=== PATIENT | female | born 1940 | race Caucasian/White ===

== ENCOUNTER 2020-06-04 11:18 | Inpatient (IN) | payer MEDICARE ==
[~2020-06-04 11:18] MED LIST: DEXAMETHASONE SOD PHOSPHATE INJ 4 MG/1 ML VIAL ONE; ETOMIDATE INJ/PF 20 MG/10 ML SDV IV ONE; ONDANSETRON HCL INJ/PF 4 MG/2 ML SDV ONE; PHENYLEPHRINE HCL INJ/PF 10 MG/1 ML SDV ONE
--- NOTE | 2020-06-04 11:29 | ER Document Report ---
ED Medical Screen (RME) - General Chief Complaint: Pain All Over Stated Complaint: PAIN ALL OVER Time Seen by Provider: 06/04/20 11:25 Mode of Arrival: Medic Information source: Patient Notes: 79-year-old female presented to ED for pain all over for week. She states she has not had any fevers. She states in her abdomen or chest back she hurts everywhere. We did attempt to get her feet temperature and we could not get a temperature to read. The pulse ox that there a pulse was 150 but her apical pulse was 100 O2 sats are very low she does look very anemic. We will take her back to her room promptly. I have greeted and performed a rapid initial assessment of this patient. A comprehensive ED assessment and evaluation of the patient, analysis of test results and completion of medical decision making process will be conducted by an additional ED providers.
[2020-06-04] MEDS ORDERED: NORMAL SALINE 1000 ML 1,000 ML IV ONE ×3 (11:44→13:35)
[2020-06-04 12:24] LABS: ABSOLUTE LYMPHOCYTES (AUTO) 1.6 10^3/uL (0.5-4.7); ABSOLUTE MONOCYTES (AUTO) 0.4 10^3/uL (0.1-1.4); ABSOLUTE NEUT (AUTO) 12.3 10^3/uL (1.7-8.2); BASOPHILS % (AUTO) 0.1 % (0-2); LYMPHOCYTES % (AUTO) 11.2 % (13-45); MEAN CORPUSCULAR HEMOGLOBIN 21.3 pg (27.0-33.4); MEAN CORPUSCULAR HGB CONC 28.6 g/dL (32.0-36.0); MEAN CORPUSCULAR VOLUME 75 fl (80-97); PLATELET COUNT 912 10^3/uL (150-450); RED BLOOD COUNT 3.76 10^6/uL (3.72-5.28); RED CELL DISTRIBUTION WIDTH 16.3 % (11.5-14.0); SEGMENTED NEUTROPHILS % (AUTO) 85.7 % (42-78); TOTAL CELLS COUNTED % (AUTO) 100 %; WHITE BLOOD COUNT 14.3 10^3/uL (4.0-10.5)
[2020-06-04 12:35] LABS: ALBUMIN 2.5 g/dL (3.5-5.0); ALKALINE PHOSPHATASE 106 U/L (38-126); ANION GAP 7 (5-19); ASPARTATE AMINO TRANSFERASE 30 U/L (14-36); BILIRUBIN,DIRECT 0.2 mg/dL (0.0-0.4); BILIRUBIN,TOTAL 0.5 mg/dL (0.2-1.3); BLOOD UREA NITROGEN 32 mg/dL (7-20); CALCIUM 11.4 mg/dL (8.4-10.2); CARBON DIOXIDE 27 mmol/L (22-30); CHLORIDE 95 mmol/L (98-107); POTASSIUM 4.4 mmol/L (3.6-5.0); TOTAL PROTEIN 5.3 g/dL (6.3-8.2)
[2020-06-04 12:43] LABS: ANISOCYTOSIS 1+; HYPOCHROMASIA 2+
[2020-06-04 12:44] LABS: POLYCHROMASIA SLIGHT
[2020-06-04 12:45] LABS: OVALOCYTES 2+; PLATELET CLUMPS PRESENT; PLATELET COMMENT INCREASED; POIKILOCYTOSIS 2+; TARGET CELLS SLIGHT
[2020-06-04 12:46] LABS: GLUCOSE 65 mg/dL (75-110)
[2020-06-04] MEDS ORDERED: PIPERACILLIN/TAZOBACTAM 3.375 GM VIAL IV ONE (13:35)
[2020-06-04] MEDS ORDERED: GENTAMICIN SULFATE INJ 80 MG/2 ML VIAL IV ONE (13:35)
--- NOTE | 2020-06-04 13:57 | RADIOLOGY REPORT (SQ) ---
EXAM DESCRIPTION: CT ABDOMEN NO ORAL OR IV; CT CHEST WITHOUT IMAGES COMPLETED DATE/TIME: 06/04/2020 1:23 pm REASON FOR STUDY: pain/hypotension COMPARISON: None. TECHNIQUE: CT scan of the chest performed without intravenous contrast using helical scanning techni que. Images reviewed with lung, soft tissue and bone windows. Reconstructed coronal and sagittal MPR images reviewed. All images stored on PACS. All CT scanners at this facility use dose modulation, iterative reconstruction, and/or weight based d osing when appropriate to reduce radiation dose to as low as reasonably achievable (ALARA). [facility]: Dose Right [facility]: CareDose [facility]: Dose Right [facility]: [employer] 4D [facility]: [employer] RADIATION DOSE: CT Rad equipment meets quality standard of care and radiation dose reduction techniq ues were employed. CTDIvol: 11.1 - 11.2 mGy. DLP: 914 mGy-cm. mGy. LIMITATIONS: No technical limitations. FINDINGS: AXILLAE: No adenopathy. CHEST WALL: No masses. No subcutaneous air. LUNGS: Significant multifocal right-sided consolidation. Large right-sided hiatal hernia containing the majority of the stomach with associated compressive atelectasis. Small bilateral pleural effusio ns. Mild additional left-sided interstitial opacities. No discrete nodules slow evaluation severely limited. PLEURA: No pneumothorax. No pleural thickening or calcifications. THYROID: No masses or significant asymmetry. HILAR AND MEDIASTINAL STRUCTURES: No discrete adenopathy. AORTA AND GREAT VESSELS: Scattered vascular calcifications. No definitive aneurysm. HEART: Normal heart size. Significant three-vessel coronary atherosclerosis. No pericardial effusio n. HARDWARE AND LIFELINES: None. BONES: No acute bony abnormality. No discrete lytic or blastic osseous lesions. OTHER: No other significant finding. IMPRESSION: See below COMPARISON: None. TECHNIQUE: CT scan of the abdomen and pelvis performed without intravenous contrast and withoutoral contrast using helical scanning technique with dynamic intravenous contrast injection. Images review ed with lung, soft tissue and bone windows. Reconstructed coronal and sagittal MPR images reviewed. All images stored on PACS. All CT scanners at this facility use dose modulation, iterative reconstruction, and/or weight based d osing when appropriate to reduce radiation dose to as low as reasonably achievable (ALARA). [facility]: Dose Right [facility]: [employer] [facility]: Dose Right [facility]: [employer] 4D [facility]: [employer] RADIATION DOSE: CT Rad equipment meets quality standard of care and radiation dose reduction techniq ues were employed. CTDIvol: 11.1 - 11.2 mGy. DLP: 914 mGy-cm. mGy. LIMITATIONS: None. FINDINGS: NONCONTRASTED LIVER, SPLEEN, ADRENALS: Evaluation limited by lack of IV contrast. No iden tified significant masses. PANCREAS: No masses. No peripancreatic inflammatory changes. GALLBLADDER: No identified stones by CT criteria. No inflammatory changes to suggest cholecystitis. RIGHT KIDNEY AND URETER: No suspicious masses. Assessment limited by lack of IV contrast. No signif icant calcifications. No hydronephrosis or hydroureter. LEFT KIDNEY AND URETER: No suspicious masses. Assessment limited by lack of IV contrast. No signifi cant calcifications. No hydronephrosis or hydroureter. AORTA AND RETROPERITONEUM: Aortoiliac atherosclerosis without aneurysm. BOWEL AND PERITONEAL CAVITY: Large hiatal hernia with majority of the stomach within the right hemith orax. Evaluation for gastric anatomy limited secondary to motion artifact and lack of contrast. The re is evidence of perforated viscus with large volume pneumoperitoneum. Additionally there is extral uminal gas within the right hemithorax secondary to large hiatal hernia. Site of perforation is not readily identifiable. There are scattered additional foci of gas within the right and left pericolic regions, midline abdomen and bilateral subdiaphragmatic regions. Questionable soft tissue mass with in the region of the cecum (series 3, image 104) with scattered areas of extraluminal gas along the r ight paracolic gutter. Shotty adjacent lymph nodes (series 3, image 111). There is small volume pel braxton ascites. No evidence of intestinal obstruction. APPENDIX: Not definitively identified. ABDOMINAL WALL: Left inguinal hernia containing fat and a loop of bowel. No evidence of proximal obs truction. Midline umbilical hernia containing fat and extraluminal gas. BONES: No acute bony abnormality. Partially visualized right hip arthroplasty. No suspicious lytic or blastic osseous lesions. Multilevel lower lumbar spondylosis and a set arthropathy. OTHER: No other significant finding. IMPRESSION: 1. Large hiatal hernia containing the majority of the stomach which is within the RIGHT hemithorax, chronicity uncertain. There is evidence of a perforated viscus was large volume pneumop eritoneum. The point of perforation is not readily identifiable. Findings may be related to gastric volvulus secondary to large hiatal hernia although delineation of stomach anatomy is limited seconda ry to lack contrast and motion artifact. Additionally there is a questionable soft tissue mass in th e region of the cecum with right pericolonic extraluminal gas. Small volume pelvic ascites, likely r eactive. Recommend emergent surgical consultation. 2. Significant right lower lobe consolidation with small bilateral pleural effusion, possibly atelec tasis or infection. 3. Multiple additional incidental findings as above. Findings discussed with Dr. Sheehan at 1333 hours on 06/04/2020. TECHNICAL DOCUMENTATION: JOB ID: [id number] Quality ID # [id number]: Final reports with documentation of one or more dose reduction techniques (e.g., Au tomated exposure control, adjustment of the mA and/or kV according to patient size, use of iterative reconstruction technique) 2010 [employer]- All Rights Reserved Reading location - IP/workstation name: [email or web address]
--- NOTE | 2020-06-04 14:11 | ER Document Report ---
ED General - General Chief Complaint: Pain All Over Stated Complaint: PAIN ALL OVER Time Seen by Provider: 06/04/20 11:25 Information source: Patient - HPI Notes: Patient is brought in by ambulance complaining of pain all over. Patient states mainly the pain is in the chest and abdomen has been there for a week or longer. She states it is severe and worse with any type of movement. It radiates from the abdomen to the chest. She states is better if she lays still. She denies any types of falls or trauma. She denies any fever. She states she has not had vomiting or diarrhea. She denies any type of cough cold or congestion. She states she does take pain medicine at home chronically but does not know the name of it. She denies knowing any names of any chronic medical problems that she has. - Related Data Allergies/Adverse Reactions: No Known Allergies Allergy (Verified 06/04/20 11:59) Past Medical History - General Information source: Patient - Social History Smoking Status: Never Smoker - He is over and 33 Frequency of alcohol use: None Drug Abuse: None Family History: Reviewed & Not Pertinent - Past Medical History Cardiac Medical History: Reports: Hx Hypertension Review of Systems - Review of Systems Constitutional: Malaise, Weakness Cardiovascular: Chest pain Respiratory: denies: Cough, Short of breath Gastrointestinal: Abdominal pain. denies: Diarrhea, Vomiting -: Yes All other systems reviewed and negative Physical Exam - Vital signs Vitals: Pulse Ox 96 06/04/20 11:45 Interpretation: Hypotensive, Tachypneic - General General appearance: Anxious In distress: Moderate - HEENT Head: Normocephalic, Atraumatic Eyes: Normal Pupils: PERRL - Respiratory Respiratory status: Tachypnea Chest status: Nontender Breath sounds: Decreased air movement, Rhonchi Chest palpation: Normal - Cardiovascular Rhythm: Regular Heart sounds: Normal auscultation Murmur: No - Abdominal Inspection: Normal Distension: No distension Bowel sounds: Absent Tenderness: Tender - Diffusely, Guarding - Back Back: Normal, Nontender - Extremities General upper extremity: Normal inspection, Nontender, Normal color, Normal ROM, Normal temperature General lower extremity: Nontender, Edema - 2+ bilaterally, Normal color, Normal temperature. No: Luba's sign - Neurological Neuro grossly intact: Yes Cognition: Normal Orientation: AAOx4 Luke Coma Scale Eye Opening: Spontaneous Luke Coma Scale Verbal: Oriented Hale Coma Scale Motor: Obeys Commands Luke Coma Scale Total: 15 Speech: Normal Sensory: Normal - Psychological Associated symptoms: Normal affect, Normal mood - Skin Skin Temperature: Warm Skin Moisture: Dry Skin Color: Pale Course - Re-evaluation Re-evalutation: 06/04/20 14:11 Patient presents by ambulance with a complaint of pain all over. Patient actually described to me though that the pain is mainly in the chest and abdomen but has been there more than a week. She states that she has not been able to eat but she has not had any vomiting or diarrhea. Patient denies any previous history of similar problems and is not able to tell me of any chronic medical problems. Patient is not accompanied by any family. Patient's CT and labs show the patient is acidotic with dehydration and patient has a perforated intra-a bdominal viscus. In discussions with the radiologist the exact location of the perforation is unclear. I have consulted surgery who is consulting with family of the patient and is currently treating and examining the patient in the emergency department. - Vital Signs Vital signs: Temp Pulse Resp BP Pulse Ox 17 88/65 L 96 06/04/20 12:46 06/04/20 12:46 06/04/20 12:46 - Laboratory Results Result Diagrams: 06/04/20 11:45 06/04/20 11:45 Laboratory Results Interpreted: 06/04/20 06/04/20 06/04/20 11:45 11:45 12:14 WBC 14.3 H Hgb 8.0 L Hct 28.0 L MCV 75 L MCH 21.3 L MCHC 28.6 L RDW 16.3 H Plt Count 912 H Lymph % (Auto) 11.2 L Absolute Neuts (auto) 12.3 H Seg Neutrophils % 85.7 H Sodium 128.9 L Chloride 95 L BUN 32 H Creatinine 2.18 H Est GFR ( Amer) 26 L Est GFR (MDRD) Non-Af 22 L Glucose 65 L Lactic Acid 4.6 H Calcium 11.4 H Total Protein 5.3 L Albumin 2.5 L Critical Laboratory Results Reviewed: Yes Attending or Supervising Physician who Reviewed Labs: YADIRA WAN - Radiology Results Critical Radiology Results Reviewed: Yes Attending or Supervising Physician who Reviewed Radiology: She is mes - EKG Interpretation by Me EKG shows normal: Sinus rhythm Rate: Normal - 78 Rhythm: NSR P Waves: LAE Critical Care Note - Critical Care Note Total time excluding time spent on procedures (mins): 60 Comments: 60 minutes of critical care time were spent on this patient with a perforated viscus, septic shock. This time spent doing multiple reassessments. Was spent discussing with media consultant outside sales. It was spent reviewing imaging and laboratory values. Discharge - Discharge Clinical Impression: Perforated abdominal viscus Sepsis Qualifiers: Sepsis type: sepsis due to unspecified organism Sepsis acute organ dysfunction status: with acute organ dysfunction Severe sepsis acute organ dysfunction type: acute renal failure Acute renal failure type: unspecified Severe sepsis shock status: without septic shock Qualified Code(s): A41.9 - Sepsis, unspecified organism; R65.20 - Severe sepsis without septic shock; N17.9 - Acute kidney failure, unspecified Condition: Critical Disposition: ADMITTED INPATIENT Admitting Provider: Surgicalist Unit Admitted: OR
[2020-06-04] MEDS ORDERED: NORMAL SALINE 250 ML IV PRN ×2 (14:25)
--- NOTE | 2020-06-04 14:35 | PDOC H&P ---
History of Present Illness Patient complains of: diffulse abdominal pain History of Present Illness: YENNY FOOTE is a 79 year old [id number] female presented to ED for pain all over for week. She states she has not had any fevers. She states in her abdomen or chest back she hurts everywhere. We did attempt to get her feet temperature and we could not get a temperature to read. The pulse ox that there a pulse was 150 but her apical pulse was 100 O2 sats are very low she does look very anemic. We will take her back to her room promptly pt has not had any significant medical care for last 20yrs. has denied pain to her family for over the last wk. Past Medical History Cardiac Medical History: Reports: Hypertension GI Medical History: Reports: Hiatal Hernia Musculoskeltal Medical History: Reports: Other - hip replacement Social History Smoking Status: Never Smoker - He is over and 33 Family History Family History: Reviewed & Not Pertinent Parental Family History Reviewed: No Children Family History Reviewed: NA Sibling(s) Family History Reviewed.: NA Medication/Allergy Home Medications: Unobtainable 06/04/20 Allergies/Adverse Reactions: No Known Allergies Allergy (Verified 06/04/20 11:59) Review of Systems ROS unobtainable: Due to mental status Physical Exam Vital Signs: Temp Pulse Resp BP Pulse Ox 17 88/65 L 96 06/04/20 12:46 06/04/20 12:46 06/04/20 12:46 Intake & Output 06/03/20 06/04/20 06/05/20 06:59 06:59 06:59 Intake Total 1000 Balance 1000 Weight 76.1 kg General appearance: PRESENT: obese, other - appearse severly ill. pale, confused Head exam: PRESENT: atraumatic Eye exam: PRESENT: conjunctiva pale Ear exam: PRESENT: normal external ear exam Mouth exam: PRESENT: dry mucosa Teeth exam: PRESENT: poor dentation Neck exam: PRESENT: full ROM Respiratory exam: PRESENT: clear to auscultation juan carlos, tachypnea Cardiovascular exam: PRESENT: tachycardia Pulses: PRESENT: +1 pedal pulses bilateral Breast: PRESENT: Normal GI/Abdominal exam: PRESENT: other - diffuslly tender rebound tenderness Rectal exam: PRESENT: deferred Extremities exam: PRESENT: full ROM Musculoskeletal exam: PRESENT: normal inspection Neurological exam: PRESENT: altered Psychiatric exam: PRESENT: anxious Skin exam: PRESENT: dry Results Laboratory Results: 06/04/20 11:45 06/04/20 11:45 06/04/20 06/04/20 06/04/20 11:45 11:45 12:14 WBC 14.3 H RBC 3.76 Hgb 8.0 L Hct 28.0 L MCV 75 L MCH 21.3 L MCHC 28.6 L RDW 16.3 H Plt Count 912 H Seg Neutrophils % 85.7 H Sodium 128.9 L Potassium 4.4 Chloride 95 L Carbon Dioxide 27 Anion Gap 7 BUN 32 H Creatinine 2.18 H Est GFR ( Amer) 26 L Glucose 65 L Lactic Acid 4.6 H Calcium 11.4 H Total Bilirubin 0.5 AST 30 Alkaline Phosphatase 106 Total Protein 5.3 L Albumin 2.5 L Impressions: Abdomen CT 06/04/20 11:42 IMPRESSION: See below IMPRESSION: 1. Large hiatal hernia containing the majority of the stomach which is within the RIGHT hemithorax, chronicity uncertain. There is evidence of a perforated viscus was large volume pneumoperitoneum. The point of perforation is not readily identifiable. Findings may be related to gastric volvulus secondary to large hiatal hernia although delineation of stomach anatomy is limited secondary to lack contrast and motion artifact. Additionally there is a questionable soft tissue mass in the region of the cecum with right pericolonic extraluminal gas. Small volume pelvic ascites, likely reactive. Recommend emergent surgical consultation. 2. Significant right lower lobe consolidation with small bilateral pleural effusion, possibly atelectasis or infection. 3. Multiple additional incidental findings as above. Findings discussed with Dr. Sheehan at 1333 hours on 06/04/2020. Chest CT 06/04/20 11:42 IMPRESSION: See below IMPRESSION: 1. Large hiatal hernia containing the majority of the stomach which is within the RIGHT hemithorax, chronicity uncertain. There is evidence of a perforated viscus was large volume pneumoperitoneum. The point of perforation is not readily identifiable. Findings may be related to gastric volvulus secondary to large hiatal hernia although delineation of stomach anatomy is limited secondary to lack contrast and motion artifact. Additionally there is a questionable soft tissue mass in the region of the cecum with right pericolonic extraluminal gas. Small volume pelvic ascites, likely reactive. Recommend emergent surgical consultation. 2. Significant right lower lobe consolidation with small bilateral pleural effusion, possibly atelectasis or infection. 3. Multiple additional incidental findings as above. Findings discussed with Dr. Sheehan at 1333 hours on 06/04/2020. Assessment & Plan - Time Anticipated Discharge Disposition: Home, Self Care Anticipated Discharge Timeframe: unk - Plan Summary Plan Summary: perforated viscus anemia, will hydrated, blood to or for exploratory laarotomy
[2020-06-04] MEDS: METRONIDAZOLE 500 MG/NS RTU 500 MG/100 ML RTUPB IV ONE (14:45)
[2020-06-04] MEDS ORDERED: MORPHINE SULFATE 10 MG/ML INJ IV ONE (15:01)
--- NOTE | 2020-06-04 15:08 | CRITICAL CARE ADMISSION REPORT ---
HPI Date:: 06/04/20 Time:: 14:30 Reason for ICU Reason:: Perforated abdominal viscus, SIRS/Sepsis. Admission Date/Time & PCP: Admission Date/Time: 06/04/20 14:43 Primary Care Provider: HPI: YENNY FOOTE is a 79 year old [id number] female presented to ED for pain all over for week. She states she has not had any fevers. She states in her abdomen or chest back she hurts everywhere. We did attempt to get her feet temperature and we could not get a temperature to read. The pulse ox that there a pulse was 150 but her apical pulse was 100 O2 sats are very low she does look very anemic. We will take her back to her room promptly pt has not had any significant medical care for last 20yrs. has denied pain to her family for over the last wk. As above. She is still in pain, mostly abdominal and chest. Appears very pale. Hgb 8. To go emergently to OR. History obtained from:: Dr. Morales and Dr. Sheehan. Minimal from patient. - Diagnosis/Plan (1) Perforated abdominal viscus Is this a current diagnosis for this admission?: Yes Plan: Source unknown. She has a large hiatal hernia in R thorax. May have volvulus. Possible mass in RLQ could be perforated cancer. Needs operative treatment. (2) Sepsis Qualifiers: Sepsis type: sepsis due to unspecified organism Sepsis acute organ dysfunction status: with acute organ dysfunction Severe sepsis acute organ dysfunction type: acute renal failure Acute renal failure type: unspecified Severe sepsis shock status: without septic shock Qualified Code(s): A41.9 - Sepsis, unspecified organism; R65.20 - Severe sepsis without septic shock; N17.9 - Acute kidney failure, unspecified Is this a current diagnosis for this admission?: Yes Plan: With tachypnea, tachycardia and WBC 14.5 she meets SIRS criteria. Lactic acid 4.3. Perforated viscus also means intra-abdominal sepsis is likely. Plan Summary: To OR and then ICU post op. Probably intubated. Past Medical History Cardiac Medical History: Reports: Hypertension, Other - She claim to not be a jin. No medical care for 20 years. GI Medical History: Reports: Hiatal Hernia Musculoskeltal Medical History: Reports: Other - hip replacement Social/Family History - Social History Smoking Status: Never Smoker - He is over and 33 - Medication/Allergies Home Medications: Unobtainable 06/04/20 Allergies/Adverse Reactions: No Known Allergies Allergy (Verified 06/04/20 11:59) Review of Systems ROS unobtainable: Due to mental status Physical Exam Vital Signs: Temp Pulse Resp BP Pulse Ox 96.1 F L 92 26 H 115/68 99 06/04/20 14:43 06/04/20 14:43 06/04/20 14:50 06/04/20 14:43 06/04/20 14:43 Intake & Output 06/03/20 06/04/20 06/05/20 06:59 06:59 06:59 Intake Total 1999 Balance 1999 Weight 76.1 kg Weight/Height Weight 76.1 kg General appearance: PRESENT: mild distress Head exam: PRESENT: atraumatic, normocephalic Eye exam: PRESENT: conjunctiva pink, EOMI, PERRLA. ABSENT: scleral icterus Ear exam: PRESENT: normal external ear exam Mouth exam: PRESENT: moist, tongue midline Respiratory exam: PRESENT: clear to auscultation juan carlos. ABSENT: rales, rhonchi, wheezes Cardiovascular exam: PRESENT: RRR, tachycardia. ABSENT: diastolic murmur, rubs, systolic murmur GI/Abdominal exam: PRESENT: diminished bowel sounds, guarding, rebound, rigid, tenderness Rectal exam: PRESENT: deferred Gentrourinary exam: PRESENT: indwelling catheter Extremities exam: PRESENT: full ROM. ABSENT: calf tenderness, clubbing, pedal edema Musculoskeletal exam: PRESENT: normal inspection Neurological exam: PRESENT: alert, altered, awake, CN II-XII grossly intact Psychiatric exam: PRESENT: appropriate affect, normal mood. ABSENT: homicidal ideation, suicidal ideation Skin exam: PRESENT: dry, intact, pallor, warm. ABSENT: cyanosis, rash Laboratory/Radiographs Laboratory Results: 06/04/20 11:45 06/04/20 11:45 06/04/20 06/04/20 06/04/20 11:45 11:45 12:14 WBC 14.3 H RBC 3.76 Hgb 8.0 L Hct 28.0 L MCV 75 L MCH 21.3 L MCHC 28.6 L RDW 16.3 H Plt Count 912 H Seg Neutrophils % 85.7 H Sodium 128.9 L Potassium 4.4 Chloride 95 L Carbon Dioxide 27 Anion Gap 7 BUN 32 H Creatinine 2.18 H Est GFR ( Amer) 26 L Glucose 65 L Lactic Acid 4.6 H Calcium 11.4 H Total Bilirubin 0.5 AST 30 Alkaline Phosphatase 106 Total Protein 5.3 L Albumin 2.5 L Impressions: Abdomen CT 06/04/20 11:42 IMPRESSION: See below IMPRESSION: 1. Large hiatal hernia containing the majority of the stomach which is within the RIGHT hemithorax, chronicity uncertain. There is evidence of a perforated viscus was large volume pneumoperitoneum. The point of perforation is not readily identifiable. Findings may be related to gastric volvulus secondary to large hiatal hernia although delineation of stomach anatomy is limited secondary to lack contrast and motion artifact. Additionally there is a questionable soft tissue mass in the region of the cecum with right pericolonic extraluminal gas. Small volume pelvic ascites, likely reactive. Recommend emergent surgical consultation. 2. Significant right lower lobe consolidation with small bilateral pleural effusion, possibly atelectasis or infection. 3. Multiple additional incidental findings as above. Findings discussed with Dr. Sheehan at 1333 hours on 06/04/2020. Chest CT 06/04/20 11:42 IMPRESSION: See below IMPRESSION: 1. Large hiatal hernia containing the majority of the stomach which is within the RIGHT hemithorax, chronicity uncertain. There is evidence of a perforated viscus was large volume pneumoperitoneum. The point of perforation is not readily identifiable. Findings may be related to gastric volvulus secondary to large hiatal hernia although delineation of stomach anatomy is limited secondary to lack contrast and motion artifact. Additionally there is a questionable soft tissue mass in the region of the cecum with right pericolonic extraluminal gas. Small volume pelvic ascites, likely reactive. Recommend emergent surgical consultation. 2. Significant right lower lobe consolidation with small bilateral pleural effusion, possibly atelectasis or infection. 3. Multiple additional incidental findings as above. Findings discussed with Dr. Sheehan at 1333 hours on 06/04/2020. EKG: Sinus rhytym. Now tachycardic to 100. 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 All labs, radiographs, diagnostic studies and EKGs were personally reviewed: Yes In addition, reports of radiographic and diagnostic studies were read: Yes Critical Time Critical Time (minutes): 40 -: The care of a critically ill patient is dynamic. This note represents a static moment in the admission process. Orders and treatments may be given simultaneously and urgently, and time is not employer relations representative of the treatment process. This patient requires Critical Care secondary to life threatening organ or limb dysfunction. Without Critical Care services, the patient is at risk for increased mortality and morbidity.
[2020-06-04 15:25] LABS: COLOR,URINE YELLOW
[2020-06-04 15:26] LABS: APPEARANCE,URINE CLOUDY; BILIRUBIN,URINE NEGATIVE (NEGATIVE); GLUCOSE, URINE NEGATIVE (NEGATIVE); KETONES,URINE NEGATIVE (NEGATIVE); PROTEIN,URINE 30 mg/dL (NEGATIVE); URINE SPECIFIC GRAVITY 1.017; UROBILINOGEN,URINE NEGATIVE mg/dL (<2.0)
[2020-06-04 15:29] LABS: BACTERIA,URINE 4+ /HPF; RBC,URINE NONE SEEN /HPF
[2020-06-04] MEDS ORDERED: BUPIVACAINE INJ/PF LIPOSOME/PF 266 MG/20 ML SDV ONE (15:55)
[2020-06-04] MEDS ORDERED: FENTANYL CITRATE INJ/PF 100 MCG/2 ML AMPUL ONE (16:03)
[2020-06-04] MEDS ORDERED: HYDROMORPHONE HCL INJ/PF 2 MG/ML AMPULE ONE (16:04)
[2020-06-04] MEDS ORDERED: VASOPRESSIN INJ 20 UNIT/1 ML VIAL ONE (16:04)
[2020-06-04] MEDS ORDERED: NOREPINEPHRINE BITARTRATE INJ/PF 4 MG/4 ML SDV IV ONE ×2 (16:10→20:26)
[2020-06-04] MEDS ORDERED: DEXTROSE 5%-LACTATED RINGERS 1,000 ML IV PRN (18:21)
--- NOTE | 2020-06-04 18:21 | Operative Report ---
Nonrecallable Operative Report DATE OF SURGERY: 06/04/20 PREOPERATIVE DIAGNOSIS: perforated viscus POSTOPERATIVE DIAGNOSIS: perforated cecal cancer OPERATION: exploratory laparotomy and right hemicolectomy SURGEON: CARINE SANTIAGO [employer] APPRENTICE: CHIDI HART - student FA ANESTHESIA: GA TISSUE REMOVED OR ALTERED: right colon COMPLICATIONS: none ESTIMATED BLOOD LOSS: 200 INTRAOPERATIVE FINDINGS: perforated cecal cancer PROCEDURE: Patient was brought to the operating room awake alert in stable condition placed in the operative table supine position induced under general esthesia intubated. After appropriate timeout and site verification the procedure commenced. Using a Seldinger technique a right femoral art line was placed using percutaneous technique. Is connected to the monitor for intra operative arterial pressures. After prepping the and draping the abdomen in the midline incision was used from above the umbilicus to just above the pubic symphysis dissection was carried down through subcutaneous tissue with Bovie cautery midline fascia was entered. There was a large stool and air in the abdominal cavity upon first entering the it. The small bowel was eviscerated and the abdominal cavity was copiously irrigated with about 6 L of saline. Upon suctioning all the way we were able to palpate a large cecal mass the right colon was delivered to the abdominal wound the peritoneal reflection was along the white line of Toldt was taken down with Bovie cautery. We came across the terminal ileum with 1 firing of the DERRICK stapler with a blue load and came across the mid transverse colon with 1 firing of the end of the DERRICK stapler with a blue load we then came across the right colonic mesentery close to the aorta with multiple applications of the LigaSure device. The specimen was removed. The abdomen was then then again irrigated with normal saline. An anastomosis was then accomplished between the terminal ileum and the mid transverse colon using sewn technique the outer layer was interrupted 3-0 silk the running inner layer was a running 3-0 Vicryl and the second layer was a 3-0 silk. The mesenteric defect was closed with a 2 oh V-Loc. The abdomen was again irrigated another 4 L of saline. The abdomen was palpated she was noted to have a very large hiatal hernia with much of her stomach up in her right chest. I irrigated out the sac with normal saline and obtain some stool substances from the hernia sac in the right chest. He was irrigated till clear. We then returned the small bowel to the abdominal cavity and closed the midline fascia with a running double looped 0 Maxon's suture we closed the skin with standard skin clips. Estimated blood loss is less than 200 cc sponge needle counts were correct x2 the patient remained intubated was transferred to ICU in stable condition.
[2020-06-04] MEDS ORDERED: ONDANSETRON HCL INJ/PF 4 MG/2 ML SDV IV PRN (18:23)
[2020-06-04] MEDS ORDERED: GLUCAGON,HUMAN RECOMB 1 MG INJ SUBCUT PRN (18:23)
[2020-06-04] MEDS ORDERED: DEXTROSE 40% GEL 15 GM TUBE PO PRN ×2 (18:23)
[2020-06-04] MEDS ORDERED: DEXTROSE 50%-WATER 25 GM/50 ML DISP.SYRIN IV PRN ×2 (18:23)
[2020-06-04] MEDS ORDERED: RINGERS SOLUTION,LACTATED 1,000 ML IV PRN (18:23)
[2020-06-04] MEDS ORDERED: PHARMACY COMMUNICATION ORDER MC NR (18:30)
--- NOTE | 2020-06-04 18:54 | EKG REPORT ---
SEVERITY:- ABNORMAL ECG - SINUS RHYTHM LEFT ATRIAL ABNORMALITY BASELINE ARTIFACTS, CONSIDER REPEATING EKG CONSIDER ANTERIOR INFARCT : Confirmed by: Jose Boston 04-Jun-2020 18:53:49
[2020-06-04] MEDS: DEXMEDETOMIDINE IN 0.9 % NACL 400 MCG/100 ML RTUPB IV PRN ×2 (19:15→23:10)
[2020-06-04] MEDS ORDERED: RINGERS SOLUTION,LACTATED 1,000 ML IV ONE (20:25)
[2020-06-04] MEDS: DEXTROSE 5%-WATER 250 ML with NOREPINEPHRINE BITARTRATE 4 MG IV PRN ×4 (20:26→23:51)
[2020-06-04 20:32] LABS: ARTERIAL BLOOD BASE EXCESS -4.5 mmol/L; ARTERIAL BLOOD H2CO3 0.84 mmol/L (1.05-1.35); ARTERIAL BLOOD HCO3 18.5 mmol/L (20-24); ARTERIAL BLOOD O2 SATURATION 98.2 % (94-98); ARTERIAL BLOOD PH 7.44 (7.35-7.45); ARTERIAL BLOOD PO2 107.9 mmHg (80-100); ARTERIAL BLOOD TOTAL CO2 19.3 mmol/L (21-25)
[2020-06-04] MEDS: ALBUMIN HUMAN 12.5 GM/50 ML RTUINJ IV SCH ×3 (20:40→20:45)
[2020-06-04 20:44] LABS: ARTERIAL BLOOD FIO2 60%
[2020-06-04] MEDS: FAMOTIDINE INJ/PF 20 MG/2 ML SDV IV SCH (21:31)
[2020-06-04] MEDS: AMPICILLIN SODIUM/SULBACTAM NA 3 GM in NORMAL SALINE 100 ML IV SCH (21:41)
[2020-06-04] MEDS ORDERED: FAMOTIDINE INJ/PF 20 MG/2 ML SDV IV SCH (22:00)
[2020-06-04 22:22] LABS: HEMATOCRIT 30.7 % (36.0-47.0); HEMOGLOBIN 9.6 g/dL (12.0-15.5); MEAN CORPUSCULAR HEMOGLOBIN 24.6 pg (27.0-33.4); MEAN CORPUSCULAR HGB CONC 31.3 g/dL (32.0-36.0); PLATELET COUNT 597 10^3/uL (150-450); RED BLOOD COUNT 3.91 10^6/uL (3.72-5.28); RED CELL DISTRIBUTION WIDTH 17.3 % (11.5-14.0); WHITE BLOOD COUNT 14.9 10^3/uL (4.0-10.5)
[2020-06-04 22:25] LABS: MEAN CORPUSCULAR VOLUME 79 fl (80-97)
[2020-06-04] MEDS: RINGERS SOLUTION,LACTATED 1,000 ML IV PRN (22:40)
[2020-06-04] MEDS: FENTANYL CITRATE/PF 600 MCG/60 ML BAG IV PRN (23:00)
--- NOTE | 2020-06-05 02:43 | Operative Report ---
Bedside Procedure - History of Present Illness Indication for Procedure: hypo volemic shock Provider: VIOLA MEJIA - Central Line Internal jugular Consent obtained: Yes Central line pre-insertion: Sterile PPE donned, Chloraprep applied, Sterile drapes applied Central line lumen type: Triple Anesthetic type: 1% Lidocaine mL's of anesthesia: 8 Ultrasound guided: Yes Line secured with sutures: Yes Central line post-insertion: Blood return from lumens, Biopatch applied, Sutured, Sterile dressing applied, Position confirmed w/ CXR Complications: No
--- NOTE | 2020-06-05 03:04 | RADIOLOGY REPORT (SQ) ---
CLINICAL HISTORY: line placement COMPARISON: None. TECHNIQUE: XR CHEST 1 VIEW 06/05/2020 12:00 AM GERIATRIC PSYCHIATRIST FINDINGS: The heart is enlarged. There is mild bibasilar airspace disease. There are bilateral pleural effusions. There is no pneumothorax. There are no acute osseous findings. Endotracheal tube tip is in the midtrachea. NG tube tip is likely in the stomach but follows an unusual course, likely due to patient's large hiatal hernia. Right IJ central line tip is in the lower SVC. IMPRESSION: No pneumothorax following right IJ central line placement.
[2020-06-05] MEDS: DEXTROSE 5%-WATER 250 ML with NOREPINEPHRINE BITARTRATE 4 MG IV PRN ×10 (03:15→22:07)
[2020-06-05 04:25] LABS: ABSOLUTE LYMPHOCYTES (AUTO) 1.4 10^3/uL (0.5-4.7); ABSOLUTE MONOCYTES (AUTO) 0.4 10^3/uL (0.1-1.4); ABSOLUTE NEUT (AUTO) 14.6 10^3/uL (1.7-8.2); BASOPHILS % (AUTO) 0.2 % (0-2); HEMATOCRIT 31.4 % (36.0-47.0); HEMOGLOBIN 9.8 g/dL (12.0-15.5); LYMPHOCYTES % (AUTO) 8.8 % (13-45); MEAN CORPUSCULAR HEMOGLOBIN 24.4 pg (27.0-33.4); MEAN CORPUSCULAR HGB CONC 31.1 g/dL (32.0-36.0); MEAN CORPUSCULAR VOLUME 78 fl (80-97); MONOCYTES % (AUTO) 2.5 % (3-13); PLATELET COUNT 599 10^3/uL (150-450); RED BLOOD COUNT 4.01 10^6/uL (3.72-5.28); RED CELL DISTRIBUTION WIDTH 16.6 % (11.5-14.0); SEGMENTED NEUTROPHILS % (AUTO) 88.5 % (42-78); TOTAL CELLS COUNTED % (AUTO) 100 %; WHITE BLOOD COUNT 16.5 10^3/uL (4.0-10.5)
[2020-06-05 04:46] LABS: ALKALINE PHOSPHATASE 47 U/L (38-126); ANION GAP 5 (5-19); ASPARTATE AMINO TRANSFERASE 30 U/L (14-36); BILIRUBIN,DIRECT 0.6 mg/dL (0.0-0.4); BILIRUBIN,TOTAL 1.5 mg/dL (0.2-1.3); BLOOD UREA NITROGEN 29 mg/dL (7-20); CALCIUM 8.9 mg/dL (8.4-10.2); CARBON DIOXIDE 21 mmol/L (22-30); CHLORIDE 104 mmol/L (98-107); GLUCOSE 119 mg/dL (75-110); POTASSIUM 4.6 mmol/L (3.6-5.0); TOTAL PROTEIN 3.9 g/dL (6.3-8.2)
[2020-06-05] MEDS: AMPICILLIN SODIUM/SULBACTAM NA 3 GM in NORMAL SALINE 100 ML IV SCH ×3 (05:05→21:03)
[2020-06-05] MEDS: RINGERS SOLUTION,LACTATED 1,000 ML IV PRN ×2 (05:06→14:35)
[2020-06-05] MEDS: ALBUMIN HUMAN 12.5 GM/50 ML RTUINJ IV SCH ×4 (06:15→09:44)
[2020-06-05] MEDS ORDERED: NOREPINEPHRINE BITARTRATE INJ/PF 4 MG/4 ML SDV IV ONE (06:28)
[2020-06-05] MEDS ORDERED: ALBUMIN HUMAN 12.5 GM/50 ML RTUINJ IV ONE ×3 (06:30→06:40)
[2020-06-05] MEDS: DEXMEDETOMIDINE IN 0.9 % NACL 400 MCG/100 ML RTUPB IV PRN ×2 (06:36→20:24)
[2020-06-05] MEDS ORDERED: RINGERS SOLUTION,LACTATED 1,000 ML IV ONE (08:36)
--- NOTE | 2020-06-05 08:53 | PDOC CRITICAL CARE PROG REPORT ---
General Date:: 06/05/20 ICU Day:: 2 Ventilator Day:: 2 Hospital Day:: 2 Resuscitation Status: Full Code Events in the past 12 to 24 Hours:: To OR for repair of perforated colon cancer with R hemicolectomy. Review of systems relevant to events:: GI, CV. Reason for ICU Addmission:: Perforated abdominal viscus, SIRS/Sepsis. Now intubated and on levophed post op. - Medications: Medications reviewed and adjusted accordingly: Yes Vasopressors:: Levophed Sedation:: Precedex, fentanyl. Physical Exam Vital Signs: Temp Pulse Resp BP Pulse Ox 100.2 F 73 16 95/47 L 97 06/05/20 05:00 06/04/20 19:30 06/05/20 06:10 06/05/20 06:10 06/05/20 08:27 Intake & Output 06/04/20 06/05/20 06/06/20 06:59 06:59 06:59 Intake Total 35735 37 Output Total 45 Balance 46704 37 Weight 76.4 kg Weight/Height Weight 76.4 kg Height 5 ft 3 in General appearance: PRESENT: no acute distress Head exam: PRESENT: atraumatic, normocephalic Eye exam: PRESENT: conjunctiva pink, EOMI, PERRLA. ABSENT: scleral icterus Ear exam: PRESENT: normal external ear exam Mouth exam: PRESENT: moist, tongue midline Respiratory exam: PRESENT: clear to auscultation juan carlos. ABSENT: rales, rhonchi, wheezes Cardiovascular exam: PRESENT: RRR. ABSENT: diastolic murmur, rubs, systolic murmur GI/Abdominal exam: PRESENT: diminished bowel sounds, soft, tenderness - From incision.. ABSENT: distended, guarding, mass, organolmegaly, rebound Rectal exam: PRESENT: deferred Gentrourinary exam: PRESENT: indwelling catheter Extremities exam: PRESENT: full ROM. ABSENT: calf tenderness, clubbing, pedal edema Neurological exam: PRESENT: altered, CN II-XII grossly intact, other - Sedated. Skin exam: PRESENT: dry, intact, warm. ABSENT: cyanosis, rash Tubes/Lines: PRESENT: Endotracheal Tube, Central Line, Nasogastic Tube Laboratory/Radiographs Laboratory Results: 06/05/20 04:15 06/05/20 04:15 06/04/20 06/04/20 06/04/20 11:45 11:45 12:14 WBC 14.3 H RBC 3.76 Hgb 8.0 L Hct 28.0 L MCV 75 L MCH 21.3 L MCHC 28.6 L RDW 16.3 H Plt Count 912 H Seg Neutrophils % 85.7 H Carbonic Acid HCO3/H2CO3 Ratio ABG pH ABG pCO2 ABG pO2 ABG HCO3 ABG O2 Saturation ABG Base Excess FiO2 Sodium 128.9 L Potassium 4.4 Chloride 95 L Carbon Dioxide 27 Anion Gap 7 BUN 32 H Creatinine 2.18 H Est GFR ( Amer) 26 L Glucose 65 L Lactic Acid 4.6 H Calcium 11.4 H Total Bilirubin 0.5 AST 30 Alkaline Phosphatase 106 Total Protein 5.3 L Albumin 2.5 L Urine Color Urine Appearance Urine pH Ur Specific [place] Urine Protein Urine Glucose (UA) Urine Ketones Urine Blood Blood Type Antibody Screen 06/04/20 06/04/20 06/04/20 12:14 14:15 20:10 WBC RBC Hgb Hct MCV MCH MCHC RDW Plt Count Seg Neutrophils % Carbonic Acid 0.84 L HCO3/H2CO3 Ratio 22:1 ABG pH 7.44 ABG pCO2 28.0 L ABG pO2 107.9 H ABG HCO3 18.5 L ABG O2 Saturation 98.2 H ABG Base Excess -4.5 FiO2 60% Sodium Potassium Chloride Carbon Dioxide Anion Gap BUN Creatinine Est GFR ( Amer) Glucose Lactic Acid Calcium Total Bilirubin AST Alkaline Phosphatase Total Protein Albumin Urine Color YELLOW Urine Appearance CLOUDY Urine pH 5.0 Ur Specific [place] 1.017 Urine Protein 30 H Urine Glucose (UA) NEGATIVE Urine Ketones NEGATIVE Urine Blood NEGATIVE Blood Type B POSITIVE Antibody Screen NEGATIVE 06/04/20 06/04/20 06/05/20 22:00 22:00 04:15 WBC 14.9 H 16.5 H RBC 3.91 4.01 Hgb 9.6 L 9.8 L Hct 30.7 L 31.4 L MCV 79 L D 78 L MCH 24.6 L 24.4 L MCHC 31.3 L 31.1 L RDW 17.3 H 16.6 H Plt Count 597 H 599 H Seg Neutrophils % 88.5 H Carbonic Acid HCO3/H2CO3 Ratio ABG pH ABG pCO2 ABG pO2 ABG HCO3 ABG O2 Saturation ABG Base Excess FiO2 Sodium Potassium Chloride Carbon Dioxide Anion Gap BUN Creatinine Est GFR ( Amer) Glucose Lactic Acid 3.7 H Calcium Total Bilirubin AST Alkaline Phosphatase Total Protein Albumin Urine Color Urine Appearance Urine pH Ur Specific [place] Urine Protein Urine Glucose (UA) Urine Ketones Urine Blood Blood Type Antibody Screen 06/05/20 04:15 WBC RBC Hgb Hct MCV MCH MCHC RDW Plt Count Seg Neutrophils % Carbonic Acid HCO3/H2CO3 Ratio ABG pH ABG pCO2 ABG pO2 ABG HCO3 ABG O2 Saturation ABG Base Excess FiO2 Sodium 129.5 L Potassium 4.6 Chloride 104 Carbon Dioxide 21 L Anion Gap 5 BUN 29 H Creatinine 2.15 H Est GFR ( Amer) 27 L Glucose 119 H Lactic Acid Calcium 8.9 Total Bilirubin 1.5 H AST 30 Alkaline Phosphatase 47 Total Protein 3.9 L Albumin 2.0 L Urine Color Urine Appearance Urine pH Ur Specific [place] Urine Protein Urine Glucose (UA) Urine Ketones Urine Blood Blood Type Antibody Screen Impressions: Abdomen CT 06/04/20 11:42 IMPRESSION: See below IMPRESSION: 1. Large hiatal hernia containing the majority of the stomach which is within the RIGHT hemithorax, chronicity uncertain. There is evidence of a perforated viscus was large volume pneumoperitoneum. The point of perforation is not readily identifiable. Findings may be related to gastric volvulus secondary to large hiatal hernia although delineation of stomach anatomy is limited secondary to lack contrast and motion artifact. Additionally there is a questionable soft tissue mass in the region of the cecum with right pericolonic extraluminal gas. Small volume pelvic ascites, likely reactive. Recommend emergent surgical consultation. 2. Significant right lower lobe consolidation with small bilateral pleural effusion, possibly atelectasis or infection. 3. Multiple additional incidental findings as above. Findings discussed with Dr. Sheehan at 1333 hours on 06/04/2020. Chest CT 06/04/20 11:42 IMPRESSION: See below IMPRESSION: 1. Large hiatal hernia containing the majority of the stomach which is within the RIGHT hemithorax, chronicity uncertain. There is evidence of a perforated viscus was large volume pneumoperitoneum. The point of perforation is not readily identifiable. Findings may be related to gastric volvulus secondary to large hiatal hernia although delineation of stomach anatomy is limited secondary to lack contrast and motion artifact. Additionally there is a questionable soft tissue mass in the region of the cecum with right pericolonic extraluminal gas. Small volume pelvic ascites, likely reactive. Recommend emergent surgical consultation. 2. Significant right lower lobe consolidation with small bilateral pleural effusion, possibly atelectasis or infection. 3. Multiple additional incidental findings as above. Findings discussed with Dr. Sheehan at 1333 hours on 06/04/2020. Chest X-Ray 06/05/20 00:00 IMPRESSION: No pneumothorax following right IJ central line placement. All labs, radiographs, diagnostic studies and EKGs were personally reviewed: Yes In addition, reports of radiographic and diagnostic studies were read: Yes Assessment and Plan - Diagnosis (1) Perforated abdominal viscus Is this a current diagnosis for this admission?: Yes Plan: Resolved with R hemilocolectomy. (2) Sepsis Qualifiers: Sepsis type: sepsis due to unspecified organism Sepsis acute organ dysfunction status: with acute organ dysfunction Severe sepsis acute organ dysfunction type: acute renal failure Acute renal failure type: unspecified Severe sepsis shock status: without septic shock Qualified Code(s): A41.9 - Sepsis, unspecified organism; R65.20 - Severe sepsis without septic shock; N17.9 - Acute kidney failure, unspecified Is this a current diagnosis for this admission?: Yes Plan: Faily well resolved with surgery. Lactic acid trending down in less that 24 hours-a good prognostic sign. (3) Dehydration Is this a current diagnosis for this admission?: Yes Plan: She was certainly dehydrated on presentation. The OR and peritonitis has made her peritoneum edematous which can sequester much fluid. Bolus ordered. (4) Oliguria Is this a current diagnosis for this admission?: Yes Plan: Cr slightly elevated and she is on levophed making her renal vessels constricted she needs more fluid. Plan Summary: Rehydrate more and get levophed lower before extubation. Critical Time Critical Time (minutes): 35 Level of Care: ICU Anticipated discharge: Home with Homehealth Anticipated DC Timeframe: Other -: 1. The care of a critical patient is a dynamic process. This note is a labor service representative synopsis but static in nature. The timeframe for treatments given in order is not necessarily the actual time these treatments may have been done. 2. This patient requires critical care secondary to ongoing requirements for therapy not offered or safe outside the critical care environment. Transfer to a lower level of care will result in altered life or limb morbidity and mortality. 3. Multidisciplinary rounds completed. 4. ABCDE bundle addressed.
[2020-06-05] MEDS: FENTANYL CITRATE/PF 600 MCG/60 ML BAG IV PRN ×2 (09:43→21:02)
[2020-06-05] MEDS: ENOXAPARIN SODIUM INJ 30 MG/0.3 ML DISP.SYRIN SUBCUT SCH (09:44)
[2020-06-05] MEDS ORDERED: ENOXAPARIN SODIUM INJ 40 MG/0.4 ML DISP.SYRIN SUBCUT SCH (10:00)
--- NOTE | 2020-06-05 11:10 | PDOC PROGRESS REPORT ---
Subjective Date:: 06/05/20 Subjective:: Intubated and sedated Reason For Visit: PERFORATED CECUM Physical Exam Vital Signs: Temp Pulse Resp BP Pulse Ox 100.0 F 69 14 121/68 97 06/05/20 09:50 06/05/20 10:00 06/05/20 10:20 06/05/20 10:20 06/05/20 10:20 Intake & Output 06/04/20 06/05/20 06/06/20 06:59 06:59 06:59 Intake Total 87312 356 Output Total 45 Balance 17993 356 Weight 76.4 kg Exam: Intubated on Levophed. Abdomen is soft. Incision is clean and dry. Results Laboratory Results: 06/05/20 04:15 06/05/20 04:15 06/04/20 06/04/20 06/04/20 11:45 11:45 12:14 WBC 14.3 H RBC 3.76 Hgb 8.0 L Hct 28.0 L MCV 75 L MCH 21.3 L MCHC 28.6 L RDW 16.3 H Plt Count 912 H Seg Neutrophils % 85.7 H Carbonic Acid HCO3/H2CO3 Ratio ABG pH ABG pCO2 ABG pO2 ABG HCO3 ABG O2 Saturation ABG Base Excess FiO2 Sodium 128.9 L Potassium 4.4 Chloride 95 L Carbon Dioxide 27 Anion Gap 7 BUN 32 H Creatinine 2.18 H Est GFR ( Amer) 26 L Glucose 65 L Lactic Acid 4.6 H Calcium 11.4 H Total Bilirubin 0.5 AST 30 Alkaline Phosphatase 106 Total Protein 5.3 L Albumin 2.5 L Urine Color Urine Appearance Urine pH Ur Specific [place] Urine Protein Urine Glucose (UA) Urine Ketones Urine Blood Blood Type Antibody Screen 06/04/20 06/04/20 06/04/20 12:14 14:15 20:10 WBC RBC Hgb Hct MCV MCH MCHC RDW Plt Count Seg Neutrophils % Carbonic Acid 0.84 L HCO3/H2CO3 Ratio 22:1 ABG pH 7.44 ABG pCO2 28.0 L ABG pO2 107.9 H ABG HCO3 18.5 L ABG O2 Saturation 98.2 H ABG Base Excess -4.5 FiO2 60% Sodium Potassium Chloride Carbon Dioxide Anion Gap BUN Creatinine Est GFR ( Amer) Glucose Lactic Acid Calcium Total Bilirubin AST Alkaline Phosphatase Total Protein Albumin Urine Color YELLOW Urine Appearance CLOUDY Urine pH 5.0 Ur Specific [place] 1.017 Urine Protein 30 H Urine Glucose (UA) NEGATIVE Urine Ketones NEGATIVE Urine Blood NEGATIVE Blood Type B POSITIVE Antibody Screen NEGATIVE 06/04/20 06/04/20 06/05/20 22:00 22:00 04:15 WBC 14.9 H 16.5 H RBC 3.91 4.01 Hgb 9.6 L 9.8 L Hct 30.7 L 31.4 L MCV 79 L D 78 L MCH 24.6 L 24.4 L MCHC 31.3 L 31.1 L RDW 17.3 H 16.6 H Plt Count 597 H 599 H Seg Neutrophils % 88.5 H Carbonic Acid HCO3/H2CO3 Ratio ABG pH ABG pCO2 ABG pO2 ABG HCO3 ABG O2 Saturation ABG Base Excess FiO2 Sodium Potassium Chloride Carbon Dioxide Anion Gap BUN Creatinine Est GFR ( Amer) Glucose Lactic Acid 3.7 H Calcium Total Bilirubin AST Alkaline Phosphatase Total Protein Albumin Urine Color Urine Appearance Urine pH Ur Specific [place] Urine Protein Urine Glucose (UA) Urine Ketones Urine Blood Blood Type Antibody Screen 06/05/20 04:15 WBC RBC Hgb Hct MCV MCH MCHC RDW Plt Count Seg Neutrophils % Carbonic Acid HCO3/H2CO3 Ratio ABG pH ABG pCO2 ABG pO2 ABG HCO3 ABG O2 Saturation ABG Base Excess FiO2 Sodium 129.5 L Potassium 4.6 Chloride 104 Carbon Dioxide 21 L Anion Gap 5 BUN 29 H Creatinine 2.15 H Est GFR ( Amer) 27 L Glucose 119 H Lactic Acid Calcium 8.9 Total Bilirubin 1.5 H AST 30 Alkaline Phosphatase 47 Total Protein 3.9 L Albumin 2.0 L Urine Color Urine Appearance Urine pH Ur Specific [place] Urine Protein Urine Glucose (UA) Urine Ketones Urine Blood Blood Type Antibody Screen Impressions: Abdomen CT 06/04/20 11:42 IMPRESSION: See below IMPRESSION: 1. Large hiatal hernia containing the majority of the stomach which is within the RIGHT hemithorax, chronicity uncertain. There is evidence of a perforated viscus was large volume pneumoperitoneum. The point of perforation is not readily identifiable. Findings may be related to gastric volvulus secondary to large hiatal hernia although delineation of stomach anatomy is limited secondary to lack contrast and motion artifact. Additionally there is a questionable soft tissue mass in the region of the cecum with right pericolonic extraluminal gas. Small volume pelvic ascites, likely reactive. Recommend emergent surgical consultation. 2. Significant right lower lobe consolidation with small bilateral pleural effusion, possibly atelectasis or infection. 3. Multiple additional incidental findings as above. Findings discussed with Dr. Sheehan at 1333 hours on 06/04/2020. Chest CT 06/04/20 11:42 IMPRESSION: See below IMPRESSION: 1. Large hiatal hernia containing the majority of the stomach which is within the RIGHT hemithorax, chronicity uncertain. There is evidence of a perforated viscus was large volume pneumoperitoneum. The point of perforation is not readily identifiable. Findings may be related to gastric volvulus secondary to large hiatal hernia although delineation of stomach anatomy is limited secondary to lack contrast and motion artifact. Additionally there is a questionable soft tissue mass in the region of the cecum with right pericolonic extraluminal gas. Small volume pelvic ascites, likely reactive. Recommend emergent surgical consultation. 2. Significant right lower lobe consolidation with small bilateral pleural effusion, possibly atelectasis or infection. 3. Multiple additional incidental findings as above. Findings discussed with Dr. Sheehan at 1333 hours on 06/04/2020. Chest X-Ray 06/05/20 00:00 IMPRESSION: No pneumothorax following right IJ central line placement. Assessment & Plan - Diagnosis (1) Cecal perforation with cancer Is this a current diagnosis for this admission?: Yes (2) Dehydration Is this a current diagnosis for this admission?: Yes (3) Oliguria Is this a current diagnosis for this admission?: Yes - Time Anticipated Discharge Disposition: Home with Home Health Anticipated Discharge Timeframe: 1 week Critical Time spent with patient: 15-24 minutes - Inpatient Certification Medical Necessity: Need Close Monitoring Due to Risk of Patient Decompensation, Need For IV Fluids, Need for IV Antibiotics - Plan Summary Plan Summary: Postop day 1 post right hemicolectomy for perforated cecal carcinoma. Patient still on Levophed and intubated. Would likely keep her intubated another 24 hours until dpoke with the logistics supervisor Levophed is weaned. Continue ICU care
[2020-06-05] MEDS ORDERED: FUROSEMIDE INJ/PF 20 MG/2 ML SDV IV ONE (14:00)
--- NOTE | 2020-06-05 14:16 | RADIOLOGY REPORT (SQ) ---
EXAM DESCRIPTION: KUB/ABDOMEN (SINGLE VIEW) IMAGES COMPLETED DATE/TIME: 06/04/2020 7:12 pm REASON FOR STUDY: Check Placement of NG Tube COMPARISON: None. NUMBER OF VIEWS: One view. TECHNIQUE: Supine radiographic image of the abdomen acquired. LIMITATIONS: None. FINDINGS: Lower midline skin chelsea. Nasogastric tube tip overlying the stomach. Normal bowel gas pattern. IMPRESSION: Nasogastric tube in the stomach. TECHNICAL DOCUMENTATION: JOB ID: [id number] [email or web address]- All Rights Reserved Reading location - IP/workstation name: [email or web address]
[2020-06-05] MEDS ORDERED: RINGERS SOLUTION,LACTATED 1,000 ML IV PRN (17:31)
[2020-06-05] MEDS: FAMOTIDINE INJ/PF 20 MG/2 ML SDV IV SCH (21:03)
[2020-06-06] MEDS: DEXMEDETOMIDINE IN 0.9 % NACL 400 MCG/100 ML RTUPB IV PRN ×2 (03:14→17:28)
[2020-06-06] MEDS: DEXTROSE 5%-WATER 250 ML with NOREPINEPHRINE BITARTRATE 4 MG IV PRN ×4 (03:40→09:18)
[2020-06-06] MEDS: RINGERS SOLUTION,LACTATED 1,000 ML IV PRN ×3 (05:00→21:11)
[2020-06-06 05:36] LABS: ABSOLUTE EOSINOPHILS # (AUTO) 0.1 10^3/uL (0.0-0.6); ABSOLUTE LYMPHOCYTES (AUTO) 1.6 10^3/uL (0.5-4.7); ABSOLUTE MONOCYTES (AUTO) 0.3 10^3/uL (0.1-1.4); ABSOLUTE NEUT (AUTO) 13.3 10^3/uL (1.7-8.2); BASOPHILS % (AUTO) 0.1 % (0-2); EOSINOPHILS % (AUTO) 0.5 % (0-6); HEMATOCRIT 30.5 % (36.0-47.0); HEMOGLOBIN 9.4 g/dL (12.0-15.5); LYMPHOCYTES % (AUTO) 10.4 % (13-45); MEAN CORPUSCULAR HGB CONC 30.9 g/dL (32.0-36.0); MEAN CORPUSCULAR VOLUME 78 fl (80-97); MONOCYTES % (AUTO) 2.1 % (3-13); PLATELET COUNT 398 10^3/uL (150-450); RED BLOOD COUNT 3.93 10^6/uL (3.72-5.28); SEGMENTED NEUTROPHILS % (AUTO) 86.9 % (42-78); TOTAL CELLS COUNTED % (AUTO) 100 %; WHITE BLOOD COUNT 15.3 10^3/uL (4.0-10.5)
[2020-06-06 05:43] LABS: ANION GAP 7 (5-19); BLOOD UREA NITROGEN 29 mg/dL (7-20); CALCIUM 8.1 mg/dL (8.4-10.2); CARBON DIOXIDE 21 mmol/L (22-30); CHLORIDE 102 mmol/L (98-107); GLUCOSE 88 mg/dL (75-110); POTASSIUM 3.9 mmol/L (3.6-5.0)
[2020-06-06 06:11] LABS: ANISOCYTOSIS 1+; BURR CELLS 1+; SCHISTOCYTES SLIGHT; TARGET CELLS SLIGHT
[2020-06-06 06:12] LABS: PLATELET COMMENT ADEQUATE; POIKILOCYTOSIS 1+
[2020-06-06] MEDS: FENTANYL CITRATE/PF 600 MCG/60 ML BAG IV PRN (07:08)
[2020-06-06] MEDS: AMPICILLIN SODIUM/SULBACTAM NA 3 GM in NORMAL SALINE 100 ML IV SCH ×3 (07:14→21:10)
[2020-06-06] MEDS: ENOXAPARIN SODIUM INJ 30 MG/0.3 ML DISP.SYRIN SUBCUT SCH (09:19)
[2020-06-06] MEDS: DEXAMETHASONE SOD PHOSPHATE INJ 4 MG/1 ML VIAL IV SCH ×2 (10:10→17:24)
--- NOTE | 2020-06-06 10:17 | PDOC PROGRESS REPORT ---
Subjective Date:: 06/06/20 Subjective:: Still intubated and on Levophed Reason For Visit: PERFORATED CECUM Physical Exam Vital Signs: Temp Pulse Resp BP Pulse Ox 97.7 F 66 14 111/62 92 06/06/20 08:00 06/06/20 08:00 06/06/20 08:00 06/06/20 08:00 06/06/20 08:46 Intake & Output 06/05/20 06/06/20 06/07/20 06:59 06:59 06:59 Intake Total 61602 4196 248 Output Total 45 1070 135 Balance 62502 3126 113 Weight 76.4 kg 84.5 kg Exam: Abdomen is soft and the incision is clean and dry. No definite tenderness the patient still sedated and intubated Results Laboratory Results: 06/06/20 04:50 06/06/20 04:50 06/06/20 06/06/20 06/06/20 04:50 04:50 07:50 WBC 15.3 H RBC 3.93 Hgb 9.4 L Hct 30.5 L MCV 78 L MCH 24.0 L MCHC 30.9 L RDW 17.0 H Plt Count 398 Seg Neutrophils % 86.9 H Sodium 130.1 L Potassium 3.9 Chloride 102 Carbon Dioxide 21 L Anion Gap 7 BUN 29 H Creatinine 2.30 H Est GFR ( Amer) 25 L Glucose 88 Lactic Acid 0.9 Calcium 8.1 L 06/04/20 14:15 Catheterized Urine Urine Culture - Final Escherichia Coli Impressions: Abdomen CT 06/04/20 11:42 IMPRESSION: See below IMPRESSION: 1. Large hiatal hernia containing the majority of the stomach which is within the RIGHT hemithorax, chronicity uncertain. There is evidence of a perforated viscus was large volume pneumoperitoneum. The point of perforation is not readily identifiable. Findings may be related to gastric volvulus secondary to large hiatal hernia although delineation of stomach anatomy is limited secondary to lack contrast and motion artifact. Additionally there is a questionable soft tissue mass in the region of the cecum with right pericolonic extraluminal gas. Small volume pelvic ascites, likely reactive. Recommend emergent surgical consultation. 2. Significant right lower lobe consolidation with small bilateral pleural effusion, possibly atelectasis or infection. 3. Multiple additional incidental findings as above. Findings discussed with Dr. Sheehan at 1333 hours on 06/04/2020. Chest CT 06/04/20 11:42 IMPRESSION: See below IMPRESSION: 1. Large hiatal hernia containing the majority of the stomach which is within the RIGHT hemithorax, chronicity uncertain. There is evidence of a perforated viscus was large volume pneumoperitoneum. The point of perforation is not readily identifiable. Findings may be related to gastric volvulus secondary to large hiatal hernia although delineation of stomach anatomy is limited secondary to lack contrast and motion artifact. Additionally there is a questionable soft tissue mass in the region of the cecum with right pericolonic extraluminal gas. Small volume pelvic ascites, likely reactive. Recommend emergent surgical consultation. 2. Significant right lower lobe consolidation with small bilateral pleural effusion, possibly atelectasis or infection. 3. Multiple additional incidental findings as above. Findings discussed with Dr. Sheehan at 1333 hours on 06/04/2020. KUB X-Ray 06/04/20 18:25 IMPRESSION: Nasogastric tube in the stomach. Chest X-Ray 06/05/20 00:00 IMPRESSION: No pneumothorax following right IJ central line placement. Assessment & Plan - Diagnosis (1) Cecal perforation with cancer Is this a current diagnosis for this admission?: Yes (2) Dehydration Is this a current diagnosis for this admission?: Yes (3) Oliguria Is this a current diagnosis for this admission?: Yes - Time Anticipated Discharge Disposition: Home with Home Health Anticipated Discharge Timeframe: 1 to 2 wee Critical Time spent with patient: 15-24 minutes - Inpatient Certification Medical Necessity: Need Close Monitoring Due to Risk of Patient Decompensation, Need for IV Antibiotics - Plan Summary Plan Summary: 79-year-old female who underwent open right hemicolectomy for a perforated cecum with cancer. Postop day #2. Patient still intubated and on Levophed. Abdomen remains soft with incision clean and dry. Continue ICU care and IV antibiotics. Extubation per freight coordinator.
[2020-06-06] MEDS: ALBUMIN HUMAN 12.5 GM/50 ML RTUINJ IV SCH ×3 (20:12→23:10)
[2020-06-06] MEDS: FAMOTIDINE INJ/PF 20 MG/2 ML SDV IV SCH (21:10)
[2020-06-07] MEDS: DEXAMETHASONE SOD PHOSPHATE INJ 4 MG/1 ML VIAL IV SCH ×3 (01:24→17:05)
[2020-06-07] MEDS: ALBUMIN HUMAN 12.5 GM/50 ML RTUINJ IV SCH ×5 (01:25→20:39)
[2020-06-07] MEDS: RINGERS SOLUTION,LACTATED 1,000 ML IV PRN ×3 (04:23→23:54)
[2020-06-07] MEDS ORDERED: METOPROLOL TARTRATE PF/INJ 5 MG/5 ML SDV IV ONE ×2 (05:22→05:29)
[2020-06-07] MEDS: MORPHINE SULFATE 10 MG/ML INJ IV PRN (05:29)
[2020-06-07] MEDS: AMPICILLIN SODIUM/SULBACTAM NA 3 GM in NORMAL SALINE 100 ML IV SCH ×3 (05:30→21:31)
[2020-06-07 05:42] LABS: ABSOLUTE LYMPHOCYTES (AUTO) 0.6 10^3/uL (0.5-4.7); ABSOLUTE MONOCYTES (AUTO) 0.2 10^3/uL (0.1-1.4); BASOPHILS % (AUTO) 0.1 % (0-2); HEMOGLOBIN 8.2 g/dL (12.0-15.5); LYMPHOCYTES % (AUTO) 5.4 % (13-45); MEAN CORPUSCULAR HEMOGLOBIN 24.5 pg (27.0-33.4); MEAN CORPUSCULAR HGB CONC 31.6 g/dL (32.0-36.0); MEAN CORPUSCULAR VOLUME 77 fl (80-97); PLATELET COUNT 229 10^3/uL (150-450); RED BLOOD COUNT 3.36 10^6/uL (3.72-5.28); RED CELL DISTRIBUTION WIDTH 16.7 % (11.5-14.0); SEGMENTED NEUTROPHILS % (AUTO) 92.5 % (42-78); TOTAL CELLS COUNTED % (AUTO) 100 %; WHITE BLOOD COUNT 11.9 10^3/uL (4.0-10.5)
[2020-06-07 05:48] LABS: ANION GAP 9 (5-19); BLOOD UREA NITROGEN 29 mg/dL (7-20); CALCIUM 7.8 mg/dL (8.4-10.2); CARBON DIOXIDE 20 mmol/L (22-30); CHLORIDE 104 mmol/L (98-107); GLUCOSE 91 mg/dL (75-110); POTASSIUM 4.2 mmol/L (3.6-5.0)
[2020-06-07] MEDS: MAGNESIUM SULFATE/D5W 1 GM/100 ML RTUPB IV SCH ×2 (05:57→06:59)
[2020-06-07 06:32] LABS: ARTERIAL BLOOD H2CO3 1.36 mmol/L (1.05-1.35); ARTERIAL BLOOD O2 SATURATION 76.2 % (94-98); ARTERIAL BLOOD PCO2 45.2 mmHg (35-45); ARTERIAL BLOOD TOTAL CO2 17.4 mmol/L (21-25)
[2020-06-07 06:35] LABS: ARTERIAL BLOOD FIO2 35%; ARTERIAL BLOOD PH 7.17 (7.35-7.45)
[2020-06-07] MEDS ORDERED: SODIUM BICARBONATE 8.4% INJ 50 MEQ/50 ML DISP.SYRIN IV ONE (06:36)
[2020-06-07 07:01] LABS: CREATINE KINASE MB 1.44 ng/mL (<4.55)
[2020-06-07 07:03] LABS: TROPONIN I 1.11 ng/mL
[2020-06-07] MEDS: DEXTROSE 5%-WATER 250 ML with NOREPINEPHRINE BITARTRATE 4 MG IV PRN ×2 (08:41)
[2020-06-07] MEDS: DEXMEDETOMIDINE IN 0.9 % NACL 400 MCG/100 ML RTUPB IV PRN ×2 (08:42→20:53)
--- NOTE | 2020-06-07 08:55 | RADIOLOGY REPORT (SQ) ---
EXAM DESCRIPTION: CHEST SINGLE VIEW IMAGES COMPLETED DATE/TIME: 06/07/2020 8:40 am REASON FOR STUDY: Increased O2 requirements with no obvious source. COMPARISON: 06/05/2020 FINDINGS: One view chest AP portable semi upright. Endotracheal, nasogastric tubes and right IJ line remain in place. External artifacts are present. The nasogastric tube courses well to the right of midline consistent with a large hiatal hernia. There is worsening right basilar aeration which may be due to differences in technique. Progressing right pleural effusion may also be present. Diminished aeration left base as before. No pneumothorax. TECHNICAL DOCUMENTATION: JOB ID: [id number] Reading location - IP/workstation name: [email or web address]
[2020-06-07] MEDS: ENOXAPARIN SODIUM INJ 30 MG/0.3 ML DISP.SYRIN SUBCUT SCH (09:05)
--- NOTE | 2020-06-07 10:12 | PDOC PROGRESS REPORT ---
Subjective Date:: 06/07/20 Reason For Visit: PERFORATED CECUM Patient remains on Precedex intravenously, the ventilator, FiO2 90%, off the Levophed this morning, urine output diminished Physical Exam Vital Signs: Temp Pulse Resp BP Pulse Ox 98.6 F 90 15 118/60 96 06/07/20 10:00 06/07/20 08:00 06/07/20 10:01 06/07/20 10:01 06/07/20 10:01 Intake & Output 06/06/20 06/07/20 06/08/20 06:59 06:59 06:59 Intake Total 4196 4019 132 Output Total 1070 815 Balance 3126 3204 132 Weight 84.5 kg 90.5 kg General appearance: PRESENT: other - Guppy breathing GI/Abdominal exam: PRESENT: other - Abdomen not distended; original dressing removed; [place] intact; no drain Results Laboratory Results: 06/07/20 04:00 06/07/20 04:00 06/07/20 06/07/20 06/07/20 04:00 04:00 04:00 WBC 11.9 H RBC 3.36 L Hgb 8.2 L Hct 26.0 L MCV 77 L MCH 24.5 L MCHC 31.6 L RDW 16.7 H Plt Count 229 Seg Neutrophils % 92.5 H Carbonic Acid HCO3/H2CO3 Ratio ABG pH ABG pCO2 ABG pO2 ABG HCO3 ABG O2 Saturation ABG Base Excess FiO2 Sodium 132.7 L Potassium 4.2 Chloride 104 Carbon Dioxide 20 L Anion Gap 9 BUN 29 H Creatinine 2.25 H Est GFR ( Amer) 25 L Glucose 91 Lactic Acid Calcium 7.8 L Phosphorus 3.6 Magnesium 1.5 L 06/07/20 06/07/20 06:15 07:50 WBC RBC Hgb Hct MCV MCH MCHC RDW Plt Count Seg Neutrophils % Carbonic Acid 1.36 H HCO3/H2CO3 Ratio 11:1 ABG pH 7.17 L* ABG pCO2 45.2 H ABG pO2 51.0 L ABG HCO3 16.0 L ABG O2 Saturation 76.2 L ABG Base Excess -12.0 FiO2 35% Sodium Potassium Chloride Carbon Dioxide Anion Gap BUN Creatinine Est GFR ( Amer) Glucose Lactic Acid 1.4 Calcium Phosphorus Magnesium 06/04/20 14:15 Catheterized Urine Urine Culture - Final Escherichia Coli 06/07/20 06:15 CK-MB (CK-2) 1.44 Troponin I 1.110 Impressions: Abdomen CT 06/04/20 11:42 IMPRESSION: See below IMPRESSION: 1. Large hiatal hernia containing the majority of the stomach which is within the RIGHT hemithorax, chronicity uncertain. There is evidence of a perforated viscus was large volume pneumoperitoneum. The point of perforation is not readily identifiable. Findings may be related to gastric volvulus secondary to large hiatal hernia although delineation of stomach anatomy is limited secondary to lack contrast and motion artifact. Additionally there is a questionable soft tissue mass in the region of the cecum with right pericolonic extraluminal gas. Small volume pelvic ascites, likely reactive. Recommend emergent surgical consultation. 2. Significant right lower lobe consolidation with small bilateral pleural effusion, possibly atelectasis or infection. 3. Multiple additional incidental findings as above. Findings discussed with Dr. Sheehan at 1333 hours on 06/04/2020. Chest CT 06/04/20 11:42 IMPRESSION: See below IMPRESSION: 1. Large hiatal hernia containing the majority of the stomach which is within the RIGHT hemithorax, chronicity uncertain. There is evidence of a perforated viscus was large volume pneumoperitoneum. The point of perforation is not readily identifiable. Findings may be related to gastric volvulus secondary to large hiatal hernia although delineation of stomach anatomy is limited secondary to lack contrast and motion artifact. Additionally there is a questionable soft tissue mass in the region of the cecum with right pericolonic extraluminal gas. Small volume pelvic ascites, likely reactive. Recommend emergent surgical consultation. 2. Significant right lower lobe consolidation with small bilateral pleural effusion, possibly atelectasis or infection. 3. Multiple additional incidental findings as above. Findings discussed with Dr. Sheehan at 1333 hours on 06/04/2020. KUB X-Ray 06/04/20 18:25 IMPRESSION: Nasogastric tube in the stomach. Assessment & Plan - Diagnosis (1) Cecal perforation with cancer Is this a current diagnosis for this admission?: Yes Plan: Impression: Postoperative day 3 status post exploratory laparotomy, right hemicolectomy for perforated cecal carcinoma, ventilatory dependent, persisting metabolic acidosis. Prognosis extremely poor in this risk individual having undergone recent exploratory surgery, sepsis intervention with persisting hypoxemia Plan: 1. Intensive care support per Dr.Jairo continues. We acknowledged prognosis extremely grim 2. Appropriate discussion with family to take place as clinical condition unfolds. (2) Metabolic acidosis Is this a current diagnosis for this admission?: Yes (3) Dehydration Is this a current diagnosis for this admission?: Yes (4) Oliguria Is this a current diagnosis for this admission?: Yes - Time Anticipated Discharge Disposition: Home with Home Health Anticipated Discharge Timeframe: within 48 hours
--- NOTE | 2020-06-07 10:31 | PDOC CRITICAL CARE PROG REPORT ---
General Date:: 06/07/20 ICU Day:: 2 Ventilator Day:: 2 Hospital Day:: 2 Resuscitation Status: Full Code Events in the past 12 to 24 Hours:: Found to be on 90% FiO2. Acidotic to 7.17. Not ready for extubation. Review of systems relevant to events:: Pulmonary, GI. Reason for ICU Addmission:: Perforated abdominal viscus, SIRS/Sepsis. Now intubated and on levophed post op. - Medications: Medications reviewed and adjusted accordingly: Yes Vasopressors:: Levophed Sedation:: Precedex. Physical Exam Vital Signs: Temp Pulse Resp BP Pulse Ox 98.6 F 90 15 118/60 96 06/07/20 10:00 06/07/20 08:00 06/07/20 10:01 06/07/20 10:01 06/07/20 10:01 Intake & Output 06/06/20 06/07/20 06/08/20 06:59 06:59 06:59 Intake Total 4196 4019 132 Output Total 1070 815 Balance 3126 3204 132 Weight 84.5 kg 90.5 kg Weight/Height Weight 90.5 kg Height 5 ft 3 in General appearance: PRESENT: no acute distress Head exam: PRESENT: atraumatic, normocephalic Eye exam: PRESENT: conjunctiva pink, EOMI, PERRLA. ABSENT: scleral icterus Ear exam: PRESENT: normal external ear exam Mouth exam: PRESENT: moist, tongue midline Respiratory exam: PRESENT: clear to auscultation juan carlos. ABSENT: rales, rhonchi, wheezes Cardiovascular exam: PRESENT: RRR. ABSENT: diastolic murmur, rubs, systolic murmur GI/Abdominal exam: PRESENT: normal bowel sounds, soft, other - Incision, sterilly dressed.. ABSENT: distended, guarding, mass, organolmegaly, rebound, tenderness Rectal exam: PRESENT: deferred Gentrourinary exam: PRESENT: indwelling catheter Extremities exam: PRESENT: full ROM. ABSENT: calf tenderness, clubbing, pedal edema Musculoskeletal exam: PRESENT: normal inspection Neurological exam: PRESENT: altered, CN II-XII grossly intact - Sedated but some what arousable. Skin exam: PRESENT: dry, intact, warm. ABSENT: cyanosis, rash Tubes/Lines: PRESENT: Endotracheal Tube, Central Line, Arterial Catheter Laboratory/Radiographs Laboratory Results: 06/07/20 04:00 06/07/20 04:00 06/07/20 06/07/20 06/07/20 04:00 04:00 04:00 WBC 11.9 H RBC 3.36 L Hgb 8.2 L Hct 26.0 L MCV 77 L MCH 24.5 L MCHC 31.6 L RDW 16.7 H Plt Count 229 Seg Neutrophils % 92.5 H Carbonic Acid HCO3/H2CO3 Ratio ABG pH ABG pCO2 ABG pO2 ABG HCO3 ABG O2 Saturation ABG Base Excess FiO2 Sodium 132.7 L Potassium 4.2 Chloride 104 Carbon Dioxide 20 L Anion Gap 9 BUN 29 H Creatinine 2.25 H Est GFR ( Amer) 25 L Glucose 91 Lactic Acid Calcium 7.8 L Phosphorus 3.6 Magnesium 1.5 L 06/07/20 06/07/20 06:15 07:50 WBC RBC Hgb Hct MCV MCH MCHC RDW Plt Count Seg Neutrophils % Carbonic Acid 1.36 H HCO3/H2CO3 Ratio 11:1 ABG pH 7.17 L* ABG pCO2 45.2 H ABG pO2 51.0 L ABG HCO3 16.0 L ABG O2 Saturation 76.2 L ABG Base Excess -12.0 FiO2 35% Sodium Potassium Chloride Carbon Dioxide Anion Gap BUN Creatinine Est GFR ( Amer) Glucose Lactic Acid 1.4 Calcium Phosphorus Magnesium 06/04/20 14:15 Catheterized Urine Urine Culture - Final Escherichia Coli 06/07/20 06:15 CK-MB (CK-2) 1.44 Troponin I 1.110 Impressions: Abdomen CT 06/04/20 11:42 IMPRESSION: See below IMPRESSION: 1. Large hiatal hernia containing the majority of the stomach which is within the RIGHT hemithorax, chronicity uncertain. There is evidence of a perforated viscus was large volume pneumoperitoneum. The point of perforation is not readily identifiable. Findings may be related to gastric volvulus secondary to large hiatal hernia although delineation of stomach anatomy is limited secondary to lack contrast and motion artifact. Additionally there is a questionable soft tissue mass in the region of the cecum with right pericolonic extraluminal gas. Small volume pelvic ascites, likely reactive. Recommend emergent surgical consultation. 2. Significant right lower lobe consolidation with small bilateral pleural effusion, possibly atelectasis or infection. 3. Multiple additional incidental findings as above. Findings discussed with Dr. Sheehan at 1333 hours on 06/04/2020. Chest CT 06/04/20 11:42 IMPRESSION: See below IMPRESSION: 1. Large hiatal hernia containing the majority of the stomach which is within the RIGHT hemithorax, chronicity uncertain. There is evidence of a perforated viscus was large volume pneumoperitoneum. The point of perforation is not readily identifiable. Findings may be related to gastric volvulus secondary to large hiatal hernia although delineation of stomach anatomy is limited secondary to lack contrast and motion artifact. Additionally there is a questionable soft tissue mass in the region of the cecum with right pericolonic extraluminal gas. Small volume pelvic ascites, likely reactive. Recommend emergent surgical consultation. 2. Significant right lower lobe consolidation with small bilateral pleural effusion, possibly atelectasis or infection. 3. Multiple additional incidental findings as above. Findings discussed with Dr. Sheehan at 1333 hours on 06/04/2020. KUB X-Ray 06/04/20 18:25 IMPRESSION: Nasogastric tube in the stomach. All labs, radiographs, diagnostic studies and EKGs were personally reviewed: Yes In addition, reports of radiographic and diagnostic studies were read: Yes Assessment and Plan - Diagnosis (1) Cecal perforation with cancer Is this a current diagnosis for this admission?: Yes Plan: This is the working diagnosis. Pathology still pending further treatment such as CTx dependant on pathology. (2) Dehydration Is this a current diagnosis for this admission?: Yes Plan: Resolved (3) Oliguria Is this a current diagnosis for this admission?: Yes Plan: Largely resolved (4) Metabolic acidosis Is this a current diagnosis for this admission?: Yes Plan: Will check repeat lactic acid. Increase RR and recheck ABG Plan Summary: Need to normalize pH before we think about extubation. Critical Time Critical Time (minutes): 35 Level of Care: ICU Anticipated discharge: Home Anticipated DC Timeframe: Other -: 1. The care of a critical patient is a dynamic process. This note is a outside industrial sales representative synopsis but static in nature. The timeframe for treatments given in order is not necessarily the actual time these treatments may have been done. 2. This patient requires critical care secondary to ongoing requirements for therapy not offered or safe outside the critical care environment. Transfer to a lower level of care will result in altered life or limb morbidity and mortality. 3. Multidisciplinary rounds completed. 4. ABCDE bundle addressed.
--- NOTE | 2020-06-07 10:39 | PDOC CRITICAL CARE PROG REPORT ---
General Date:: 06/06/20 ICU Day:: 2 Ventilator Day:: 2 Hospital Day:: 2 Resuscitation Status: Full Code Events in the past 12 to 24 Hours:: Still on levophed but hope to extubate today. Review of systems relevant to events:: Pulmonary, GI. Reason for ICU Addmission:: Perforated abdominal viscus, SIRS/Sepsis. Now intubated and on levophed post op. - Medications: Medications reviewed and adjusted accordingly: Yes Vasopressors:: Levophed. Sedation:: Precedex Physical Exam Vital Signs: Temp Pulse Resp BP Pulse Ox 98.6 F 90 15 118/60 96 06/07/20 10:00 06/07/20 08:00 06/07/20 10:01 06/07/20 10:01 06/07/20 10:01 Intake & Output 06/06/20 06/07/20 06/08/20 06:59 06:59 06:59 Intake Total 4196 4019 132 Output Total 1070 815 Balance 3126 3204 132 Weight 84.5 kg 90.5 kg Weight/Height Weight 90.5 kg Height 5 ft 3 in General appearance: PRESENT: no acute distress Head exam: PRESENT: atraumatic, normocephalic Eye exam: PRESENT: conjunctiva pink, EOMI, PERRLA. ABSENT: scleral icterus Ear exam: PRESENT: normal external ear exam Mouth exam: PRESENT: moist, tongue midline Respiratory exam: PRESENT: clear to auscultation juan carlos. ABSENT: rales, rhonchi, wheezes Cardiovascular exam: PRESENT: RRR. ABSENT: diastolic murmur, rubs, systolic murmur GI/Abdominal exam: PRESENT: normal bowel sounds, soft, other - Incision dressed sterilly.. ABSENT: distended, guarding, mass, organolmegaly, rebound, tenderness Rectal exam: PRESENT: deferred Extremities exam: PRESENT: full ROM. ABSENT: calf tenderness, clubbing, pedal edema Musculoskeletal exam: PRESENT: normal inspection Neurological exam: PRESENT: altered, other - Sedated on precedex. Skin exam: PRESENT: dry, intact, warm. ABSENT: cyanosis, rash Tubes/Lines: PRESENT: Endotracheal Tube, Central Line, Nasogastic Tube Laboratory/Radiographs Laboratory Results: 06/07/20 04:00 06/07/20 04:00 12/06/1506/07/20 06/07/20 04:00 04:00 04:00 WBC 11.9 H RBC 3.36 L Hgb 8.2 L Hct 26.0 L MCV 77 L MCH 24.5 L MCHC 31.6 L RDW 16.7 H Plt Count 229 Seg Neutrophils % 92.5 H Carbonic Acid HCO3/H2CO3 Ratio ABG pH ABG pCO2 ABG pO2 ABG HCO3 ABG O2 Saturation ABG Base Excess FiO2 Sodium 132.7 L Potassium 4.2 Chloride 104 Carbon Dioxide 20 L Anion Gap 9 BUN 29 H Creatinine 2.25 H Est GFR ( Amer) 25 L Glucose 91 Lactic Acid Calcium 7.8 L Phosphorus 3.6 Magnesium 1.5 L 06/07/20 06/07/20 06:15 07:50 WBC RBC Hgb Hct MCV MCH MCHC RDW Plt Count Seg Neutrophils % Carbonic Acid 1.36 H HCO3/H2CO3 Ratio 11:1 ABG pH 7.17 L* ABG pCO2 45.2 H ABG pO2 51.0 L ABG HCO3 16.0 L ABG O2 Saturation 76.2 L ABG Base Excess -12.0 FiO2 35% Sodium Potassium Chloride Carbon Dioxide Anion Gap BUN Creatinine Est GFR ( Amer) Glucose Lactic Acid 1.4 Calcium Phosphorus Magnesium 06/04/20 14:15 Catheterized Urine Urine Culture - Final Escherichia Coli 06/07/20 06:15 CK-MB (CK-2) 1.44 Troponin I 1.110 Impressions: Abdomen CT 06/04/20 11:42 IMPRESSION: See below IMPRESSION: 1. Large hiatal hernia containing the majority of the stomach which is within the RIGHT hemithorax, chronicity uncertain. There is evidence of a perforated viscus was large volume pneumoperitoneum. The point of perforation is not readily identifiable. Findings may be related to gastric volvulus secondary to large hiatal hernia although delineation of stomach anatomy is limited secondary to lack contrast and motion artifact. Additionally there is a questionable soft tissue mass in the region of the cecum with right pericolonic extraluminal gas. Small volume pelvic ascites, likely reactive. Recommend emergent surgical consultation. 2. Significant right lower lobe consolidation with small bilateral pleural effusion, possibly atelectasis or infection. 3. Multiple additional incidental findings as above. Findings discussed with Dr. Sheehan at 1333 hours on 06/04/2020. Chest CT 06/04/20 11:42 IMPRESSION: See below IMPRESSION: 1. Large hiatal hernia containing the majority of the stomach w hich is within the RIGHT hemithorax, chronicity uncertain. There is evidence of a perforated viscus was large volume pneumoperitoneum. The point of perforation is not readily identifiable. Findings may be related to gastric volvulus secondary to large hiatal hernia although delineation of stomach anatomy is limited secondary to lack contrast and motion artifact. Additionally there is a questionable soft tissue mass in the region of the cecum with right pericolonic extraluminal gas. Small volume pelvic ascites, likely reactive. Recommend emergent surgical consultation. 2. Significant right lower lobe consolidation with small bilateral pleural effusion, possibly atelectasis or infection. 3. Multiple additional incidental findings as above. Findings discussed with Dr. Sheehan at 1333 hours on 06/04/2020. KUB X-Ray 06/04/20 18:25 IMPRESSION: Nasogastric tube in the stomach. EKG: ST, PVCs. All labs, radiographs, diagnostic studies and EKGs were personally reviewed: Yes In addition, reports of radiographic and diagnostic studies were read: Yes Assessment and Plan - Diagnosis (1) Cecal perforation with cancer Is this a current diagnosis for this admission?: Yes Plan: R hemicolectomy. Await pathology. (2) Dehydration Is this a current diagnosis for this admission?: Yes Plan: Resolved (3) Oliguria Is this a current diagnosis for this admission?: Yes Plan: Hope to improve when off levophed. Plan Summary: Hope to extubate later today. Critical Time Critical Time (minutes): 35 Level of Care: ICU Anticipated discharge: SNF Anticipated DC Timeframe: Other -: 1. The care of a critical patient is a dynamic process. This note is a sales representative livestock synopsis but static in nature. The timeframe for treatments given in order is not necessarily the actual time these treatments may have been done. 2. This patient requires critical care secondary to ongoing requirements for therapy not offered or safe outside the critical care environment. Transfer to a lower level of care will result in altered life or limb morbidity and mortality. 3. Multidisciplinary rounds completed. 4. ABCDE bundle addressed.
--- NOTE | 2020-06-07 14:56 | EKG REPORT ---
SEVERITY:- ABNORMAL ECG - SINUS RHYTHM VENTRICULAR PREMATURE COMPLEX LOW VOLTAGE THROUGHOUT BORDERLINE R WAVE PROGRESSION, ANTERIOR LEADS NONSPECIFIC T ABNORMALITIES, LATERAL LEADS : Confirmed by: Jose Boston 07-Jun-2020 14:55:25
[2020-06-07] MEDS ORDERED: RINGERS SOLUTION,LACTATED 1,000 ML IV PRN (15:15)
[2020-06-07] MEDS ORDERED: FUROSEMIDE INJ/PF 20 MG/2 ML SDV IV ONE (15:30)
[2020-06-07] MEDS ORDERED: BUMETANIDE INJ/PF 1 MG/4 ML SDV IV PRN (19:48)
[2020-06-07] MEDS: FAMOTIDINE INJ/PF 20 MG/2 ML SDV IV SCH (21:09)
[2020-06-07] MEDS: CEFTRIAXONE 2 GM/D5W RTU 2 GM/50 ML RTUPB IV SCH (21:09)
[2020-06-08] MEDS: DEXAMETHASONE SOD PHOSPHATE INJ 4 MG/1 ML VIAL IV SCH ×3 (01:29→17:38)
[2020-06-08 03:37] LABS: ABSOLUTE LYMPHOCYTES (AUTO) 0.7 10^3/uL (0.5-4.7); ABSOLUTE MONOCYTES (AUTO) 0.4 10^3/uL (0.1-1.4); ABSOLUTE NEUT (AUTO) 12.4 10^3/uL (1.7-8.2); BASOPHILS % (AUTO) 0.2 % (0-2); HEMATOCRIT 24.9 % (36.0-47.0); LYMPHOCYTES % (AUTO) 5.1 % (13-45); MEAN CORPUSCULAR HEMOGLOBIN 24.1 pg (27.0-33.4); MEAN CORPUSCULAR HGB CONC 31.3 g/dL (32.0-36.0); MEAN CORPUSCULAR VOLUME 77 fl (80-97); MONOCYTES % (AUTO) 3.3 % (3-13); PLATELET COUNT 207 10^3/uL (150-450); RED BLOOD COUNT 3.23 10^6/uL (3.72-5.28); RED CELL DISTRIBUTION WIDTH 17.4 % (11.5-14.0); SEGMENTED NEUTROPHILS % (AUTO) 91.4 % (42-78); TOTAL CELLS COUNTED % (AUTO) 100 %; WHITE BLOOD COUNT 13.6 10^3/uL (4.0-10.5)
[2020-06-08 03:41] LABS: HEMOGLOBIN 7.8 g/dL (12.0-15.5)
[2020-06-08 04:00] LABS: ANION GAP 11 (5-19); BLOOD UREA NITROGEN 38 mg/dL (7-20); CALCIUM 7.5 mg/dL (8.4-10.2); CARBON DIOXIDE 21 mmol/L (22-30); CHLORIDE 102 mmol/L (98-107); GLUCOSE 111 mg/dL (75-110)
[2020-06-08] MEDS: AMPICILLIN SODIUM/SULBACTAM NA 3 GM in NORMAL SALINE 100 ML IV SCH ×3 (05:19→21:20)
[2020-06-08 06:36] LABS: ARTERIAL BLOOD BASE EXCESS -4.5 mmol/L; ARTERIAL BLOOD H2CO3 0.73 mmol/L (1.05-1.35); ARTERIAL BLOOD O2 SATURATION 97.1 % (94-98); ARTERIAL BLOOD PCO2 24.4 mmHg (35-45); ARTERIAL BLOOD PH 7.49 (7.35-7.45); ARTERIAL BLOOD PO2 82.9 mmHg (80-100); ARTERIAL BLOOD TOTAL CO2 18.7 mmol/L (21-25)
[2020-06-08 06:48] LABS: ARTERIAL BLOOD FIO2 40%
[2020-06-08] MEDS: MORPHINE SULFATE 10 MG/ML INJ IV PRN (08:12)
--- NOTE | 2020-06-08 09:41 | PDOC PROGRESS REPORT ---
Subjective Date:: 06/08/20 Reason For Visit: PERFORATED CECUM Patient remains on the ventilator, FiO2 of 40; off Levophed. Now following simple commands. Physical Exam Vital Signs: Temp Pulse Resp BP Pulse Ox 98.8 F 120 H 32 H 124/64 98 06/08/20 08:00 06/08/20 08:00 06/08/20 08:00 06/08/20 08:00 06/08/20 08:00 Intake & Output 06/07/20 06/08/20 06/09/20 06:59 06:59 06:59 Intake Total 4019 2491 Output Total 815 540 100 Balance 3204 1951 -100 Weight 90.5 kg 90 kg General appearance: PRESENT: mild distress GI/Abdominal exam: PRESENT: other - Abdomen leaking of serous fluid from between [place]; abdomen otherwise fairly soft. Results Laboratory Results: 06/08/20 03:25 06/08/20 03:25 06/08/20 06/08/20 06/08/20 03:25 03:25 03:25 WBC 13.6 H RBC 3.23 L Hgb 7.8 L Hct 24.9 L MCV 77 L MCH 24.1 L MCHC 31.3 L RDW 17.4 H Plt Count 207 Seg Neutrophils % 91.4 H Carbonic Acid HCO3/H2CO3 Ratio ABG pH ABG pCO2 ABG pO2 ABG HCO3 ABG O2 Saturation ABG Base Excess FiO2 Sodium 134.3 L Potassium 4.0 Chloride 102 Carbon Dioxide 21 L Anion Gap 11 BUN 38 H Creatinine 2.35 H Est GFR ( Amer) 24 L Glucose 111 H Calcium 7.5 L Magnesium 1.9 Albumin 06/08/20 06/08/20 03:25 06:27 WBC RBC Hgb Hct MCV MCH MCHC RDW Plt Count Seg Neutrophils % Carbonic Acid 0.73 L HCO3/H2CO3 Ratio 24:1 ABG pH 7.49 H ABG pCO2 24.4 L ABG pO2 82.9 ABG HCO3 18.0 L ABG O2 Saturation 97.1 ABG Base Excess -4.5 FiO2 40% Sodium Potassium Chloride Carbon Dioxide Anion Gap BUN Creatinine Est GFR ( Amer) Glucose Calcium Magnesium Albumin 2.2 L 06/07/20 06/07/20 06/07/20 06:15 10:52 17:07 CK-MB (CK-2) 1.44 Troponin I 1.110 1.080 0.929 Impressions: Abdomen CT 06/04/20 11:42 IMPRESSION: See below IMPRESSION: 1. Large hiatal hernia containing the majority of the stomach whic h is within the RIGHT hemithorax, chronicity uncertain. There is evidence of a perforated viscus was large volume pneumoperitoneum. The point of perforation is not readily identifiable. Findings may be related to gastric volvulus secondary to large hiatal hernia although delineation of stomach anatomy is limited secondary to lack contrast and motion artifact. Additionally there is a questionable soft tissue mass in the region of the cecum with right pericolonic extraluminal gas. Small volume pelvic ascites, likely reactive. Recommend emergent surgical consultation. 2. Significant right lower lobe consolidation with small bilateral pleural effusion, possibly atelectasis or infection. 3. Multiple additional incidental findings as above. Findings discussed with Dr. Sheehan at 1333 hours on 06/04/2020. Chest CT 06/04/20 11:42 IMPRESSION: See below IMPRESSION: 1. Large hiatal hernia containing the majority of the stomach which is within the RIGHT hemithorax, chronicity uncertain. There is evidence of a perforated viscus was large volume pneumoperitoneum. The point of perforation is not readily identifiable. Findings may be related to gastric volvulus secondary to large hiatal hernia although delineation of stomach anatomy is limited secondary to lack contrast and motion artifact. Additionally there is a questionable soft tissue mass in the region of the cecum with right pericolonic extraluminal gas. Small volume pelvic ascites, likely reactive. Recommend emergent surgical consultation. 2. Significant right lower lobe consolidation with small bilateral pleural effusion, possibly atelectasis or infection. 3. Multiple additional incidental findings as above. Findings discussed with Dr. Sheehan at 1333 hours on 06/04/2020. KUB X-Ray 06/04/20 18:25 IMPRESSION: Nasogastric tube in the stomach. Assessment & Plan - Diagnosis (1) Cecal perforation with cancer Is this a current diagnosis for this admission?: Yes Plan: Impression: Patient is postoperative day 4 status post exploratory laparotomy, right hemicolectomy, primary anastomosis, no drain, with low suspicion for ongoing sepsis; acidosis stabilizing; overall hemodynamically stable, hypoxemia improved. Plan: 1. Discussed care with Dr. Roque; will anticipate extubation. Of note patient remains a full code 2. Discussed we will drainage from midline wound; encourage nurses to replace abdominal wall dressings on a as needed basis. 3. We will continue to follow patient closely with you. (2) Metabolic acidosis Is this a current diagnosis for this admission?: Yes (3) Dehydration Is this a current diagnosis for this admission?: Yes (4) Oliguria Is this a current diagnosis for this admission?: Yes - Time Anticipated Discharge Disposition: Home, Self Care Anticipated Discharge Timeframe: Be determi
[2020-06-08] MEDS ORDERED: IPRATROPIUM/ALBUTEROL 0.5-2.5 MG/3 ML AMPUL NEB PRN (10:48)
[2020-06-08] MEDS ORDERED: IPRATROPIUM/ALBUTEROL 0.5-2.5 MG/3 ML AMPUL NEB ONE (10:52)
[2020-06-08] MEDS: ENOXAPARIN SODIUM INJ 30 MG/0.3 ML DISP.SYRIN SUBCUT SCH (11:08)
--- NOTE | 2020-06-08 11:33 | PDOC CRITICAL CARE PROG REPORT ---
General Date:: 06/08/20 ICU Day:: 4 Hospital Day:: 4 Resuscitation Status: Full Code Events in the past 12 to 24 Hours:: Still on levophed but hope to extubate today. 06/08: Extubated this AM. Review of systems relevant to events:: Pulmonary, GI. Reason for ICU Addmission:: Perforated abdominal viscus, SIRS/Sepsis. Now intubated and on levophed post op. - Medications: Medications reviewed and adjusted accordingly: Yes Vasopressors:: None Sedation:: None. Physical Exam Vital Signs: Temp Pulse Resp BP Pulse Ox 98.8 F 122 H 29 H 142/80 H 98 06/08/20 08:00 06/08/20 10:00 06/08/20 10:00 06/08/20 10:00 06/08/20 10:00 Intake & Output 06/07/20 06/08/20 06/09/20 06:59 06:59 06:59 Intake Total 4019 2491 Output Total 815 540 150 Balance 3204 1951 -150 Weight 90.5 kg 90 kg Weight/Height Weight 90 kg Height 5 ft 3 in General appearance: PRESENT: no acute distress Head exam: PRESENT: atraumatic, normocephalic Eye exam: PRESENT: conjunctiva pink, EOMI, PERRLA. ABSENT: scleral icterus Ear exam: PRESENT: normal external ear exam Mouth exam: PRESENT: moist, tongue midline Respiratory exam: PRESENT: accessory muscle use, clear to auscultation juan carlos, wheezes - Mild wheezing. ABSENT: rales, rhonchi Cardiovascular exam: PRESENT: RRR, tachycardia. ABSENT: diastolic murmur, rubs, systolic murmur GI/Abdominal exam: PRESENT: normal bowel sounds, soft, other - Incision clean b ut has been draining serous fluid.. ABSENT: distended, guarding, mass, organolmegaly, rebound, tenderness Rectal exam: PRESENT: deferred Extremities exam: PRESENT: full ROM. ABSENT: calf tenderness, clubbing, pedal edema Musculoskeletal exam: PRESENT: normal inspection Neurological exam: PRESENT: altered, CN II-XII grossly intact, other - She had been answering simple questions. Skin exam: PRESENT: dry, intact, warm. ABSENT: cyanosis, rash Tubes/Lines: PRESENT: Central Line Laboratory/Radiographs Laboratory Results: 06/08/20 03:25 06/08/20 03:25 06/08/20 06/08/20 06/08/20 03:25 03:25 03:25 WBC 13.6 H RBC 3.23 L Hgb 7.8 L Hct 24.9 L MCV 77 L MCH 24.1 L MCHC 31.3 L RDW 17.4 H Plt Count 207 Seg Neutrophils % 91.4 H Carbonic Acid HCO3/H2CO3 Ratio ABG pH ABG pCO2 ABG pO2 ABG HCO3 ABG O2 Saturation ABG Base Excess FiO2 Sodium 134.3 L Potassium 4.0 Chloride 102 Carbon Dioxide 21 L Anion Gap 11 BUN 38 H Creatinine 2.35 H Est GFR ( Amer) 24 L Glucose 111 H Calcium 7.5 L Magnesium 1.9 Albumin 06/08/20 06/08/20 03:25 06:27 WBC RBC Hgb Hct MCV MCH MCHC RDW Plt Count Seg Neutrophils % Carbonic Acid 0.73 L HCO3/H2CO3 Ratio 24:1 ABG pH 7.49 H ABG pCO2 24.4 L ABG pO2 82.9 ABG HCO3 18.0 L ABG O2 Saturation 97.1 ABG Base Excess -4.5 FiO2 40% Sodium Potassium Chloride Carbon Dioxide Anion Gap BUN Creatinine Est GFR ( Amer) Glucose Calcium Magnesium Albumin 2.2 L 06/07/20 06/07/20 06/07/20 06:15 10:52 17:07 CK-MB (CK-2) 1.44 Troponin I 1.110 1.080 0.929 Impressions: Abdomen CT 06/04/20 11:42 IMPRESSION: See below IMPRESSION: 1. Large hiatal hernia containing the majority of the stomach which is within the RIGHT hemithorax, chronicity uncertain. There is evidence of a perforated viscus was large volume pneumoperitoneum. The point of perforation is not readily identifiable. Findings may be related to gastric volvulus secondary to large hiatal hernia although delineation of stomach anatomy is limited secondary to lack contrast and motion artifact. Additionally there is a questionable soft tissue mass in the region of the cecum with right pericolonic extraluminal gas. Small volume pelvic ascites, likely reactive. Recommend emergent surgical consultation. 2. Significant right lower lobe consolidation with small bilateral pleural effusion, possibly atelectasis or infection. 3. Multiple additional incidental findings as above. Findings discussed with Dr. Sheehan at 1333 hours on 06/04/2020. Chest CT 06/04/20 11:42 IMPRESSION: See below IMPRESSION: 1. Large hiatal hernia containing the majority of the stomach which is within the RIGHT hemithorax, chronicity uncertain. There is evidence of a perforated viscus was large volume pneumoperitoneum. The point of perforation is not readily identifiable. Findings may be related to gastric volvulus secondary to large hiatal hernia although delineation of stomach anatomy is limited secondary to lack contrast and motion artifact. Additionally there is a questionable soft tissue mass in the region of the cecum with right pericolonic extraluminal gas. Small volume pelvic ascites, likely reactive. Recommend emergent surgical consultation. 2. Significant right lower lobe consolidation with small bilateral pleural effusion, possibly atelectasis or infection. 3. Multiple additional incidental findings as above. Findings discussed with Dr. Sheehan at 1333 hours on 06/04/2020. KUB X-Ray 06/04/20 18:25 IMPRESSION: Nasogastric tube in the stomach. EKG: Sinus tachycardia with some PVCs. All labs, radiographs, diagnostic studies and EKGs were personally reviewed: Yes In addition, reports of radiographic and diagnostic studies were read: Yes Assessment and Plan - Diagnosis (1) Cecal perforation with cancer Is this a current diagnosis for this admission?: Yes Plan: Resolved with surgery. (2) Dehydration Is this a current diagnosis for this admission?: Yes Plan: Resolved. (3) Oliguria Is this a current diagnosis for this admission?: Yes Plan: Resolved. Plan Summary: This patient has been recently extubated. She appears to be in need of some respiratory support due to weakness. Bipap in place. Critical Time Critical Time (minutes): 35 Level of Care: ICU Anticipated discharge: SNF Anticipated DC Timeframe: Other -: 1. The care of a critical patient is a dynamic process. This note is a disability representative synopsis but static in nature. The timeframe for treatments give n in order is not necessarily the actual time these treatments may have been done. 2. This patient requires critical care secondary to ongoing requirements for therapy not offered or safe outside the critical care environment. Transfer to a lower level of care will result in altered life or limb morbidity and mortality. 3. Multidisciplinary rounds completed. 4. ABCDE bundle addressed.
[2020-06-08] MEDS: CEFTRIAXONE 2 GM/D5W RTU 2 GM/50 ML RTUPB IV SCH (21:20)
[2020-06-08] MEDS: FAMOTIDINE INJ/PF 20 MG/2 ML SDV IV SCH (21:20)
[2020-06-09] MEDS: RINGERS SOLUTION,LACTATED 1,000 ML IV PRN ×2 (00:13→21:05)
[2020-06-09] MEDS: DEXAMETHASONE SOD PHOSPHATE INJ 4 MG/1 ML VIAL IV SCH ×3 (01:59→17:19)
[2020-06-09] MEDS: MORPHINE SULFATE 10 MG/ML INJ IV PRN ×2 (01:59→06:45)
[2020-06-09] MEDS ORDERED: MAGNESIUM SULFATE/D5W 2 GM/200 ML RTUPB IV ONE (03:38)
[2020-06-09] MEDS ORDERED: NORMAL SALINE 1000 ML 500 ML IV PRN (04:29)
[2020-06-09] MEDS: MAGNESIUM SULFATE/D5W 1 GM/100 ML RTUPB IV SCH ×2 (04:29→05:28)
[2020-06-09] MEDS ORDERED: BUMETANIDE INJ/PF 1 MG/4 ML SDV IV ONE (05:00)
[2020-06-09 05:13] LABS: ANION GAP 15 (5-19); BLOOD UREA NITROGEN 45 mg/dL (7-20); CALCIUM 7.3 mg/dL (8.4-10.2); CARBON DIOXIDE 16 mmol/L (22-30); CHLORIDE 103 mmol/L (98-107); GLUCOSE 162 mg/dL (75-110)
[2020-06-09] MEDS ORDERED: AMIODARONE HCL INJ 150 MG/3 ML VIAL IV ONE (05:15)
[2020-06-09 05:17] LABS: HEMATOCRIT 31.7 % (36.0-47.0); MEAN CORPUSCULAR HEMOGLOBIN 24.3 pg (27.0-33.4); MEAN CORPUSCULAR HGB CONC 31.5 g/dL (32.0-36.0); MEAN CORPUSCULAR VOLUME 77 fl (80-97); PLATELET COUNT 259 10^3/uL (150-450); RED BLOOD COUNT 4.11 10^6/uL (3.72-5.28); RED CELL DISTRIBUTION WIDTH 18.4 % (11.5-14.0); WHITE BLOOD COUNT 25.9 10^3/uL (4.0-10.5)
[2020-06-09] MEDS ORDERED: DEXTROSE 5%-WATER 500 ML with AMIODARONE HCL 900 MG IV PRN ×2 (05:18)
[2020-06-09] MEDS ORDERED: METOPROLOL TARTRATE PF/INJ 5 MG/5 ML SDV IV ONE ×2 (05:24→06:11)
[2020-06-09] MEDS: AMPICILLIN SODIUM/SULBACTAM NA 3 GM in NORMAL SALINE 100 ML IV SCH ×3 (05:33→21:04)
[2020-06-09 05:41] LABS: ABSOLUTE LYMPHOCYTES# (MANUAL) 0.5 10^3/uL (0.5-4.7); ABSOLUTE MONOCYTES # (MANUAL) 1.6 10^3/uL (0.1-1.4); BASOPHILS % (MANUAL) 0 % (0-2); EOSINOPHILS % (MANUAL) 0 % (0-6); LYMPHOCYTES % (MANUAL) 2 % (13-45); MONOCYTES % (MANUAL) 6 % (3-13); NUCLEATED RED BLOOD CELLS 1 /100 WBC (0); SEGMENTED NEUTROPHILS % (MAN) 92 % (42-78); TOTAL CELLS COUNTED 100
[2020-06-09 05:43] LABS: ANISOCYTOSIS 2+; BURR CELLS 2+; HELMET CELLS SLIGHT; OVALOCYTES 1+; PLATELET COMMENT ADEQUATE; POIKILOCYTOSIS 1+; SCHISTOCYTES 1+; TOXIC GRANULATION SLIGHT
--- NOTE | 2020-06-09 07:50 | EKG REPORT ---
SEVERITY:- ABNORMAL ECG - SINUS RHYTHM ANTERIOR INFARCT, AGE INDETERMINATE LOW VOLTAGE QRS : Confirmed by: Jose Boston 09-Jun-2020 07:49:40
--- NOTE | 2020-06-09 07:54 | PDOC PROGRESS REPORT ---
Subjective Date:: 06/09/20 Subjective:: feels well, min pain Reason For Visit: PERFORATED CECUM Physical Exam Vital Signs: Temp Pulse Resp BP Pulse Ox 99.0 F 118 H 25 H 111/87 H 92 06/09/20 05:12 06/08/20 19:00 06/09/20 06:00 06/09/20 06:00 06/09/20 06:00 Intake & Output 06/08/20 06/09/20 06/10/20 06:59 06:59 06:59 Intake Total 2491 1390 Output Total 540 385 Balance 195 1005 Weight 90 kg 86 kg General appearance: PRESENT: no acute distress Head exam: PRESENT: normocephalic Eye exam: PRESENT: EOMI Ear exam: PRESENT: normal external ear exam Mouth exam: PRESENT: moist Neck exam: PRESENT: full ROM Respiratory exam: PRESENT: clear to auscultation juan carlos Cardiovascular exam: PRESENT: RRR Pulses: PRESENT: normal radial pulses, normal femoral pulses Breast: PRESENT: Normal GI/Abdominal exam: PRESENT: soft Rectal exam: PRESENT: deferred Gentrourinary exam: PRESENT: other - [place] Musculoskeletal exam: PRESENT: full ROM, other - left upper inner thigh with 6cm wound open, granulating, clean bed sl distal small wound min thigh with tere drain exit, min drainage. pack removed Skin exam: PRESENT: dry Results Laboratory Results: 06/09/20 04:40 06/09/20 04:40 06/08/20 06/09/20 06/09/20 03:25 04:40 04:40 WBC 25.9 H RBC 4.11 Hgb 10.0 L D Hct 31.7 L MCV 77 L MCH 24.3 L MCHC 31.5 L RDW 18.4 H Plt Count 259 Seg Neutrophils % Not Reportable Sodium 133.7 L Potassium 4.0 Chloride 103 Carbon Dioxide 16 L Anion Gap 15 BUN 45 H Creatinine 2.61 H Est GFR ( Amer) 21 L Glucose 162 H Calcium 7.3 L Magnesium Albumin 2.2 L 06/09/20 04:40 WBC RBC Hgb Hct MCV MCH MCHC RDW Plt Count Seg Neutrophils % Sodium Potassium Chloride Carbon Dioxide Anion Gap BUN Creatinine Est GFR ( Amer) Glucose Calcium Magnesium 2.7 H Albumin 06/07/20 06/07/20 06/07/20 06:15 10:52 17:07 CK-MB (CK-2) 1.44 Troponin I 1.110 1.080 0.929 Impressions: Abdomen CT 06/04/20 11:42 IMPRESSION: See below IMPRESSION: 1. Large hiatal hernia containing the majority of the stomach which is within the RIGHT hemithorax, chronicity uncertain. There is evidence of a perforated viscus was large volume pneumoperitoneum. The point of perforation is not readily identifiable. Findings may be related to gastric volvulus secondary to large hiatal hernia although delineation of stomach anatomy is limited secondary to lack contrast and motion artifact. Additionally there is a questionable soft tissue mass in the region of the cecum with right pericolonic extraluminal gas. Small volume pelvic ascites, likely reactive. Recommend emergent surgical consultation. 2. Significant right lower lobe consolidation with small bilateral pleural effusion, possibly atelectasis or infection. 3. Multiple additional incidental findings as above. Findings discussed with Dr. Sheehan at 1333 hours on 06/04/2020. Chest CT 06/04/20 11:42 IMPRESSION: See below IMPRESSION: 1. Large hiatal hernia containing the majority of the stomach which is within the RIGHT hemithorax, chronicity uncertain. There is evidence of a perforated viscus was large volume pneumoperitoneum. The point of perf oration is not readily identifiable. Findings may be related to gastric volvulus secondary to large hiatal hernia although delineation of stomach anatomy is limited secondary to lack contrast and motion artifact. Additionally there is a questionable soft tissue mass in the region of the cecum with right pericolonic extraluminal gas. Small volume pelvic ascites, likely reactive. Recommend emergent surgical consultation. 2. Significant right lower lobe consolidation with small bilateral pleural effusion, possibly atelectasis or infection. 3. Multiple additional incidental findings as above. Findings discussed with Dr. Sheehan at 1333 hours on 06/04/2020. KUB X-Ray 06/04/20 18:25 IMPRESSION: Nasogastric tube in the stomach. Assessment & Plan - Time Anticipated Discharge Disposition: Home, Self Care Anticipated Discharge Timeframe: within 48 hours - Plan Summary Plan Summary: s/p i and d of thigh abscess cults pending + blood cults for clostridia on abx surgical wound clean would proceed with wet to dry dressing changes once a day with saline soaked gauze ok from surgery standpt for discharge home on daily dressing changes home health ?? pt can f/u iwth DR Martínez in 1 wk after dc for drain management surgery will sign off at this time reconsult if needed.
[2020-06-09] MEDS: ENOXAPARIN SODIUM INJ 30 MG/0.3 ML DISP.SYRIN SUBCUT SCH (11:40)
[2020-06-09 12:39] LABS: APPEARANCE,URINE SLIGHTLY-CLOUDY; BILIRUBIN,URINE NEGATIVE (NEGATIVE); COLOR,URINE YELLOW; GLUCOSE, URINE NEGATIVE (NEGATIVE); KETONES,URINE TRACE mg/dL (NEGATIVE); LEUKOCYTE ESTERASE,URINE SMALL (NEGATIVE); NITRITE,URINE NEGATIVE (NEGATIVE); PROTEIN,URINE NEGATIVE (NEGATIVE); URINE SPECIFIC GRAVITY 1.017; UROBILINOGEN,URINE NEGATIVE mg/dL (<2.0)
[2020-06-09 13:06] LABS: APPEARANCE,URINE SLIGHTLY-CLOUDY; BILIRUBIN,URINE NEGATIVE (NEGATIVE); COLOR,URINE YELLOW; GLUCOSE, URINE 150 mg/dL (NEGATIVE); KETONES,URINE TRACE mg/dL (NEGATIVE); LEUKOCYTE ESTERASE,URINE MODERATE (NEGATIVE); NITRITE,URINE NEGATIVE (NEGATIVE); PROTEIN,URINE >=500 mg/dL (NEGATIVE); UROBILINOGEN,URINE NEGATIVE mg/dL (<2.0)
[2020-06-09] MEDS: ALBUMIN HUMAN 12.5 GM/50 ML RTUINJ IV SCH ×2 (16:21→16:38)
[2020-06-09] MEDS ORDERED: FUROSEMIDE INJ/PF 40 MG/4 ML SDV IV ONE (16:30)
[2020-06-09] MEDS: NYSTATIN TOPICAL POWDER 15 GM TP SCH (18:18)
[2020-06-09] MEDS ORDERED: ADENOSINE INJ/PF 6 MG/2 ML SDV IV ONE (18:53)
--- NOTE | 2020-06-09 19:10 | EKG REPORT ---
SEVERITY:- ABNORMAL ECG - SUPRAVENTRICULAR TACHYCARDIA VENTRICULAR PREMATURE COMPLEX LOW VOLTAGE IN FRONTAL LEADS CONSIDER ANTEROSEPTAL INFARCT BORDERLINE T ABNORMALITIES, LATERAL LEADS : Confirmed by: Zee Walker MD 09-Jun-2020 19:09:04
--- NOTE | 2020-06-09 19:30 | PDOC CRITICAL CARE PROG REPORT ---
General Date:: 06/09/20 ICU Day:: 5 Hospital Day:: 5 Resuscitation Status: Full Code Events in the past 12 to 24 Hours:: Still on levophed but hope to extubate today. 06/08: Extubated this AM. 06/09: Remains extubated. On nasal cannula. Off norepinephrine. WBC 25.9 this AM. On Unasyn (per surgery) and Rocephin. E. coli (pansensitive) isolated from urine (06/04). Review of systems relevant to events:: Pulmonary, GI. Reason for ICU Addmission:: Perforated abdominal viscus, SIRS/Sepsis. Now intubated and on levophed post op. - Medications: Medications reviewed and adjusted accordingly: Yes Vasopressors:: None Physical Exam Vital Signs: Temp Pulse Resp BP Pulse Ox 99.0 F 118 H 25 H 111/87 H 92 06/09/20 05:12 06/08/20 19:00 06/09/20 06:00 06/09/20 06:00 06/09/20 06:00 Intake & Output 06/08/20 06/09/20 06/10/20 06:59 06:59 06:59 Intake Total 2491 1390 Output Total 540 385 Balance 1951 1005 Weight 90 kg 86 kg Weight/Height Weight 86 kg Height 1.6 m General appearance: PRESENT: no acute distress, morbidly obese, well-developed, well-nourished Head exam: PRESENT: atraumatic, normocephalic Eye exam: PRESENT: conjunctiva pink, EOMI, PERRLA. ABSENT: scleral icterus Mouth exam: PRESENT: dry mucosa, tongue midline Neck exam: ABSENT: carotid bruit, JVD, lymphadenopathy, thyromegaly Respiratory exam: PRESENT: crackles - Bibasilar, decreased breath sounds. ABSENT: rales, rhonchi, wheezes Cardiovascular exam: PRESENT: RRR. ABSENT: diastolic murmur, rubs, systolic murmur Pulses: PRESENT: normal dorsalis pedis pul GI/Abdominal exam: PRESENT: hypoactive bowel sounds, soft, tenderness - Right > left. ABSENT: distended, guarding, mass, organolmegaly, rebound Gentrourinary exam: PRESENT: indwelling catheter Extremities exam: PRESENT: full ROM, pedal edema, +2 edema. ABSENT: calf tenderness, clubbing Musculoskeletal exam: PRESENT: normal inspection. ABSENT: deformity Neurological exam: PRESENT: alert, awake, oriented to person, oriented to place, oriented to time, oriented to situation, CN II-XII grossly intact. ABSENT: motor sensory deficit Psychiatric exam: PRESENT: appropriate affect. ABSENT: agitated, anxious Skin exam: PRESENT: other - Surgical incision site bandaged with drain in situ. Copious clear yellow serous drainage. Laboratory/Radiographs Laboratory Results: 06/09/20 04:40 06/09/20 04:40 06/08/20 06/09/20 06/09/20 03:25 04:40 04:40 WBC 25.9 H RBC 4.11 Hgb 10.0 L D Hct 31.7 L MCV 77 L MCH 24.3 L MCHC 31.5 L RDW 18.4 H Plt Count 259 Seg Neutrophils % Not Reportable Sodium 133.7 L Potassium 4.0 Chloride 103 Carbon Dioxide 16 L Anion Gap 15 BUN 45 H Creatinine 2.61 H Est GFR ( Amer) 21 L Glucose 162 H Calcium 7.3 L Magnesium Albumin 2.2 L 06/09/20 04:40 WBC RBC Hgb Hct MCV MCH MCHC RDW Plt Count Seg Neutrophils % Sodium Potassium Chloride Carbon Dioxide Anion Gap BUN Creatinine Est GFR ( Amer) Glucose Calcium Magnesium 2.7 H Albumin 06/07/20 06/07/20 06/07/20 06:15 10:52 17:07 CK-MB (CK-2) 1.44 Troponin I 1.110 1.080 0.929 Impressions: Abdomen CT 06/04/20 11:42 IMPRESSION: See below IMPRESSION: 1. Large hiatal hernia containing the majority of the stomach which is within the RIGHT hemithorax, chronicity uncertain. There is evidence of a perforated viscus was large volume pneumoperitoneum. The point of perforation is not readily identifiable. Findings may be related to gastric volvulus secondary to large hiatal hernia although delineation of stomach anatomy is limited secondary to lack contrast and motion artifact. Additionally there is a questionable soft tissue mass in the region of the cecum with right pericolonic extraluminal gas. Small volume pelvic ascites, likely reactive. Recommend emergent surgical consultation. 2. Significant right lower lobe consolidation with small bilateral pleural effusion, possibly atelectasis or infection. 3. Multiple additional incidental findings as above. Findings discussed with Dr. Sheehan at 1333 hours on 06/04/2020. Chest CT 06/04/20 11:42 IMPRESSION: See below IMPRESSION: 1. Large hiatal hernia containing the majority of the stomach which is within the RIGHT hemithorax, chronicity uncertain. There is evidence of a perforated viscus was large volume pneumoperitoneum. The point of perforation is not readily identifiable. Findings may be related to gastric volvulus secondary to large hiatal hernia although delineation of stomach anatomy is limited secondary to lack contrast and motion artifact. Additionally there is a questionable soft tissue mass in the region of the cecum with right pericolonic extraluminal gas. Small volume pelvic ascites, likely reactive. Recommend emergent surgical consultation. 2. Significant right lower lobe consolidation with small bilateral pleural effusion, possibly atelectasis or infection. 3. Multiple additional incidental findings as above. Findings discussed with Dr. Sheehan at 1333 hours on 06/04/2020. KUB X-Ray 06/04/20 18:25 IMPRESSION: Nasogastric tube in the stomach. All labs, radiographs, diagnostic studies and EKGs were personally reviewed: Yes In addition, reports of radiographic and diagnostic studies were read: Yes Assessment and Plan - Diagnosis (1) Shock Is this a current diagnosis for this admission?: Yes Plan: * Resolved. * Septic shock with a likely component of hypovolemic shock, worsened by third spacing of fluids (postoperative state, hypoalbuminemia). * Albumin 25 mg IV followed by furosemide 40 mg IV single dose. Monitor urine output and blood pressure. (2) Cecal perforation with cancer Is this a current diagnosis for this admission?: Yes (3) E. coli UTI Is this a current diagnosis for this admission?: Yes Plan: * Continue Unasyn. * Stop Rocephin. (4) Oliguria Is this a current diagnosis for this admission?: Yes (5) Dehydration Is this a current diagnosis for this admission?: Yes Plan: Resolved. Critical Time Critical Time (minutes): 45 Level of Care: ICU -: 1. The care of a critical patient is a dynamic process. This note is a off premise service representative synopsis but static in nature. The timeframe for treatments given in order is not necessarily the actual time these treatments may have been done. 2. This patient requires critical care secondary to ongoing requirements for therapy not offered or safe outside the critical care environment. Transfer to a lower level of care will result in altered life or limb morbidity and mortality. 3. Multidisciplinary rounds completed. 4. ABCDE bundle addressed.
[2020-06-09 20:00] LABS: ANION GAP 13 (5-19); BLOOD UREA NITROGEN 53 mg/dL (7-20); CALCIUM 7.7 mg/dL (8.4-10.2); CARBON DIOXIDE 19 mmol/L (22-30); CHLORIDE 102 mmol/L (98-107); GLUCOSE 147 mg/dL (75-110); POTASSIUM 4.3 mmol/L (3.6-5.0)
[2020-06-09] MEDS: FAMOTIDINE INJ/PF 20 MG/2 ML SDV IV SCH (21:05)
[2020-06-09] MEDS: METOPROLOL TARTRATE PF/INJ 5 MG/5 ML SDV IV SCH (21:55)
[2020-06-10] MEDS: DEXAMETHASONE SOD PHOSPHATE INJ 4 MG/1 ML VIAL IV SCH ×3 (02:30→17:10)
[2020-06-10] MEDS ORDERED: METOPROLOL TARTRATE PF/INJ 5 MG/5 ML SDV IV ONE ×4 (03:12→03:20)
[2020-06-10 05:58] LABS: HEMATOCRIT 30.2 % (36.0-47.0); HEMOGLOBIN 9.1 g/dL (12.0-15.5); MEAN CORPUSCULAR HEMOGLOBIN 23.2 pg (27.0-33.4); MEAN CORPUSCULAR VOLUME 77 fl (80-97); PLATELET COUNT 215 10^3/uL (150-450); RED CELL DISTRIBUTION WIDTH 18.6 % (11.5-14.0); WHITE BLOOD COUNT 19.2 10^3/uL (4.0-10.5)
[2020-06-10 06:01] LABS: ANION GAP 12 (5-19); BLOOD UREA NITROGEN 54 mg/dL (7-20); CALCIUM 7.5 mg/dL (8.4-10.2); CARBON DIOXIDE 21 mmol/L (22-30); CHLORIDE 104 mmol/L (98-107); GLUCOSE 140 mg/dL (75-110); PHOSPHORUS 4.5 mg/dL (2.5-4.5); POTASSIUM 4.3 mmol/L (3.6-5.0)
[2020-06-10 06:09] LABS: PREALBUMIN 6.7 mg/dL (17.6-36.0)
[2020-06-10 06:30] LABS: ABSOLUTE MONOCYTES # (MANUAL) 1.3 10^3/uL (0.1-1.4); BASOPHILS % (MANUAL) 0 % (0-2); EOSINOPHILS % (MANUAL) 0 % (0-6); LYMPHOCYTES % (MANUAL) 5 % (13-45); MONOCYTES % (MANUAL) 7 % (3-13); SEGMENTED NEUTROPHILS % (MAN) 88 % (42-78); TOTAL CELLS COUNTED 100
[2020-06-10 06:31] LABS: ANISOCYTOSIS 1+; HYPOCHROMASIA SLIGHT; PLATELET CLUMPS PRESENT; PLATELET COMMENT ADEQUATE
[2020-06-10] MEDS: AMPICILLIN SODIUM/SULBACTAM NA 3 GM in NORMAL SALINE 100 ML IV SCH ×3 (06:59→22:14)
--- NOTE | 2020-06-10 09:43 | RADIOLOGY REPORT (SQ) ---
EXAM DESCRIPTION: CHEST SINGLE VIEW IMAGES COMPLETED DATE/TIME: 06/10/2020 6:11 am REASON FOR STUDY: Septic , intubated COMPARISON: CT chest 06/04/2020 Chest films 06/05/2020, 06/07/2020 EXAM PARAMETERS: NUMBER OF VIEWS: One view. TECHNIQUE: Single frontal radiographic view of the chest acquired. RADIATION DOSE: NA LIMITATIONS: None. FINDINGS: LUNGS AND PLEURA: On the right side, there is hazy opacity over the right lower chest like ly due to a small right pleural effusion. No right pneumothorax. No gross dense consolidation right lung. On the left side, there is opacification of the lower left hemithorax with air bronchograms from left lower lobe collapse/consolidation. Trace left pleural effusion could not be excluded. No gross lef t pneumothorax. MEDIASTINUM AND HILAR STRUCTURES: Patient has an intrathoracic stomach to the right of the spine on C T 06/04/2020 within a large retrocardiac hernia. On today's study, there is an air bubble over the rig ht lower hemithorax which is within the stomach. HEART AND VASCULAR STRUCTURES: Heart normal in size. Normal vasculature. BONES: No acute findings. HARDWARE: Right jugular central line tip right atrium. Endotracheal tube, nasogastric tube and been removed. OTHER: There is subdiaphragmatic free air outlining the dome of liver in the right upper quadrant. IMPRESSION: Small bilateral pleural effusions Left lower lobe collapse/ consolidation Free intraperitoneal air TECHNICAL DOCUMENTATION: JOB ID: [id number] 2010 [employer]- All Rights Reserved Reading location - IP/workstation name: [email or web address]
[2020-06-10] MEDS: ENOXAPARIN SODIUM INJ 30 MG/0.3 ML DISP.SYRIN SUBCUT SCH (09:55)
[2020-06-10] MEDS: METOPROLOL TARTRATE PF/INJ 5 MG/5 ML SDV IV SCH ×5 (09:55→22:35)
[2020-06-10] MEDS: NYSTATIN TOPICAL POWDER 15 GM TP SCH ×2 (09:56→17:10)
--- NOTE | 2020-06-10 12:29 | PDOC PROGRESS REPORT ---
Subjective Date:: 06/10/20 Subjective:: States that she feels okay. Reason For Visit: PERFORATED CECUM Physical Exam Vital Signs: Temp Pulse Resp BP Pulse Ox 98.2 F 72 24 H 133/88 H 99 06/10/20 10:00 06/10/20 10:00 06/10/20 12:00 06/10/20 10:03 06/10/20 12:00 Intake & Output 06/09/20 06/10/20 06/11/20 06:59 06:59 06:59 Intake Total 1390 2000 Output Total 385 1585 385 Balance 1005 416 -385 Weight 86 kg 89.1 kg General appearance: PRESENT: no acute distress, cooperative Respiratory exam: PRESENT: clear to auscultation juan carlos Cardiovascular exam: PRESENT: RRR GI/Abdominal exam: PRESENT: other - Soft, nondistended, minimal abdominal tenderness. Patient has lower portion of her wound open with serous drainage. I probed the wound with my finger and I could not discern a gross fascial defect. Results Laboratory Results: 06/10/20 04:10 06/10/20 04:10 06/09/20 06/09/20 06/09/20 12:00 12:43 19:09 WBC RBC Hgb Hct MCV MCH MCHC RDW Plt Count Seg Neutrophils % Sodium 134.0 L Potassium 4.3 Chloride 102 Carbon Dioxide 19 L Anion Gap 13 BUN 53 H Creatinine 2.71 H Est GFR ( Amer) 20 L Glucose 147 H Calcium 7.7 L Phosphorus Magnesium 2.5 H Prealbumin Urine Color YELLOW YELLOW Urine Appearance SLIGHTLY-CLOUDY SLIGHTLY-CLOUDY Urine pH 5.0 8.0 Ur Specific [place] 1.017 1.010 Urine Protein NEGATIVE >=500 H Urine Glucose (UA) NEGATIVE 150 H Urine Ketones TRACE H TRACE H Urine Blood SMALL H LARGE H Urine Nitrite NEGATIVE NEGATIVE Ur Leukocyte Esterase SMALL H MODERATE H Urine WBC (Auto) 7 116 Urine RBC (Auto) 15 >182 06/10/20 06/10/20 04:10 04:10 WBC 19.2 H RBC 3.90 Hgb 9.1 L Hct 30.2 L MCV 77 L MCH 23.2 L MCHC 30.0 L RDW 18.6 H Plt Count 215 Seg Neutrophils % Not Reportable Sodium 137.2 Potassium 4.3 Chloride 104 Carbon Dioxide 21 L Anion Gap 12 BUN 54 H Creatinine 2.78 H Est GFR ( Amer) 20 L Glucose 140 H Calcium 7.5 L Phosphorus 4.5 Magnesium 2.4 H Prealbumin 6.7 L Urine Color Urine Appearance Urine pH Ur Specific [place] Urine Protein Urine Glucose (UA) Urine Ketones Urine Blood Urine Nitrite Ur Leukocyte Esterase Urine WBC (Auto) Urine RBC (Auto) 06/04/20 13:50 Blood Blood Culture - Final NO GROWTH IN 5 DAYS 06/04/20 12:14 Blood Blood Culture - Final NO GROWTH IN 5 DAYS 06/07/20 06/07/20 06/07/20 06:15 10:52 17:07 CK-MB (CK-2) 1.44 Troponin I 1.110 1.080 0.929 Impressions: Abdomen CT 06/04/20 11:42 IMPRESSION: See below IMPRESSION: 1. Large hiatal hernia containing the majority of the stomach which is within the RIGHT hemithorax, chronicity uncertain. There is evidence of a perforated viscus was large volume pneumoperitoneum. The point of perforation is not readily identifiable. Findings may be related to gastric volvulus secondary to large hiatal hernia although delineation of stomach anatomy is limited secondary to lack contrast and motion artifact. Additionally there is a questionable soft tissue mass in the region of the cecum with right pericolonic extraluminal gas. Small volume pelvic ascites, likely reactive. Recommend emergent surgical consultation. 2. Significant right lower lobe consolidation with small bilateral pleural effusion, possibly atelectasis or infection. 3. Multiple additional incidental findings as above. Findings discussed with Dr. Sheehan at 1333 hours on 06/04/2020. Chest CT 06/04/20 11:42 IMPRESSION: See below IMPRESSION: 1. Large hiatal hernia containing the majority of the stomach which is within the RIGHT hemithorax, chronicity uncertain. There is evidence of a perforated viscus was large volume pneumoperitoneum. The point of perforat ion is not readily identifiable. Findings may be related to gastric volvulus secondary to large hiatal hernia although delineation of stomach anatomy is limited secondary to lack contrast and motion artifact. Additionally there is a questionable soft tissue mass in the region of the cecum with right pericolonic extraluminal gas. Small volume pelvic ascites, likely reactive. Recommend emergent surgical consultation. 2. Significant right lower lobe consolidation with small bilateral pleural e ffusion, possibly atelectasis or infection. 3. Multiple additional incidental findings as above. Findings discussed with Dr. Sheehan at 1333 hours on 06/04/2020. KUB X-Ray 06/04/20 18:25 IMPRESSION: Nasogastric tube in the stomach. Chest X-Ray 06/10/20 04:00 IMPRESSION: Small bilateral pleural effusions Left lower lobe collapse/ consolidation Free intraperitoneal air Assessment & Plan - Diagnosis (1) Cecal perforation with cancer Is this a current diagnosis for this admission?: Yes Plan: Status post partial colon resection. Continue supportive therapy. (2) Wound drainage Is this a current diagnosis for this admission?: Yes Plan: Concerning for dehiscence but no palpable fascial defect on digital palpation. Will keep close observation. Patient currently on bedrest. - Time Anticipated Discharge Disposition: Intermediate Care Facility Anticipated Discharge Timeframe: week
[2020-06-10] MEDS: ALBUMIN HUMAN 12.5 GM/50 ML RTUINJ IV SCH ×2 (12:48→13:58)
[2020-06-10] MEDS ORDERED: FUROSEMIDE INJ/PF 100 MG/10 ML SDV IV ONE ×2 (13:00→16:00)
[2020-06-10] MEDS: MORPHINE SULFATE 10 MG/ML INJ IV PRN (14:22)
--- NOTE | 2020-06-10 18:53 | PDOC CRITICAL CARE PROG REPORT ---
General Date:: 06/10/20 ICU Day:: 6 Hospital Day:: 6 Resuscitation Status: Full Code Events in the past 12 to 24 Hours:: Still on levophed but hope to extubate today. 06/08: Extubated this AM. 06/09: Remains extubated. On nasal cannula. Off norepinephrine. WBC 25.9 this AM. On Unasyn (per surgery) and Rocephin. E. coli (pansensitive) isolated from urine (06/04). 06/10: ERRATUM: Yesterday's documentation that the patient was on nasal cannula was incorrect. She was on BiPAP at the time of examination. Had a run of SVT, heart rate 180s to 190s. This was effectively treated with adenosine 6 mg IV single dose. 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 This was addressed with Lopressor 2.5 mg IV. Today, on BiPAP, FiO2 45%. Awake, alert. Mildly disoriented. Family has suspicion of underlying baseline dementia. Continues to have copious clear serous drainage from incisional wound. WBC 25.9>19.2. Creatinine 2.8. She is on Unasyn for perioperative antibiotic prophylaxis (possible abdominal sepsis) and treatment of E. coli UTI. Review of systems relevant to events:: Pulmonary, GI. Reason for ICU Addmission:: Perforated abdominal viscus, SIRS/Sepsis. Now intubated and on levophed post op. - Medications: Medications reviewed and adjusted accordingly: Yes Vasopressors:: None Physical Exam Vital Signs: Temp Pulse Resp BP Pulse Ox 97.9 F 72 19 128/58 H 100 06/10/20 12:00 06/10/20 12:00 06/10/20 14:00 06/10/20 13:32 06/10/20 14:00 Intake & Output 06/09/20 06/10/20 06/11/20 06:59 06:59 06:59 Intake Total 1390 2001 0 Output Total 385 1585 425 Balance 1005 416 -425 Weight 86 kg 89.1 kg Weight/Height Weight 89.1 kg Height 1.6 m General appearance: PRESENT: no acute distress, morbidly obese, well-developed, well-nourished Head exam: PRESENT: atraumatic, normocephalic Eye exam: PRESENT: conjunctiva pink, EOMI, PERRLA. ABSENT: scleral icterus Mouth exam: PRESENT: dry mucosa, tongue midline Neck exam: ABSENT: carotid bruit, JVD, lymphadenopathy, thyromegaly Respiratory exam: PRESENT: decreased breath sounds. ABSENT: rales, rhonchi, wheezes Cardiovascular exam: PRESENT: RRR, tachycardia. ABSENT: diastolic murmur, rubs, systolic murmur GI/Abdominal exam: PRESENT: hypoactive bowel sounds, soft, tenderness, other - Abdominal wound with clear yellow serous drainage. ABSENT: distended, guarding, mass, organolmegaly, rebound Gentrourinary exam: PRESENT: indwelling catheter Extremities exam: PRESENT: full ROM, pedal edema, +2 edema. ABSENT: calf tenderness, clubbing Musculoskeletal exam: PRESENT: normal inspection. ABSENT: deformity Neurological exam: PRESENT: alert, awake, oriented to person, oriented to place, reflexes normal, CN II-XII grossly intact. ABSENT: motor sensory deficit Psychiatric exam: ABSENT: agitated, anxious Skin exam: PRESENT: dry, intact, warm. ABSENT: cyanosis, rash Laboratory/Radiographs Laboratory Results: 06/10/20 04:10 06/10/20 04:10 06/09/20 06/10/20 06/10/20 19:09 04:10 04:10 WBC 19.2 H RBC 3.90 Hgb 9.1 L Hct 30.2 L MCV 77 L MCH 23.2 L MCHC 30.0 L RDW 18.6 H Plt Count 215 Seg Neutrophils % Not Reportable Sodium 134.0 L 137.2 Potassium 4.3 4.3 Chloride 102 104 Carbon Dioxide 19 L 21 L Anion Gap 13 12 BUN 53 H 54 H Creatinine 2.71 H 2.78 H Est GFR ( Amer) 20 L 20 L Glucose 147 H 140 H Calcium 7.7 L 7.5 L Phosphorus 4.5 Magnesium 2.5 H 2.4 H Prealbumin 6.7 L 06/04/20 13:50 Blood Blood Culture - Final NO GROWTH IN 5 DAYS 06/04/20 12:14 Blood Blood Culture - Final NO GROWTH IN 5 DAYS 06/07/20 06/07/20 06/07/20 06:15 10:52 17:07 CK-MB (CK-2) 1.44 Troponin I 1.110 1.080 0.929 Impressions: Abdomen CT 06/04/20 11:42 IMPRESSION: See below IMPRESSION: 1. Large hiatal hernia containing the majority of the stomach which is within the RIGHT hemithorax, chronicity uncertain. There is evidence of a perforated viscus was large volume pneumoperitoneum. The point of perf oration is not readily identifiable. Findings may be related to gastric volvulus secondary to large hiatal hernia although delineation of stomach anatomy is limited secondary to lack contrast and motion artifact. Additionally there is a questionable soft tissue mass in the region of the cecum with right pericolonic extraluminal gas. Small volume pelvic ascites, likely reactive. Recommend emergent surgical consultation. 2. Significant right lower lobe consolidation with small bilateral pleural effusion, possibly atelectasis or infection. 3. Multiple additional incidental findings as above. Findings discussed with Dr. Sheehan at 1333 hours on 06/04/2020. Chest CT 06/04/20 11:42 IMPRESSION: See below IMPRESSION: 1. Large hiatal hernia containing the majority of the stomach which is within the RIGHT hemithorax, chronicity uncertain. There is evidence of a perforated viscus was large volume pneumoperitoneum. The point of perforation is not readily identifiable. Findings may be related to gastric volvulus secondary to large hiatal hernia although delineation of stomach anatomy is limited secondary to lack contrast and motion artifact. Additionally there is a questionable soft tissue mass in the region of the cecum with right pericolonic extraluminal gas. Small volume pelvic ascites, likely reactive. Recommend emergent surgical consultation. 2. Significant right lower lobe consolidation with small bilateral pleural effusion, possibly atelectasis or infection. 3. Multiple additional incidental findings as above. Findings discussed with Dr. Sheehan at 1333 hours on 06/04/2020. KUB X-Ray 06/04/20 18:25 IMPRESSION: Nasogastric tube in the stomach. Chest X-Ray 06/10/20 04:00 IMPRESSION: Small bilateral pleural effusions Left lower lobe collapse/ consolidation Free intraperitoneal air All labs, radiographs, diagnostic studies and EKGs were personally reviewed: Yes In addition, reports of radiographic and diagnostic studies were read: Yes Assessment and Plan - Diagnosis (1) Shock Is this a current diagnosis for this admission?: Yes Plan: * Resolved. * Septic shock with a likely component of hypovolemic shock, worsened by third spacing of fluids (postoperative state, hypoalbuminemia). * Albumin 25 mg IV followed by furosemide 80 mg IV single dose. Monitor urine output and blood pressure. (2) Cecal perforation with cancer Is this a current diagnosis for this admission?: Yes Plan: * Status post partial colon resection. Continue supportive therapy. * Need to optimize postoperative pain control. The patient needs to be able to engage in incentive spirometry. (3) E. coli UTI Is this a current diagnosis for this admission?: Yes Plan: * Continue Unasyn. (4) Oliguria Is this a current diagnosis for this admission?: Yes (5) Dehydration Is this a current diagnosis for this admission?: Yes Critical Time Critical Time (minutes): 60 Level of Care: ICU -: 1. The care of a critical patient is a dynamic process. This note is a software support representative synopsis but static in nature. The timeframe for treatments given in order is not necessarily the actual time these treatments may have been done. 2. This patient requires critical care secondary to ongoing requirements for therapy not offered or safe outside the critical care environment. Transfer to a lower level of care will result in altered life or limb morbidity and mortality. 3. Multidisciplinary rounds completed. 4. ABCDE bundle addressed.
[2020-06-10] MEDS ORDERED: FENTANYL CITRATE INJ/PF 100 MCG/2 ML AMPUL ONE (20:03)
[2020-06-10] MEDS ORDERED: FENTANYL CITRATE INJ/PF 100 MCG/2 ML AMPUL IV ONE (20:30)
[2020-06-10] MEDS: FAMOTIDINE INJ/PF 20 MG/2 ML SDV IV SCH (22:14)
[2020-06-11] MEDS: MORPHINE SULFATE 10 MG/ML INJ IV PRN ×2 (01:45→23:20)
[2020-06-11] MEDS: DEXAMETHASONE SOD PHOSPHATE INJ 4 MG/1 ML VIAL IV SCH ×3 (02:48→18:22)
[2020-06-11] MEDS: AMPICILLIN SODIUM/SULBACTAM NA 3 GM in NORMAL SALINE 100 ML IV SCH ×3 (05:20→22:33)
[2020-06-11 05:22] LABS: HEMATOCRIT 32.9 % (36.0-47.0); HEMOGLOBIN 10.3 g/dL (12.0-15.5); MEAN CORPUSCULAR HEMOGLOBIN 24.3 pg (27.0-33.4); MEAN CORPUSCULAR HGB CONC 31.2 g/dL (32.0-36.0); MEAN CORPUSCULAR VOLUME 78 fl (80-97); RED BLOOD COUNT 4.23 10^6/uL (3.72-5.28); RED CELL DISTRIBUTION WIDTH 18.1 % (11.5-14.0); WHITE BLOOD COUNT 18.7 10^3/uL (4.0-10.5)
[2020-06-11] MEDS: METOPROLOL TARTRATE PF/INJ 5 MG/5 ML SDV IV SCH ×4 (05:24→18:22)
[2020-06-11 05:31] LABS: ANION GAP 15 (5-19); BLOOD UREA NITROGEN 62 mg/dL (7-20); CALCIUM 7.6 mg/dL (8.4-10.2); CARBON DIOXIDE 19 mmol/L (22-30); CHLORIDE 105 mmol/L (98-107); PHOSPHORUS 4.6 mg/dL (2.5-4.5)
[2020-06-11 05:38] LABS: GLUCOSE 143 mg/dL (75-110)
[2020-06-11 05:55] LABS: ABSOLUTE LYMPHOCYTES# (MANUAL) 1.1 10^3/uL (0.5-4.7); ABSOLUTE MONOCYTES # (MANUAL) 0.2 10^3/uL (0.1-1.4); BASOPHILS % (MANUAL) 0 % (0-2); EOSINOPHILS % (MANUAL) 0 % (0-6); LYMPHOCYTES % (MANUAL) 6 % (13-45); MONOCYTES % (MANUAL) 1 % (3-13); SEGMENTED NEUTROPHILS % (MAN) 93 % (42-78); TOTAL CELLS COUNTED 100
[2020-06-11 05:57] LABS: ANISOCYTOSIS 1+; BURR CELLS SLIGHT; HYPOCHROMASIA 1+; PLATELET COMMENT ADEQUATE; POIKILOCYTOSIS 1+; SCHISTOCYTES SLIGHT; TARGET CELLS SLIGHT; TEAR DROP CELLS SLIGHT
[2020-06-11 05:58] LABS: PLATELET CLUMPS PRESENT; PLATELET COUNT 232 10^3/uL (150-450)
[2020-06-11] MEDS: ENOXAPARIN SODIUM INJ 30 MG/0.3 ML DISP.SYRIN SUBCUT SCH (09:53)
[2020-06-11] MEDS: NYSTATIN TOPICAL POWDER 15 GM TP SCH ×2 (09:53→18:21)
--- NOTE | 2020-06-11 12:39 | Progress Note ---
Provider Note Provider Note: Hematology/Oncology consult was received. I was able to see patient and speak with her briefly today, but have not yet met with family. I also discussed her care with surgery and with ICU nurses and six horse hitch driver. She presented with acute abdominal pain and underwent surgery for perforated colon. 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 Although the distal and proximal ends are clear, there was perforation, so surgical margins cannot be fully assessed. 07/15 LN was positive, so this is at least at Stage III. I would like to discuss all of this with the patient and family after she has recovered from the surgery a bit more. She may be a candidate for further chemotherapy, but staging studies would be recommended prior to this. Due to all the inflammation prior to surgery, I don't believe the prior CTs are able to fully address stage of the cancer. These new studies should wait until patient is out of the hospital. If she is able to recover with a good performance status, then chemotherapy should be considered. Dr. Campos will be covering for me over the next week, but I would like to see her again about 2 weeks after her discharge from hospital. I will arrange.
[2020-06-11 13:01] LABS: ARTERIAL BLOOD BASE EXCESS -7.1 mmol/L; ARTERIAL BLOOD FIO2 28%; ARTERIAL BLOOD H2CO3 1.02 mmol/L (1.05-1.35); ARTERIAL BLOOD HCO3 17.8 mmol/L (20-24); ARTERIAL BLOOD O2 SATURATION 91.3 % (94-98); ARTERIAL BLOOD PCO2 33.9 mmHg (35-45); ARTERIAL BLOOD PH 7.34 (7.35-7.45); ARTERIAL BLOOD PO2 63.6 mmHg (80-100); ARTERIAL BLOOD TOTAL CO2 18.9 mmol/L (21-25)
[2020-06-11] MEDS ORDERED: METOPROLOL TARTRATE PF/INJ 5 MG/5 ML SDV IV ONE (14:14)
[2020-06-11] MEDS: NORMAL SALINE 1000 ML 1,000 ML IV PRN ×2 (14:23→23:20)
[2020-06-11] MEDS ORDERED: DIGOXIN INJ 0.5 MG/2 ML AMPULE IV ONE (14:33)
[2020-06-11] MEDS ORDERED: DEXTROSE 5%-WATER 250 ML with PHENYLEPHRINE HCL 40 MG IV PRN ×2 (15:25)
[2020-06-11] MEDS: ALBUMIN HUMAN 12.5 GM/50 ML RTUINJ IV SCH ×3 (15:38→18:21)
--- NOTE | 2020-06-11 17:21 | PDOC PROGRESS REPORT ---
Subjective Date:: 06/11/20 Subjective:: awake alert Reason For Visit: PERFORATED CECUM Physical Exam Vital Signs: Temp Pulse Resp BP Pulse Ox 98.4 F 75 10 L 122/93 H 93 06/11/20 10:00 06/11/20 08:51 06/11/20 17:15 06/11/20 16:45 06/11/20 17:15 Intake & Output 06/10/20 06/11/20 06/12/20 06:59 06:59 06:59 Intake Total 2000 100 85 Output Total 1585 1400 265 Balance 416 1300 -180 Weight 89.1 kg 86 kg General appearance: PRESENT: mild distress Head exam: PRESENT: normocephalic Eye exam: PRESENT: EOMI Ear exam: PRESENT: normal external ear exam Mouth exam: PRESENT: moist Teeth exam: PRESENT: edentulous Neck exam: PRESENT: full ROM Respiratory exam: PRESENT: accessory muscle use Cardiovascular exam: PRESENT: RRR Pulses: PRESENT: normal radial pulses, normal femoral pulses Vascular exam: PRESENT: normal capillary refill Breast: PRESENT: Normal GI/Abdominal exam: PRESENT: other - wound intact, serous drainage from lower aspect Dr Nieto digitalized wound yesterday, fascia intact Rectal exam: PRESENT: deferred Musculoskeletal exam: PRESENT: normal inspection Neurological exam: PRESENT: awake, oriented to person Psychiatric exam: PRESENT: appropriate affect Skin exam: PRESENT: dry Results Laboratory Results: 06/11/20 04:10 06/11/20 04:10 06/11/20 06/11/20 06/11/20 04:10 04:10 12:35 WBC 18.7 H RBC 4.23 Hgb 10.3 L Hct 32.9 L MCV 78 L MCH 24.3 L MCHC 31.2 L RDW 18.1 H Plt Count 232 Seg Neutrophils % Not Reportable Carbonic Acid 1.02 L HCO3/H2CO3 Ratio 17:1 ABG pH 7.34 L ABG pCO2 33.9 L ABG pO2 63.6 L ABG HCO3 17.8 L ABG O2 Saturation 91.3 L ABG Base Excess -7.1 FiO2 28% Sodium 138.6 Potassium 4.0 Chloride 105 Carbon Dioxide 19 L Anion Gap 15 BUN 62 H Creatinine 2.69 H Est GFR ( Amer) 21 L Glucose 143 H Calcium 7.6 L Phosphorus 4.6 H Magnesium 2.4 H 06/07/20 06/07/20 06/07/20 06:15 10:52 17:07 CK-MB (CK-2) 1.44 Troponin I 1.110 1.080 0.929 Impressions: Abdomen CT 06/04/20 11:42 IMPRESSION: See below IMPRESSION: 1. Large hiatal hernia containing the majority of the stomach which is within the RIGHT hemithorax, chronicity uncertain. There is evidence of a perforated viscus was large volume pneumoperitoneum. The point of perf oration is not readily identifiable. Findings may be related to gastric volvulus secondary to large hiatal hernia although delineation of stomach anatomy is limited secondary to lack contrast and motion artifact. Additionally there is a questionable soft tissue mass in the region of the cecum with right pericolonic extraluminal gas. Small volume pelvic ascites, likely reactive. Recommend emergent surgical consultation. 2. Significant right lower lobe consolidation with small bilateral pleural effusion, possibly atelectasis or infection. 3. Multiple additional incidental findings as above. Findings discussed with Dr. Sheehan at 1333 hours on 06/04/2020. Chest CT 06/04/20 11:42 IMPRESSION: See below IMPRESSION: 1. Large hiatal hernia containing the majority of the stomach which is within the RIGHT hemithorax, chronicity uncertain. There is evidence of a perforated viscus was large volume pneumoperitoneum. The point of perforation is not readily identifiable. Findings may be related to gastric volvulus secondary to large hiatal hernia although delineation of stomach anatomy is limited secondary to lack contrast and motion artifact. Additionally there is a questionable soft tissue mass in the region of the cecum with right pericolonic extraluminal gas. Small volume pelvic ascites, likely reactive. Recommend emergent surgical consultation. 2. Significant right lower lobe consolidation with small bilateral pleural effusion, possibly atelectasis or infection. 3. Multiple additional incidental findings as above. Findings discussed with Dr. Sheehan at 1333 hours on 06/04/2020. KUB X-Ray 06/04/20 18:25 IMPRESSION: Nasogastric tube in the stomach. Chest X-Ray 06/10/20 04:00 IMPRESSION: Small bilateral pleural effusions Left lower lobe collapse/ consolidation Free intraperitoneal air Assessment & Plan - Time Anticipated Discharge Disposition: Home, Self Care Anticipated Discharge Timeframe: unk - Plan Summary Plan Summary: remains critical on bipap ;in icu now passing some flatus urine op adequate will cont to follow with disease education specialist.
--- NOTE | 2020-06-11 17:26 | PDOC CRITICAL CARE PROG REPORT ---
General Date:: 06/11/20 ICU Day:: 7 Hospital Day:: 7 Resuscitation Status: Full Code Events in the past 12 to 24 Hours:: Still on levophed but hope to extubate today. 06/08: Extubated this AM. 06/09: Remains extubated. Off norepinephrine. WBC 25.9 this AM. On Unasyn (per surgery) and Rocephin. E. coli (pansensitive) isolated from urine (06/04). 06/10: Had a run of SVT, heart rate 180s to 190s. This was effectively treated with adenosine 6 mg IV single dose. 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 This was addressed with Lopressor 2.5 mg IV. Today, on BiPAP, FiO2 45%. Awake, alert. Mildly disoriented. Family has suspicion of underlying baseline dementia. Continues to have copious clear serous drainage from incisional wound. WBC 25.9>19.2. Creatinine 2.8. She is on Unasyn for perioperative antibiotic prophylaxis (possible abdominal sepsis) and treatment of E. coli UTI. 06/11: No events reported overnight. Got 25 g albumin followed by furosemide 80 mg IV single dose yesterday, in an attempt to mobilize third spaced fluids. She is tolerating chest percussion therapy. Creatinine 2.7, slightly better today. WBC 19.218.7. Continues on Unasyn. Review of systems relevant to events:: Pulmonary, GI. Reason for ICU Addmission:: Perforated abdominal viscus, SIRS/Sepsis. Now intubated and on levophed post op. - Medications: Medications reviewed and adjusted accordingly: Yes Vasopressors:: None Physical Exam Vital Signs: Temp Pulse Resp BP Pulse Ox 98.4 F 75 19 101/81 99 06/11/20 05:13 06/11/20 08:51 06/11/20 08:51 06/11/20 08:31 06/11/20 08:51 Intake & Output 06/10/20 06/11/20 06/12/20 06:59 06:59 06:59 Intake Total 2000 Output Total 1585 1400 155 Balance 416 -1300 -155 Weight 89.1 kg 86 kg Weight/Height Weight 86 kg Height 1.6 m General appearance: PRESENT: no acute distress, well-developed, well-nourished Head exam: PRESENT: atraumatic, normocephalic Neck exam: ABSENT: carotid bruit, JVD, lymphadenopathy, thyromegaly Respiratory exam: PRESENT: clear to auscultation juan carlos. ABSENT: rales, rhonchi, wheezes Cardiovascular exam: PRESENT: RRR. ABSENT: diastolic murmur, rubs, systolic murmur Pulses: PRESENT: normal dorsalis pedis pul GI/Abdominal exam: PRESENT: hypoactive bowel sounds, soft. ABSENT: distended, guarding, mass, organolmegaly, rebound, tenderness Gentrourinary exam: PRESENT: indwelling catheter Extremities exam: PRESENT: full ROM, pedal edema, +2 edema. ABSENT: calf tenderness, clubbing Neurological exam: PRESENT: alert, awake, oriented to person, oriented to place, oriented to time, oriented to situation, CN II-XII grossly intact. ABSENT: motor sensory deficit Psychiatric exam: ABSENT: agitated, anxious Skin exam: PRESENT: other - Incisional wound with serosanguineous drainage Tubes/Lines: PRESENT: Central Line Laboratory/Radiographs Laboratory Results: 06/11/20 04:10 06/11/20 04:10 06/11/20 06/11/20 04:10 04:10 WBC 18.7 H RBC 4.23 Hgb 10.3 L Hct 32.9 L MCV 78 L MCH 24.3 L MCHC 31.2 L RDW 18.1 H Plt Count 232 Seg Neutrophils % Not Reportable Sodium 138.6 Potassium 4.0 Chloride 105 Carbon Dioxide 19 L Anion Gap 15 BUN 62 H Creatinine 2.69 H Est GFR ( Amer) 21 L Glucose 143 H Calcium 7.6 L Phosphorus 4.6 H Magnesium 2.4 H 06/07/20 06/07/20 06/07/20 06:15 10:52 17:07 CK-MB (CK-2) 1.44 Troponin I 1.110 1.080 0.929 Impressions: Abdomen CT 06/04/20 11:42 IMPRESSION: See below IMPRESSION: 1. Large hiatal hernia containing the majority of the stomach which is within the RIGHT hemithorax, chronicity uncertain. There is evidence of a perforated viscus was large volume pneumoperitoneum. The point of perforation is not readily identifiable. Findings may be related to gastric vol vulus secondary to large hiatal hernia although delineation of stomach anatomy is limited secondary to lack contrast and motion artifact. Additionally there is a questionable soft tissue mass in the region of the cecum with right pericolonic extraluminal gas. Small volume pelvic ascites, likely reactive. Recommend emergent surgical consultation. 2. Significant right lower lobe consolidation with small bilateral pleural effusion, possibly atelectasis or infection. 3. Multiple additional incidental findings as above. Findings discussed with Dr. Sheehan at 1333 hours on 06/04/2020. Chest CT 06/04/20 11:42 IMPRESSION: See below IMPRESSION: 1. Large hiatal hernia containing the majority of the stomach which is within the RIGHT hemithorax, chronicity uncertain. There is evidence of a perforated viscus was large volume pneumoperitoneum. The point of per foration is not readily identifiable. Findings may be related to gastric volvulus secondary to large hiatal hernia although delineation of stomach anatomy is limited secondary to lack contrast and motion artifact. Additionally there is a questionable soft tissue mass in the region of the cecum with right pericolonic extraluminal gas. Small volume pelvic ascites, likely reactive. Recommend emergent surgical consultation. 2. Significant right lower lobe consolidation with small bilateral pleural effusion, possibly atelectasis or infection. 3. Multiple additional incidental findings as above. Findings discussed with Dr. Sheehan at 1333 hours on 06/04/2020. KUB X-Ray 06/04/20 18:25 IMPRESSION: Nasogastric tube in the stomach. Chest X-Ray 06/10/20 04:00 IMPRESSION: Small bilateral pleural effusions Left lower lobe collapse/ consolidation Free intraperitoneal air All labs, radiographs, diagnostic studies and EKGs were personally reviewed: Yes In addition, reports of radiographic and diagnostic studies were read: Yes Assessment and Plan - Diagnosis (1) Dehydration Is this a current diagnosis for this admission?: Yes Plan: * Normal saline 1 L IV bolus. * Albumin 25 g IV single dose. (2) Cecal perforation with cancer Is this a current diagnosis for this admission?: Yes Plan: * Status post partial colon resection. Continue supportive therapy. * Oncology input appreciated. * Need to optimize postoperative pain control. The patient needs to be able to engage in incentive spirometry. * BiPAP as needed. (3) E. coli UTI Is this a current diagnosis for this admission?: Yes Plan: * Continue Unasyn. (4) Oliguria Is this a current diagnosis for this admission?: Yes (5) Shock Is this a current diagnosis for this admission?: Yes Plan: * Resolved. * Septic shock with a likely component of hypovolemic shock, worsened by third spacing of fluids (postoperative state, hypoalbuminemia). * Albumin 25 mg IV followed by furosemide 80 mg IV single dose. Monitor urine output and blood pressure. Critical Time Critical Time (minutes): 45 Level of Care: ICU -: 1. The care of a critical patient is a dynamic process. This note is a medicare sales representative synopsis but static in nature. The timeframe for treatments given in order is not necessarily the actual time these treatments may have been done. 2. This patient requires critical care secondary to ongoing requirements for therapy not offered or safe outside the critical care environment. Transfer to a lower level of care will result in altered life or limb morbidity and mortality. 3. Multidisciplinary rounds completed. 4. ABCDE bundle addressed.
[2020-06-11] MEDS ORDERED: FUROSEMIDE INJ/PF 40 MG/4 ML SDV IV ONE (18:15)
--- NOTE | 2020-06-11 21:56 | EKG REPORT ---
SEVERITY:- ABNORMAL ECG - ATRIAL FIBRILLATION LOW VOLTAGE IN FRONTAL LEADS ANTEROLATERAL INFARCT, OLD BORDERLINE T ABNORMALITIES, LATERAL LEADS : Confirmed by: Zee Walker MD 11-Jun-2020 21:56:11
[2020-06-11] MEDS: FAMOTIDINE INJ/PF 20 MG/2 ML SDV IV SCH (22:33)
[2020-06-12] MEDS: METOPROLOL TARTRATE PF/INJ 5 MG/5 ML SDV IV SCH ×4 (00:34→17:45)
[2020-06-12] MEDS: DEXAMETHASONE SOD PHOSPHATE INJ 4 MG/1 ML VIAL IV SCH ×3 (02:36→17:44)
[2020-06-12] MEDS: ALBUMIN HUMAN 12.5 GM/50 ML RTUINJ IV SCH ×3 (02:36→17:45)
[2020-06-12 04:56] LABS: HEMATOCRIT 28.6 % (36.0-47.0); HEMOGLOBIN 8.8 g/dL (12.0-15.5); MEAN CORPUSCULAR HGB CONC 30.6 g/dL (32.0-36.0); MEAN CORPUSCULAR VOLUME 78 fl (80-97); PLATELET COUNT 248 10^3/uL (150-450); RED BLOOD COUNT 3.65 10^6/uL (3.72-5.28); WHITE BLOOD COUNT 26.8 10^3/uL (4.0-10.5)
[2020-06-12 05:13] LABS: ANION GAP 14 (5-19); BLOOD UREA NITROGEN 70 mg/dL (7-20); CALCIUM 7.6 mg/dL (8.4-10.2); CARBON DIOXIDE 18 mmol/L (22-30); CHLORIDE 109 mmol/L (98-107); GLUCOSE 153 mg/dL (75-110); PHOSPHORUS 4.7 mg/dL (2.5-4.5); POTASSIUM 4.2 mmol/L (3.6-5.0)
[2020-06-12] MEDS: AMPICILLIN SODIUM/SULBACTAM NA 3 GM in NORMAL SALINE 100 ML IV SCH ×2 (05:31→14:59)
[2020-06-12 05:42] LABS: ABSOLUTE LYMPHOCYTES# (MANUAL) 1.3 10^3/uL (0.5-4.7); BASOPHILS % (MANUAL) 0 % (0-2); EOSINOPHILS % (MANUAL) 0 % (0-6); LYMPHOCYTES % (MANUAL) 5 % (13-45); MONOCYTES % (MANUAL) 0 % (3-13); NUCLEATED RED BLOOD CELLS 1 /100 WBC (0); SEGMENTED NEUTROPHILS % (MAN) 95 % (42-78); TOTAL CELLS COUNTED 100
[2020-06-12 05:44] LABS: ANISOCYTOSIS 2+; BURR CELLS 1+; HYPOCHROMASIA 1+; PLATELET COMMENT ADEQUATE; POIKILOCYTOSIS 1+; POLYCHROMASIA SLIGHT; SCHISTOCYTES SLIGHT; TARGET CELLS SLIGHT; TEAR DROP CELLS 1+
[2020-06-12] MEDS: ENOXAPARIN SODIUM INJ 30 MG/0.3 ML DISP.SYRIN SUBCUT SCH (11:54)
[2020-06-12] MEDS: NYSTATIN TOPICAL POWDER 15 GM TP SCH ×2 (11:55→17:46)
--- NOTE | 2020-06-12 12:32 | PDOC PROGRESS REPORT ---
Subjective Date:: 06/12/20 Subjective:: Nursing staff noted increased drainage from her wound. Reason For Visit: PERFORATED CECUM Physical Exam Vital Signs: Temp Pulse Resp BP Pulse Ox 100 F 97 21 H 115/83 96 06/12/20 08:00 06/12/20 08:00 06/12/20 10:01 06/12/20 10:01 06/12/20 10:01 Intake & Output 06/11/20 06/12/20 06/13/20 06:59 06:59 06:59 Intake Total 100 672 Output Total 1400 580 150 Balance -1300 92 -150 Weight 86 kg 86.5 kg General appearance: PRESENT: no acute distress, cooperative Respiratory exam: PRESENT: clear to auscultation juan carlos Cardiovascular exam: PRESENT: RRR GI/Abdominal exam: PRESENT: other - Soft, nondistended, minimal tenderness. Her lower incision [place] were removed and her wound explored and there was turbid serous fluid that was blotted out. The fascia was palpated including the upper fascia by placing my finger cephalad at the wound. I do not palpate gross fascial defect. Results Laboratory Results: 06/12/20 04:40 06/12/20 04:40 06/11/20 06/12/20 06/12/20 12:35 04:40 04:40 WBC 26.8 H RBC 3.65 L Hgb 8.8 L Hct 28.6 L MCV 78 L MCH 24.0 L MCHC 30.6 L RDW 19.0 H Plt Count 248 Seg Neutrophils % Not Reportable Carbonic Acid 1.02 L HCO3/H2CO3 Ratio 17:1 ABG pH 7.34 L ABG pCO2 33.9 L ABG pO2 63.6 L ABG HCO3 17.8 L ABG O2 Saturation 91.3 L ABG Base Excess -7.1 FiO2 28% Sodium 141.4 Potassium 4.2 Chloride 109 H Carbon Dioxide 18 L Anion Gap 14 BUN 70 H Creatinine 2.63 H Est GFR ( Amer) 21 L Glucose 153 H Calcium 7.6 L Phosphorus 4.7 H Magnesium 2.5 H 06/07/20 06/07/20 06/07/20 06:15 10:52 17:07 CK-MB (CK-2) 1.44 Troponin I 1.110 1.080 0.929 Impressions: Abdomen CT 06/04/20 11:42 IMPRESSION: See below IMPRESSION: 1. Large hiatal hernia containing the majority of the stomach which is within the RIGHT hemithorax, chronicity uncertain. There is evidence of a perforated viscus was large volume pneumoperitoneum. The point of perforation is not readily identifiable. Findings may be related to gastric volvulus secondary to large hiatal hernia although delineation of stomach anatomy is limited secondary to lack contrast and motion artifact. Additionally there is a questionable soft tissue mass in the region of the cecum with right pericolonic extraluminal gas. Small volume pelvic ascites, likely reactive. Recommend emergent surgical consultation. 2. Significant right lower lobe consolidation with small bilateral pleural effusion, possibly atelectasis or infection. 3. Multiple additional incidental findings as above. Findings discussed with Dr. Sheehan at 1333 hours on 06/04/2020. Chest CT 06/04/20 11:42 IMPRESSION: See below IMPRESSION: 1. Large hiatal hernia containing the majority of the stomach which is within the RIGHT hemithorax, chronicity uncertain. There is evidence of a perforated viscus was large volume pneumoperitoneum. The point of perforation is not readily identifiable. Findings may be related to gastric volvulus secondary to large hiatal hernia although delineation of stomach anatomy is limited secondary to lack contrast and motion artifact. Additionally there is a questionable soft tissue mass in the region of the cecum with right pericolonic extraluminal gas. Small volume pelvic ascites, likely reactive. Recommend emergent surgical consultation. 2. Significant right lower lobe consolidation with small bilateral pleural effusion, possibly atelectasis or infection. 3. Multiple additional incidental findings as above. Findings discussed with Dr. Sheehan at 1333 hours on 06/04/2020. KUB X-Ray 06/04/20 18:25 IMPRESSION: Nasogastric tube in the stomach. Chest X-Ray 06/10/20 04:00 IMPRESSION: Small bilateral pleural effusions Left lower lobe collapse/ consolidation Free intraperitoneal air Assessment & Plan - Diagnosis (1) Cecal perforation with cancer Is this a current diagnosis for this admission?: Yes (2) Wound drainage Is this a current diagnosis for this admission?: Yes (3) Dehiscence of fascia Is this a current diagnosis for this admission?: Yes Plan: Her wound drainage concerning for fascial dehiscence although gross fascial separation is not palpated. We will try to manage it conservatively with abdominal binder and bedrest. If it worsens and/or gross fascial defect is palpable, patient may need to go to the OR for fascial reclosure. - Time Anticipated Discharge Disposition: Care Home Facility Anticipated Discharge Timeframe: week
[2020-06-12] MEDS ORDERED: VANCOMYCIN HCL 0 MG in DEXTROSE 5%-WATER 250 ML IV NR (15:30)
[2020-06-12] MEDS: CEFTRIAXONE 1 GM/D5W RTU 1 GM/50 ML RTUPB IV SCH (17:44)
[2020-06-12] MEDS: METRONIDAZOLE 500 MG/NS RTU 500 MG/100 ML RTUPB IV SCH ×2 (17:47→21:53)
[2020-06-12] MEDS: MORPHINE SULFATE 10 MG/ML INJ IV PRN ×2 (18:16→21:57)
[2020-06-12] MEDS: NORMAL SALINE 1000 ML 1,000 ML IV PRN (19:00)
--- NOTE | 2020-06-12 19:33 | PDOC CRITICAL CARE PROG REPORT ---
General Date:: 06/12/20 ICU Day:: 8 Hospital Day:: 8 Resuscitation Status: Full Code Events in the past 12 to 24 Hours:: Still on levophed but hope to extubate today. 06/08: Extubated this AM. 06/09: Remains extubated. Off norepinephrine. WBC 25.9 this AM. On Unasyn (per surgery) and Rocephin. E. coli (pansensitive) isolated from urine (06/04). 06/10: Had a run of SVT, heart rate 180s to 190s. This was effectively treated with adenosine 6 mg IV single dose. 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 This was addressed with Lopressor 2.5 mg IV. Today, on BiPAP, FiO2 45%. Awake, alert. Mildly disoriented. Family has suspicion of underlying baseline dementia. Continues to have copious clear serous drainage from incisional wound. WBC 25.9>19.2. Creatinine 2.8. She is on Unasyn for perioperative antibiotic prophylaxis (possible abdominal sepsis) and treatment of E. coli UTI. 06/11: No events reported overnight. Got 25 g albumin followed by furosemide 80 mg IV single dose yesterday, in an attempt to mobilize third spaced fluids. She is tolerating chest percussion therapy. Creatinine 2.7, slightly better today. WBC 19.218.7. Continues on Unasyn. 06/12: No repeat events reported overnight. WBC 18.7>26.8. Serosanguineous drainage from abdominal incision has turned yellow and cloudy, almost creamy. She is tolerating chest percussion therapy. Able to spend time off BiPAP, on nasal cannula. Creatinine 2.6 today. Review of systems relevant to events:: Pulmonary, GI. Reason for ICU Addmission:: Perforated abdominal viscus, SIRS/Sepsis. Now intubated and on levophed post op. - Medications: Medications reviewed and adjusted accordingly: Yes Vasopressors:: None Physical Exam Vital Signs: Temp Pulse Resp BP Pulse Ox 100 F 97 19 110/99 H 95 06/12/20 10:00 06/12/20 08:00 06/12/20 14:01 06/12/20 14:01 06/12/20 14:01 Intake & Output 06/11/20 06/12/20 06/13/20 06:59 06:59 06:59 Intake Total 100 672 50 Output Total 1400 580 275 Balance -1300 92 -225 Weight 86 kg 86.5 kg Weight/Height Weight 86.5 kg Height 1.6 m General appearance: PRESENT: no acute distress, well-developed, well-nourished Head exam: PRESENT: atraumatic, normocephalic Eye exam: PRESENT: conjunctiva pink, EOMI, PERRLA. ABSENT: scleral icterus Mouth exam: PRESENT: moist, tongue midline Respiratory exam: PRESENT: rales, rhonchi. ABSENT: wheezes Cardiovascular exam: PRESENT: RRR. ABSENT: diastolic murmur, rubs, systolic murmur GI/Abdominal exam: PRESENT: hypoactive bowel sounds, soft, other - Yellow cloudy drainage from incisional wound. ABSENT: distended, guarding, mass, organolmegaly, rebound, tenderness Gentrourinary exam: PRESENT: indwelling catheter Extremities exam: PRESENT: full ROM, pedal edema, +2 edema. ABSENT: calf tenderness, clubbing Musculoskeletal exam: PRESENT: normal inspection. ABSENT: deformity Neurological exam: PRESENT: alert, awake, oriented to person, oriented to place, oriented to time, oriented to situation, CN II-XII grossly intact. ABSENT: motor sensory deficit Psychiatric exam: ABSENT: agitated, anxious Laboratory/Radiographs Laboratory Results: 06/12/20 04:40 06/12/20 04:40 06/12/20 06/12/20 04:40 04:40 WBC 26.8 H RBC 3.65 L Hgb 8.8 L Hct 28.6 L MCV 78 L MCH 24.0 L MCHC 30.6 L RDW 19.0 H Plt Count 248 Seg Neutrophils % Not Reportable Sodium 141.4 Potassium 4.2 Chloride 109 H Carbon Dioxide 18 L Anion Gap 14 BUN 70 H Creatinine 2.63 H Est GFR ( Amer) 21 L Glucose 153 H Calcium 7.6 L Phosphorus 4.7 H Magnesium 2.5 H 06/07/20 06/07/20 06/07/20 06:15 10:52 17:07 CK-MB (CK-2) 1.44 Troponin I 1.110 1.080 0.929 Impressions: Abdomen CT 06/04/20 11:42 IMPRESSION: See below IMPRESSION: 1. Large hiatal hernia containing the majority of the stomach which is within the RIGHT hemithorax, chronicity uncertain. There is evidence of a perforated viscus was large volume pneumoperitoneum. The point of perforation is not readily identifiable. Findings may be related to gastric volvulus secondary to large hiatal hernia although delineation of stomach anatomy is limited secondary to lack contrast and motion artifact. Additionally there is a questionable soft tissue mass in the region of the cecum with right pericolonic extraluminal gas. Small volume pelvic ascites, likely reactive. Recommend emergent surgical consultation. 2. Significant right lower lobe consolidation with small bilateral pleural effusion, possibly atelectasis or infection. 3. Multiple additional incidental findings as above. Findings discussed with Dr. Sheehan at 1333 hours on 06/04/2020. Chest CT 06/04/20 11:42 IMPRESSION: See below IMPRESSION: 1. Large hiatal hernia containing the majority of the stomach whic h is within the RIGHT hemithorax, chronicity uncertain. There is evidence of a perforated viscus was large volume pneumoperitoneum. The point of perforation is not readily identifiable. Findings may be related to gastric volvulus secondary to large hiatal hernia although delineation of stomach anatomy is limited secondary to lack contrast and motion artifact. Additionally there is a questionable soft tissue mass in the region of the cecum with right pericolonic extraluminal gas. Small volume pelvic ascites, likely reactive. Recommend emergent surgical consultation. 2. Significant right lower lobe consolidation with small bilateral pleural effusion, possibly atelectasis or infection. 3. Multiple additional incidental findings as above. Findings discussed with Dr. Sheeahn at 1333 hours on 06/04/2020. KUB X-Ray 06/04/20 18:25 IMPRESSION: Nasogastric tube in the stomach. Chest X-Ray 06/10/20 04:00 IMPRESSION: Small bilateral pleural effusions Left lower lobe collapse/ consolidation Free intraperitoneal air All labs, radiographs, diagnostic studies and EKGs were personally reviewed: Yes In addition, reports of radiographic and diagnostic studies were read: Yes Assessment and Plan - Diagnosis (1) Wound infection Is this a current diagnosis for this admission?: Yes Plan: * Culture wound for Gram stain, C/S. * Stop Unasyn. Broaden antibiotic coverage: Rocephin/Flagyl/vancomycin. (2) Cecal perforation with cancer Is this a current diagnosis for this admission?: Yes Plan: * Status post partial colon resection. Continue supportive therapy. * Oncology input appreciated. * Need to optimize postoperative pain control. * Flutter valve. Incentive spirometry. * BiPAP as needed. (3) E. coli UTI Is this a current diagnosis for this admission?: Yes Plan: * Continue Unasyn. (4) Dehydration Is this a current diagnosis for this admission?: Yes Plan: * Normal saline 1 L IV bolus. * Albumin 25 g IV single dose. (5) Oliguria Is this a current diagnosis for this admission?: Yes (6) Shock Is this a current diagnosis for this admission?: Yes Critical Time Critical Time (minutes): 45 Level of Care: ICU -: 1. The care of a critical patient is a dynamic process. This note is a business center representative synopsis but static in nature. The timeframe for treatments given in order is not necessarily the actual time these treatments may have been done. 2. This patient requires critical care secondary to ongoing requirements for therapy not offered or safe outside the critical care environment. Transfer to a lower level of care will result in altered life or limb morbidity and morta lity. 3. Multidisciplinary rounds completed. 4. ABCDE bundle addressed.
[2020-06-12] MEDS: FAMOTIDINE INJ/PF 20 MG/2 ML SDV IV SCH (21:54)
[2020-06-12] MEDS: VANCOMYCIN HCL 500 MG in DEXTROSE 5%-WATER 100 ML IV SCH (22:32)
[2020-06-13] MEDS: METOPROLOL TARTRATE PF/INJ 5 MG/5 ML SDV IV SCH ×4 (01:44→17:21)
[2020-06-13] MEDS: ALBUMIN HUMAN 12.5 GM/50 ML RTUINJ IV SCH ×2 (01:58→09:14)
[2020-06-13] MEDS: DEXAMETHASONE SOD PHOSPHATE INJ 4 MG/1 ML VIAL IV SCH ×3 (01:59→17:21)
[2020-06-13] MEDS: METRONIDAZOLE 500 MG/NS RTU 500 MG/100 ML RTUPB IV SCH ×4 (01:59→22:07)
[2020-06-13 05:37] LABS: ANION GAP 15 (5-19); BLOOD UREA NITROGEN 69 mg/dL (7-20); CALCIUM 7.7 mg/dL (8.4-10.2); CARBON DIOXIDE 19 mmol/L (22-30); CHLORIDE 112 mmol/L (98-107); GLUCOSE 167 mg/dL (75-110); POTASSIUM 3.9 mmol/L (3.6-5.0)
[2020-06-13] MEDS: NYSTATIN TOPICAL POWDER 15 GM TP SCH ×2 (08:30→17:21)
[2020-06-13] MEDS: ENOXAPARIN SODIUM INJ 30 MG/0.3 ML DISP.SYRIN SUBCUT SCH (09:16)
[2020-06-13 09:44] LABS: HEMATOCRIT 29.5 % (36.0-47.0); HEMOGLOBIN 8.7 g/dL (12.0-15.5); MEAN CORPUSCULAR HEMOGLOBIN 23.1 pg (27.0-33.4); MEAN CORPUSCULAR HGB CONC 29.4 g/dL (32.0-36.0); MEAN CORPUSCULAR VOLUME 78 fl (80-97); PLATELET COUNT 285 10^3/uL (150-450); RED BLOOD COUNT 3.76 10^6/uL (3.72-5.28); RED CELL DISTRIBUTION WIDTH 18.8 % (11.5-14.0)
[2020-06-13 10:37] LABS: WHITE BLOOD COUNT 32.5 10^3/uL (4.0-10.5)
--- NOTE | 2020-06-13 12:12 | PDOC PROGRESS REPORT ---
Subjective Date:: 06/13/20 Reason For Visit: PERFORATED CECUM Patient remains in the ICU, on BiPAP. No pressors. Episodes of bradycardia. Wound draining significant amount of serous fluid. Physical Exam Vital Signs: Temp Pulse Resp BP Pulse Ox 97.5 F 90 31 H 123/87 H 97 06/13/20 08:26 06/13/20 10:00 06/13/20 10:00 06/13/20 10:00 06/13/20 10:00 Intake & Output 06/12/20 06/13/20 06/14/20 06:59 06:59 06:59 Intake Total 672 1500 Output Total 580 855 190 Balance 92 645 -190 Weight 86.5 kg 84.9 kg General appearance: PRESENT: other - Patient under breathing mask; does not follow commands consistently. Does not verbalize. GI/Abdominal exam: PRESENT: other - Abdomen examined. Midline packing removed. Significant minute serous drainage. PDS sutures intact; fascia not directly probed. No obvious dehiscence Results Laboratory Results: 06/13/20 09:23 06/13/20 04:40 06/13/20 06/13/20 04:40 09:23 WBC 32.5 H* RBC 3.76 Hgb 8.7 L Hct 29.5 L MCV 78 L MCH 23.1 L MCHC 29.4 L RDW 18.8 H Plt Count 285 Sodium 146.0 H Potassium 3.9 Chloride 112 H Carbon Dioxide 19 L Anion Gap 15 BUN 69 H Creatinine 2.52 H Est GFR ( Amer) 22 L Glucose 167 H Calcium 7.7 L 06/07/20 06/07/20 06/07/20 06:15 10:52 17:07 CK-MB (CK-2) 1.44 Troponin I 1.110 1.080 0.929 Impressions: Abdomen CT 06/04/20 11:42 IMPRESSION: See below IMPRESSION: 1. Large hiatal hernia containing the majority of the stomach which is within the RIGHT hemithorax, chronicity uncertain. There is evidence of a perforated viscus was large volume pneumoperitoneum. The point of perforation is not readily identifiable. Findings may be related to gastric volvulus secondary to large hiatal hernia although delineation of stomach anatomy is limited secondary to lack contrast and motion artifact. Additionally there is a questionable soft tissue mass in the region of the cecum with right pericolonic extraluminal gas. Small volume pelvic ascites, likely reactive. Recommend emergent surgical consultation. 2. Significant right lower lobe consolidation with small bilateral pleural effusion, possibly atelectasis or infection. 3. Multiple additional incidental findings as above. Findings discussed with Dr. Sheehan at 1333 hours on 06/04/2020. Chest CT 06/04/20 11:42 IMPRESSION: See below IMPRESSION: 1. Large hiatal hernia containing the majority of the stomach which is within the RIGHT hemithorax, chronicity uncertain. There is evidence of a perforated viscus was large volume pneumoperitoneum. The point of perforation is not readily identifiable. Findings may be related to gastric volvulus secondary to large hiatal hernia although delineation of stomach anatomy is limited secondary to lack contrast and motion artifact. Additionally there is a questionable soft tissue mass in the region of the cecum with right pericolonic extraluminal gas. Small volume pelvic ascites, likely reactive. Recommend emergent surgical consultation. 2. Significant right lower lobe consolidation with small bilateral pleural effusion, possibly atelectasis or infection. 3. Multiple additional incidental findings as above. Findings discussed with Dr. Sheehan at 1333 hours on 06/04/2020. KUB X-Ray 06/04/20 18:25 IMPRESSION: Nasogastric tube in the stomach. Chest X-Ray 06/10/20 04:00 IMPRESSION: Small bilateral pleural effusions Left lower lobe collapse/ consolidation Free intraperitoneal air Assessment & Plan - Diagnosis (1) Cecal perforation with cancer Is this a current diagnosis for this admission?: Yes Plan: Impression: Postoperative day 9 status post exploratory laparotomy right hemicolectomy for high-grade neuroendocrine tumor with perforation, 12 cm diameter, 1 of 19 lymph nodes positive for malignancy, persisting septic and acidotic clinical picture. Discussion: 1. In light of patient's advanced age, multiple comorbidities, extremely poor prognosis from an oncologic standpoint, I believe a serious conversation should be held with the family regarding level of aggressiveness of care. I discussed this with the sap data architect 2. We will continue to follow the patient with you. (2) Metabolic acidosis Is this a current diagnosis for this admission?: Yes (3) Dehydration Is this a current diagnosis for this admission?: Yes (4) Oliguria Is this a current diagnosis for this admission?: Yes - Time Anticipated Discharge Disposition: Intermediate Care Facility Anticipated Discharge Timeframe: within 72 hours - Inpatient Certification Based on my medical assessment, after consideration of the patient's comorbidities, presenting symptoms, or acuity I expect that the services needed warrant INPATIENT care.: Yes I certify that my determination is in accordance with my understanding of Medicare's requirements for reasonable and necessary INPATIENT services [42 CFR 412.3e].: Yes Medical Necessity: Need For IV Fluids, Need for IV Antibiotics
[2020-06-13] MEDS: NORMAL SALINE 1000 ML 1,000 ML IV PRN (12:32)
[2020-06-13] MEDS: MORPHINE SULFATE 10 MG/ML INJ IV PRN ×2 (15:21→21:06)
--- NOTE | 2020-06-13 16:06 | PDOC CRITICAL CARE PROG REPORT ---
General Date:: 06/13/20 ICU Day:: 9 Hospital Day:: 9 Resuscitation Status: Full Code Events in the past 12 to 24 Hours:: Still on levophed but hope to extubate today. 06/08: Extubated this AM. 06/09: Remains extubated. Off norepinephrine. WBC 25.9 this AM. On Unasyn (per surgery) and Rocephin. E. coli (pansensitive) isolated from urine (06/04). 06/10: Had a run of SVT, heart rate 180s to 190s. This was effectively treated with adenosine 6 mg IV single dose. However, the patient apparently had additional episodes during awake overnight counselor. This was addressed with Lopressor 2.5 mg IV. Today, on BiPAP, FiO2 45%. Awake, alert. Mildly disoriented. Family has suspicion of underlying baseline dementia. Continues to have copious clear serous drainage from incisional wound. WBC 25.9>19.2. Creatinine 2.8. She is on Unasyn for perioperative antibiotic prophylaxis (possible abdominal sepsis) and treatment of E. coli UTI. 06/11: No events reported overnight. Got 25 g albumin followed by furosemide 80 mg IV single dose yesterday, in an attempt to mobilize third spaced fluids. She is tolerating chest percussion therapy. Creatinine 2.7, slightly better today. WBC 19.218.7. Continues on Unasyn. 06/12: No repeat events reported overnight. WBC 18.7>26.8. Serosanguineous drainage from abdominal incision has turned yellow and cloudy, almost creamy. She is tolerating chest percussion therapy. Able to spend time off BiPAP, on nasal cannula. Creatinine 2.6 today. 06/13: No events reported overnight. WBC continues to climb, 32.5. Now having turbid, cloudy yellow drainage from abdominal incision. Otherwise, continuing to do well postoperatively. Tolerating nasal cannula (4 LPM) during the day. BiPAP at night. Creatinine 2.5. Case discussed with Dr. Last, who agrees she should start on tube feeds. Review of systems relevant to events:: Pulmonary, GI. Reason for ICU Addmission:: Perforated abdominal viscus, SIRS/Sepsis. Now intubated and on levophed post op. - Medications: Medications reviewed and adjusted accordingly: Yes Vasopressors:: None Physical Exam Vital Signs: Temp Pulse Resp BP Pulse Ox 98.2 F 60 17 128/81 H 97 06/13/20 12:00 06/13/20 14:00 06/13/20 14:00 06/13/20 14:00 06/13/20 14:00 Intake & Output 06/12/20 06/13/20 06/14/20 06:59 06:59 06:59 Intake Total 672 1500 1150 Output Total 580 855 325 Balance 92 645 825 Weight 86.5 kg 84.9 kg Weight/Height Weight 84.9 kg Height 1.6 m General appearance: PRESENT: no acute distress, well-developed, well-nourished Head exam: PRESENT: atraumatic, normocephalic Eye exam: PRESENT: conjunctiva pink, EOMI, PERRLA. ABSENT: scleral icterus Mouth exam: PRESENT: moist, tongue midline Neck exam: ABSENT: carotid bruit, JVD, lymphadenopathy, thyromegaly Respiratory exam: PRESENT: crackles, decreased breath sounds - Bases, symmetrical. ABSENT: rales, rhonchi, wheezes Cardiovascular exam: PRESENT: RRR. ABSENT: diastolic murmur, rubs, systolic murmur Pulses: PRESENT: normal dorsalis pedis pul GI/Abdominal exam: PRESENT: hypoactive bowel sounds, soft, other - Incision site draining creamy yellow fluid. ABSENT: distended, guarding, mass, organolmegaly, rebound, tenderness Extremities exam: PRESENT: full ROM. ABSENT: calf tenderness, clubbing, pedal edema Musculoskeletal exam: PRESENT: normal inspection. ABSENT: deformity Neurological exam: PRESENT: alert, awake, oriented to person, oriented to place, oriented to time, oriented to situation, CN II-XII grossly intact. ABSENT: motor sensory deficit Psychiatric exam: ABSENT: agitated, anxious Tubes/Lines: PRESENT: Central Line - Right IJ Laboratory/Radiographs Laboratory Results: 06/13/20 09:23 06/13/20 04:40 06/13/20 06/13/20 04:40 09:23 WBC 32.5 H* RBC 3.76 Hgb 8.7 L Hct 29.5 L MCV 78 L MCH 23.1 L MCHC 29.4 L RDW 18.8 H Plt Count 285 Sodium 146.0 H Potassium 3.9 Chloride 112 H Carbon Dioxide 19 L Anion Gap 15 BUN 69 H Creatinine 2.52 H Est GFR ( Amer) 22 L Glucose 167 H Calcium 7.7 L 06/07/20 06/07/20 06/07/20 06:15 10:52 17:07 CK-MB (CK-2) 1.44 Troponin I 1.110 1.080 0.929 Impressions: Abdomen CT 06/04/20 11:42 IMPRESSION: See below IMPRESSION: 1. Large hiatal hernia containing the majority of the stomach which is within the RIGHT hemithorax, chronicity uncertain. There is evidence of a perforated viscus was large volume pneumoperitoneum. The point of perforation is not readily identifiable. Findings may be related to gastric volvulus secondary to large hiatal hernia although delineation of stomach lee ann genet is limited secondary to lack contrast and motion artifact. Additionally there is a questionable soft tissue mass in the region of the cecum with right pericolonic extraluminal gas. Small volume pelvic ascites, likely reactive. Recommend emergent surgical consultation. 2. Significant right lower lobe consolidation with small bilateral pleural effusion, possibly atelectasis or infection. 3. Multiple additional incidental findings as above. Findings discussed with Dr. Sheehan at 1333 hours on 06/04/2020. Chest CT 06/04/20 11:42 IMPRESSION: See below IMPRESSION: 1. Large hiatal hernia containing the majority of the stomach which is within the RIGHT hemithorax, chronicity uncertain. There is evidence of a perforated viscus was large volume pneumoperitoneum. The point of perforation is not readily identifiable. Findings may be related to gastric v olvulus secondary to large hiatal hernia although delineation of stomach anatomy is limited secondary to lack contrast and motion artifact. Additionally there is a questionable soft tissue mass in the region of the cecum with right pericolonic extraluminal gas. Small volume pelvic ascites, likely reactive. Recommend emergent surgical consultation. 2. Significant right lower lobe consolidation with small bilateral pleural effusion, possibly atelectasis or infection. 3. Multiple additional incidental findings as above. Findings discussed with Dr. Sheehan at 1333 hours on 06/04/2020. KUB X-Ray 06/04/20 18:25 IMPRESSION: Nasogastric tube in the stomach. Chest X-Ray 06/10/20 04:00 IMPRESSION: Small bilateral pleural effusions Left lower lobe collapse/ consolidation Free intraperitoneal air All labs, radiographs, diagnostic studies and EKGs were personally reviewed: Yes In addition, reports of radiographic and diagnostic studies were read: Yes Assessment and Plan - Diagnosis (1) Cecal perforation with cancer Is this a current diagnosis for this admission?: Yes Plan: Impression: Postoperative day 9 status post exploratory laparotomy right hemicolectomy for high-grade neuroendocrine tumor with perforation, 12 cm diameter, 1 of 19 lymph nodes positive for malignancy, persisting septic and acidotic clinical picture. Discussion: 1. In light of patient's advanced age, multiple comorbidities, extremely poor prognosis from an oncologic standpoint, I believe a serious conversation should be held with the family regarding level of aggressiveness of care. I discussed this with the application development director 2. We will continue to follow the patient with you. (2) Wound infection Is this a current diagnosis for this admission?: Yes Plan: * Wound culture (06/12) pending. * On Rocephin/Flagyl/vancomycin. (3) E. coli UTI Is this a current diagnosis for this admission?: Yes Plan: * Continue Rocephin (4) Dehydration Is this a current diagnosis for this admission?: Yes (5) Oliguria Is this a current diagnosis for this admission?: Yes (6) Shock Is this a current diagnosis for this admission?: Yes Plan: * Resolved. * Septic shock with a likely component of hypovolemic shock, worsened by third spacing of fluids (postoperative state, hypoalbuminemia). (7) Atelectasis pulmonary Is this a current diagnosis for this admission?: Yes Plan: * Left lower lobe atelectasis, postoperative * Needs pulmonary toilet, incentive spirometry, flutter valve Plan Summary: Okay to transfer to floor from pulmonary/critical care standpoint. Critical Time Critical Time (minutes): 45 Level of Care: ICU -: 1. The care of a critical patient is a dynamic process. This note is a congressional representative synopsis but static in nature. The timeframe for treatments given in order is not necessarily the actual time these treatments may have been done. 2. This patient requires critical care secondary to ongoing requirements for therapy not offered or safe outside the critical care environment. Transfer to a lower level of care will result in altered life or limb morbidity and mortality. 3. Multidisciplinary rounds completed. 4. ABCDE bundle addressed.
[2020-06-13] MEDS ORDERED: DEXTROSE 40% GEL 15 GM TUBE PO PRN ×2 (16:58)
[2020-06-13] MEDS ORDERED: GLUCAGON,HUMAN RECOMB 1 MG INJ IM PRN (16:58)
[2020-06-13] MEDS ORDERED: DEXTROSE 50%-WATER 25 GM/50 ML DISP.SYRIN IV PRN ×2 (16:58)
[2020-06-13] MEDS ORDERED: DEXTROSE 10%-WATER 1,000 ML IV PRN (16:58)
[2020-06-13] MEDS: CEFTRIAXONE 1 GM/D5W RTU 1 GM/50 ML RTUPB IV SCH (17:21)
[2020-06-13] MEDS: INSULIN REG, HUMAN 100 UNIT/ML 3 ML VIAL (PYX) SUBCUT SCH (18:00)
[2020-06-13 18:29] LABS: HEMATOCRIT 28.8 % (36.0-47.0); HEMOGLOBIN 8.6 g/dL (12.0-15.5); MEAN CORPUSCULAR HEMOGLOBIN 23.6 pg (27.0-33.4); MEAN CORPUSCULAR HGB CONC 29.9 g/dL (32.0-36.0); MEAN CORPUSCULAR VOLUME 79 fl (80-97); PLATELET COUNT 304 10^3/uL (150-450); RED BLOOD COUNT 3.64 10^6/uL (3.72-5.28)
[2020-06-13 18:33] LABS: PROTHROMBIN TIME 25.3 SEC (11.4-15.4)
[2020-06-13 18:46] LABS: WHITE BLOOD COUNT 35.3 10^3/uL (4.0-10.5)
[2020-06-13] MEDS ORDERED: FLUCONAZOLE 400 MG/NS RTU 400 MG/200 ML RTUPB IV ONE (19:30)
[2020-06-13] MEDS: FAMOTIDINE INJ/PF 20 MG/2 ML SDV IV SCH (22:07)
[2020-06-13] MEDS: VANCOMYCIN HCL 500 MG in DEXTROSE 5%-WATER 100 ML IV SCH (22:08)
[2020-06-14] MEDS: METOPROLOL TARTRATE PF/INJ 5 MG/5 ML SDV IV SCH ×5 (00:32→23:40)
[2020-06-14] MEDS: DEXAMETHASONE SOD PHOSPHATE INJ 4 MG/1 ML VIAL IV SCH ×3 (01:42→21:21)
[2020-06-14] MEDS: INSULIN REG, HUMAN 100 UNIT/ML 3 ML VIAL (PYX) SUBCUT SCH ×5 (01:42→23:43)
[2020-06-14] MEDS: NORMAL SALINE 1000 ML 1,000 ML IV PRN (01:46)
[2020-06-14] MEDS: METRONIDAZOLE 500 MG/NS RTU 500 MG/100 ML RTUPB IV SCH ×4 (02:39→21:05)
[2020-06-14 06:58] LABS: ALBUMIN 2.3 g/dL (3.5-5.0); ALKALINE PHOSPHATASE 55 U/L (38-126); ANION GAP 11 (5-19); ASPARTATE AMINO TRANSFERASE 26 U/L (14-36); BILIRUBIN,DIRECT 1.6 mg/dL (0.0-0.4); BILIRUBIN,TOTAL 1.8 mg/dL (0.2-1.3); BLOOD UREA NITROGEN 68 mg/dL (7-20); CALCIUM 7.9 mg/dL (8.4-10.2); CARBON DIOXIDE 20 mmol/L (22-30); CHLORIDE 117 mmol/L (98-107); GLUCOSE 175 mg/dL (75-110); PHOSPHORUS 4.5 mg/dL (2.5-4.5); TOTAL PROTEIN 4.3 g/dL (6.3-8.2)
[2020-06-14 07:05] LABS: PREALBUMIN 7.3 mg/dL (17.6-36.0)
[2020-06-14] MEDS: ENOXAPARIN SODIUM INJ 30 MG/0.3 ML DISP.SYRIN SUBCUT SCH (09:35)
[2020-06-14] MEDS: NYSTATIN TOPICAL POWDER 15 GM TP SCH ×2 (09:35→17:31)
[2020-06-14] MEDS ORDERED: FLUCONAZOLE 400 MG/NS RTU 400 MG/200 ML RTUPB IV ONE (10:00)
--- NOTE | 2020-06-14 11:10 | PDOC PROGRESS REPORT ---
Subjective Date:: 06/14/20 Reason For Visit: PERFORATED CECUM Patient remains extubated in the ICU, unresponsive, does not follow commands, moves about nonpurposefully. No pressors, maintaining sats on nasal cannula Physical Exam Vital Signs: Temp Pulse Resp BP Pulse Ox 97.9 F 68 20 128/45 H 97 06/13/20 22:00 06/14/20 08:36 06/14/20 08:36 06/14/20 06:01 06/14/20 08:36 Intake & Output 06/13/20 06/14/20 06/15/20 06:59 06:59 06:59 Intake Total 1500 2294 Output Total 855 950 Balance 645 1344 Weight 84.9 kg 86.1 kg General appearance: PRESENT: other - Patient thrashing her head, not following commands GI/Abdominal exam: PRESENT: other - Abdomen with midline wound packed, ostomy appliance over the inferior aspect. Results Laboratory Results: 06/13/20 18:08 06/14/20 06:35 06/13/20 06/13/20 06/14/20 18:08 18:08 06:35 WBC 35.3 H* RBC 3.64 L Hgb 8.6 L Hct 28.8 L MCV 79 L MCH 23.6 L MCHC 29.9 L RDW 19.0 H Plt Count 304 Sodium 147.6 H Potassium 4.0 Chloride 117 H Carbon Dioxide 20 L Anion Gap 11 BUN 68 H Creatinine 2.15 H Est GFR ( Amer) 27 L Glucose 175 H Calcium 7.9 L Phosphorus 4.5 Magnesium 2.4 H Total Bilirubin 1.8 H AST 26 Alkaline Phosphatase 55 Total Protein 4.3 L Albumin 2.3 L Prealbumin 7.3 L Triglycerides 159 H 06/07/20 06/07/20 06/07/20 06:15 10:52 17:07 CK-MB (CK-2) 1.44 Troponin I 1.110 1.080 0.929 Impressions: Abdomen CT 06/04/20 11:42 IMPRESSION: See below IMPRESSION: 1. Large hiatal hernia containing the majority of the stomach which is within the RIGHT hemithorax, chronicity uncertain. There is evidence of a perforated viscus was large volume pneumoperitoneum. The point of perforation is not readily identifiable. Findings may be related to gastric volvulus secondary to large hiatal hernia although delineation of stomach anatomy is limited secondary to lack contrast and motion artifact. Additionally there is a questionable soft tissue mass in the region of the cecum with right pericolonic extraluminal gas. Small volume pelvic ascites, likely reactive. Recommend emergent surgical consultation. 2. Significant right lower lobe consolidation with small bilateral pleural effusion, possibly atelectasis or infection. 3. Multiple additional incidental findings as above. Findings discussed with Dr. Sheehan at 1333 hours on 06/04/2020. Chest CT 06/04/20 11:42 IMPRESSION: See below IMPRESSION: 1. Large hiatal hernia containing the majority of the stomach which is within the RIGHT hemithorax, chronicity uncertain. There is evidence of a perforated viscus was large volume pneumoperitoneum. The point of perforation is not readily identifiable. Findings may be related to gastric volvulus secondary to large hiatal hernia although delineation of stomach anatomy is limited secondary to lack contrast and motion artifact. Additionally there is a questionable soft tissue mass in the region of the cecum with right pericolonic extraluminal gas. Small volume pelvic ascites, likely reactive. Recommend emergent surgical consultation. 2. Significant right lower lobe consolidation with small bilateral pleural effusion, possibly atelectasis or infection. 3. Multiple additional incidental findings as above. Findings discussed with Dr. Sheehan at 1333 hours on 06/04/2020. KUB X-Ray 06/04/20 18:25 IMPRESSION: Nasogastric tube in the stomach. 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 Now with altered mental status, poor pulmonary function, and nutrition. Recommendations: 1. I have discussed this patient with delivery technician, and nursing staff. This patient has an extremely poor prognosis, and will likely not survive this hospitalization due to her current non-improving condition, despite optimal medical and surgical therapy, superimposed on her comorbidities including malnutrition. 2. Patient's CODE STATUS needs to be addressed; she should be made a DO NOT RESUSCITATE, and care shifted to palliative care mode. I discussed this with the delivery technician, and hospitalist today, Maggie Garcia. (2) Metabolic acidosis Is this a current diagnosis for this admission?: Yes (3) Dehydration Is this a current diagnosis for this admission?: Yes (4) Oliguria Is this a current diagnosis for this admission?: Yes - Time Anticipated Discharge Disposition: Home, Self Care Anticipated Discharge Timeframe: within 48 hours
[2020-06-14 11:36] LABS: HEMATOCRIT 29.8 % (36.0-47.0); HEMOGLOBIN 8.7 g/dL (12.0-15.5); MEAN CORPUSCULAR HEMOGLOBIN 23.1 pg (27.0-33.4); MEAN CORPUSCULAR HGB CONC 29.2 g/dL (32.0-36.0); MEAN CORPUSCULAR VOLUME 79 fl (80-97); PLATELET COUNT 294 10^3/uL (150-450); RED BLOOD COUNT 3.75 10^6/uL (3.72-5.28); RED CELL DISTRIBUTION WIDTH 18.8 % (11.5-14.0)
[2020-06-14] MEDS ORDERED: DEXTROSE 5%-1/2 NORMAL SALINE 1,000 ML IV PRN (11:39)
[2020-06-14] MEDS ORDERED: 1/2 NORMAL SALINE 1,000 ML IV PRN ×2 (11:43→22:36)
[2020-06-14 12:06] LABS: WHITE BLOOD COUNT 31.5 10^3/uL (4.0-10.5)
--- NOTE | 2020-06-14 14:20 | RADIOLOGY REPORT (SQ) ---
EXAM DESCRIPTION: CT HEAD WITHOUT IMAGES COMPLETED DATE/TIME: 06/14/2020 2:02 pm REASON FOR STUDY: dysarthria COMPARISON: None. TECHNIQUE: Axial images acquired through the brain without intravenous contrast. Images reviewed wit h bone, brain and subdural windows. Images stored on PACS. All CT scanners at this facility use dose modulation, iterative reconstruction, and/or weight based d osing when appropriate to reduce radiation dose to as low as reasonably achievable (ALARA). [facility]: Dose Right [facility]: CareDose [facility]: Dose Right [facility]: Teradose 4D [facility]: [email or web address] RADIATION DOSE: CT Rad equipment meets quality standard of care and radiation dose reduction techniq ues were employed. CTDIvol: 48.9 - 50.0 mGy. DLP: 1891 mGy-cm.. LIMITATIONS: Motion artifact FINDINGS: VENTRICLES: Normal size and contour. CEREBRUM: No masses. No hemorrhage. No midline shift. Age appropriate white matter. No evidence for a cute infarction. CEREBELLUM: No masses. No hemorrhage. No alteration of density. No evidence for acute infarction. EXTRA-AXIAL SPACES: No fluid collections. ORBITS AND GLOBE: No intra- or extraconal masses. Normal contour of globe without masses. CALVARIUM: No fracture. PARANASAL SINUSES: No fluid or mucosal thickening. SOFT TISSUES: No mass or hematoma. OTHER: No other significant finding. IMPRESSION: No acute findings identified. Motion artifact. EVIDENCE OF ACUTE STROKE: NO. TECHNICAL DOCUMENTATION: JOB ID: [id number] [place]-72 Quality ID # [id number]: Final reports with documentation of one or more dose reduction techniques (e.g., Au tomated exposure control, adjustment of the mA and/or kV according to patient size, use of iterative reconstruction technique) 2010 [employer]- All Rights Reserved Reading location - IP/workstation name: [email or web address]
--- NOTE | 2020-06-14 16:39 | PDOC CRITICAL CARE PROG REPORT ---
General Date:: 06/14/20 ICU Day:: Hospital Day:: 10 Resuscitation Status: Full Code Events in the past 12 to 24 Hours:: This morbidly obese 79-year-old female presented to [facility] emergency department on 06/04/2020 with complaints of pain all over for a week. She was evaluated by Dr. Morales, and the decision was made to go to the operating theater. She underwent exploratory laparotomy with subsequent identification of perforated viscus. 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 06/08: Extubated this AM. 06/09: Remains extubated. Off norepinephrine. WBC 25.9 this AM. On Unasyn (per surgery) and Rocephin. E. coli (pansensitive) isolated from urine (06/04). 06/10: Had a run of SVT, heart rate 180s to 190s. This was effectively treated with adenosine 6 mg IV single dose. 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 This was addressed with Lopressor 2.5 mg IV. Today, on BiPAP, FiO2 45%. Awake, alert. Mildly disoriented. Family has suspicion of underlying baseline dementia. Continues to have copious clear serous drainage from incisional wound. WBC 25.9>19.2. Creatinine 2.8. She is on Unasyn for perioperative antibiotic prophylaxis (possible abdominal sepsis) and treatment of E. coli UTI. 06/11: No events reported overnight. Got 25 g albumin followed by furosemide 80 mg IV single dose yesterday, in an attempt to mobilize third spaced fluids. She is tolerating chest percussion therapy. Creatinine 2.7, slightly better today. WBC 19.218.7. Continues on Unasyn. 06/12: No repeat events reported overnight. WBC 18.7>26.8. Serosanguineous drainage from abdominal incision has turned yellow and cloudy, almost creamy. She is tolerating chest percussion therapy. Able to spend time off BiPAP, on nasal cannula. Creatinine 2.6 today. 06/13: No events reported overnight. WBC continues to climb, 32.5. Now having turbid, cloudy yellow drainage from abdominal incision. Otherwise, continuing to do well postoperatively. Tolerating nasal cannula (4 LPM) during the day. BiPAP at night. Creatinine 2.5. Case discussed with Dr. Last, who agrees she should start on tube feeds. 06/14: No events reported overnight. Hemodynamically, continues to do well; however, WBC continues to climb, 35.3. Also, she is noted to be much slower with her speech than previously. Follows commands. On empiric Rocephin/Flagyl/vancomycin/fluconazole after serous drainage from abdominal incision wound became cloudy/turbid. Wound culture isolated Sharee albicans. Urine culture isolated E. coli (pansensitive). Blood cultures (06/04) showed no growth to date. Will start on TPN today. Review of systems relevant to events:: Pulmonary, GI. Reason for ICU Addmission:: Perforated abdominal viscus, SIRS/Sepsis. Now intubated and on levophed post op. - Medications: Medications reviewed and adjusted accordingly: Yes Vasopressors:: None Physical Exam Vital Signs: Temp Pulse Resp BP Pulse Ox 97.9 F 68 20 128/45 H 97 06/13/20 22:00 06/14/20 08:36 06/14/20 08:36 06/14/20 06:01 06/14/20 08:36 Intake & Output 06/13/20 06/14/20 06/15/20 06:59 06:59 06:59 Intake Total 1500 2194 Output Total 855 950 Balance 645 1244 Weight 84.9 kg 86.1 kg Weight/Height Weight 86.1 kg Height 1.6 m Laboratory/Radiographs Laboratory Results: 06/13/20 18:08 06/14/20 06:35 06/13/20 06/13/20 06/13/20 09:23 18:08 18:08 WBC 32.5 H* 35.3 H* RBC 3.76 3.64 L Hgb 8.7 L 8.6 L Hct 29.5 L 28.8 L MCV 78 L 79 L MCH 23.1 L 23.6 L MCHC 29.4 L 29.9 L RDW 18.8 H 19.0 H Plt Count 285 304 Sodium Potassium Chloride Carbon Dioxide Anion Gap BUN Creatinine Est GFR ( Amer) Glucose Calcium Phosphorus Magnesium 2.4 H Total Bilirubin AST Alkaline Phosphatase Total Protein Albumin Prealbumin Triglycerides 159 H 06/14/20 06:35 WBC RBC Hgb Hct MCV MCH MCHC RDW Plt Count Sodium 147.6 H Potassium 4.0 Chloride 117 H Carbon Dioxide 20 L Anion Gap 11 BUN 68 H Creatinine 2.15 H Est GFR ( Amer) 27 L Glucose 175 H Calcium 7.9 L Phosphorus 4.5 Magnesium Total Bilirubin 1.8 H AST 26 Alkaline Phosphatase 55 Total Protein 4.3 L Albumin 2.3 L Prealbumin 7.3 L Triglycerides 06/07/20 06/07/20 06/07/20 06:15 10:52 17:07 CK-MB (CK-2) 1.44 Troponin I 1.110 1.080 0.929 Impressions: Abdomen CT 06/04/20 11:42 IMPRESSION: See below IMPRESSION: 1. Large hiatal hernia containing the majority of the stomach which is within the RIGHT hemithorax, chronicity uncertain. There is evidence of a perforated viscus was large volume pneumoperitoneum. The point of perforation is not readily identifiable. Findings may be related to gastric volvulus secondary to large hiatal hernia although delineation of stomach anatomy is limited secondary to lack contrast and motion artifact. Additionally there is a questionable soft tissue mass in the region of the cecum with right pericolonic extraluminal gas. Small volume pelvic ascites, likely reactive. Recommend emergent surgical consultation. 2. Significant right lower lobe consolidation with small bilateral pleural effusion, possibly atelectasis or infection. 3. Multiple additional incidental findings as above. Findings discussed with Dr. Sheehan at 1333 hours on 06/04/2020. Chest CT 06/04/20 11:42 IMPRESSION: See below IMPRESSION: 1. Large hiatal hernia containing the majority of the stomach which is within the RIGHT hemithorax, chronicity uncertain. There is evidence of a perforated viscus was large volume pneumoperitoneum. The point of perforation is not readily identifiable. Findings may be related to gastric volvulus secondary to large hiatal hernia although delineation of stomach anatomy is limited secondary to lack contrast and motion artifact. Additionally there is a questionable soft tissue mass in the region of the cecum with right pericolonic extraluminal gas. Small volume pelvic ascites, likely reactive. Recommend emergent surgical consultation. 2. Significant right lower lobe consolidation with small bilateral pleural effusion, possibly atelectasis or infection. 3. Multiple additional incidental findings as above. Findings discussed with Dr. Sheehan at 1333 hours on 06/04/2020. KUB X-Ray 06/04/20 18:25 IMPRESSION: Nasogastric tube in the stomach. Chest X-Ray 06/10/20 04:00 IMPRESSION: Small bilateral pleural effusions Left lower lobe collapse/ consolidation Free intraperitoneal air Assessment and Plan - Diagnosis (1) Acute respiratory failure Qualifiers: Respiratory failure complication: hypoxia Qualified Code(s): J96.01 - Acute respiratory failure with hypoxia Is this a current diagnosis for this admission?: Yes Plan: * CPAP/BiPAP as needed. * Check CVP. If elevated, diurese. 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 Now with altered mental status, poor pulmonary function, and nutrition. Recommendations: 1. I have discussed this patient with pararescue craftsman, and nursing staff. This patient has an extremely poor prognosis, and will likely not survive this hospitalization due to her current non-improving condition, despite optimal medical and surgical therapy, superimposed on her comorbidities including malnutrition. 2. Patient's CODE STATUS needs to be addressed; she should be made a DO NOT RESUSCITATE, and care shifted to palliative care mode. I discussed this with the pararescue craftsman, and hospitalist today, Maggie Garcia. (4) Wound infection Is this a current diagnosis for this admission?: Yes Plan: * Wound culture (06/12) slated Sharee albicans. * On Rocephin/Flagyl/vancomycin/fluconazole. (5) E. coli UTI Is this a current diagnosis for this admission?: Yes Plan: * Continue Rocephin (6) Dehydration Is this a current diagnosis for this admission?: Yes Plan: * Change IV fluids to 1/2 saline at 80 mL/h (7) Oliguria Is this a current diagnosis for this admission?: Yes Plan: * IV fluids as indicated above. * Monitor urine output. (8) Dysarthria Is this a current diagnosis for this admission?: Yes Plan: * Without obvious lateralizing sign on neurological exam. * CT head without contrast to rule out stroke. * In light of this development after broadening antibiotic coverage, I do suspect this could be a cephalosporin related encephalopathy. (9) Shock Is this a current diagnosis for this admission?: Yes Plan Summary: * Daughter (Martha) was updated at the bedside. She has been speaking with her other sisters (Judie, Carmenza) who live farther away ([place], [place]). She is proclaiming that she is the "healthcare decision maker" while one of her other sisters holds legal power or attorney lawyer (but not healthcare power of attorney lawyer). I explained to Martha that in the absence of formal documentation that establishes healthcare power of attorney lawyer, state law would mandate majority we will determined by the opinions of the 3 living siblings. Martha interjected that her sisters have already determined that she should be in charge of making healthcare related decisions. However, this is somewhat problematic as she also divulged that she could not allow her mother to because this would mean that she would have to seek gainful employment, which she believes is impossible, given her healthcare issues. In any case, she continues to stipulate that the patient should remain full code. * Should be ready to transfer to [facility] tomorrow. Critical Time Critical Time (minutes): 60 Level of Care: ICU -: 1. The care of a critical patient is a dynamic process. This note is a floor representative synopsis but static in nature. The timeframe for treatments given in order is not necessarily the actual time these treatments may have been done. 2. This patient requires critical care secondary to ongoing requirements for therapy not offered or safe outside the critical care environment. Transfer to a lower level of care will result in altered life or limb morbidity and mortality. 3. Multidisciplinary rounds completed. 4. ABCDE bundle addressed.
--- NOTE | 2020-06-14 17:21 | EKG REPORT ---
SEVERITY:- ABNORMAL ECG - SINUS RHYTHM LOW VOLTAGE IN FRONTAL LEADS CONSIDER ANTERIOR INFARCT NONSPECIFIC T ABNORMALITIES, LATERAL LEADS : Confirmed by: Zee Walker MD 14-Jun-2020 17:21:44
[2020-06-14] MEDS: CEFTRIAXONE 1 GM/D5W RTU 1 GM/50 ML RTUPB IV SCH (17:30)
[2020-06-14] MEDS: AMINO ACIDS 5 %/DEXTROSE 20 % 1,000 ML IV PRN (21:18)
[2020-06-14] MEDS: FAMOTIDINE INJ/PF 20 MG/2 ML SDV IV SCH (21:21)
[2020-06-14] MEDS: VANCOMYCIN HCL 500 MG in DEXTROSE 5%-WATER 100 ML IV SCH (22:26)
[2020-06-15] MEDS: MORPHINE SULFATE 10 MG/ML INJ IV PRN (03:15)
[2020-06-15] MEDS: METRONIDAZOLE 500 MG/NS RTU 500 MG/100 ML RTUPB IV SCH ×4 (03:15→22:08)
[2020-06-15] MEDS: INSULIN REG, HUMAN 100 UNIT/ML 3 ML VIAL (PYX) SUBCUT SCH ×3 (05:59→18:19)
[2020-06-15 06:29] LABS: ALBUMIN 1.9 g/dL (3.5-5.0); ALKALINE PHOSPHATASE 63 U/L (38-126); ANION GAP 7 (5-19); ASPARTATE AMINO TRANSFERASE 21 U/L (14-36); BILIRUBIN,DIRECT 1.2 mg/dL (0.0-0.4); BILIRUBIN,TOTAL 1.4 mg/dL (0.2-1.3); BLOOD UREA NITROGEN 64 mg/dL (7-20); CALCIUM 7.7 mg/dL (8.4-10.2); CARBON DIOXIDE 21 mmol/L (22-30); CHLORIDE 117 mmol/L (98-107); GLUCOSE 311 mg/dL (75-110); PHOSPHORUS 3.5 mg/dL (2.5-4.5); POTASSIUM 3.6 mmol/L (3.6-5.0); TOTAL PROTEIN 3.9 g/dL (6.3-8.2)
[2020-06-15 06:36] LABS: PREALBUMIN 7.7 mg/dL (17.6-36.0)
--- NOTE | 2020-06-15 08:12 | RADIOLOGY REPORT (SQ) ---
EXAM DESCRIPTION: CHEST SINGLE VIEW IMAGES COMPLETED DATE/TIME: 06/15/2020 8:00 am REASON FOR STUDY: Pneumonia COMPARISON: 06/10/2020. EXAM PARAMETERS: NUMBER OF VIEWS: One view. TECHNIQUE: Single frontal radiographic view of the chest acquired. RADIATION DOSE: NA LIMITATIONS: None. FINDINGS: LUNGS AND PLEURA: Bilateral pleural effusions and bilateral lower lobe airspace disease, l eft greater than right, unchanged. MEDIASTINUM AND HILAR STRUCTURES: No masses. Contour normal. HEART AND VASCULAR STRUCTURES: Heart upper limits of normal in size. Normal vasculature. BONES: No acute findings. HARDWARE: Central line. OTHER: No other significant finding. IMPRESSION: NO SIGNIFICANT CHANGE IN APPEARANCE OF THE CHEST. TECHNICAL DOCUMENTATION: JOB ID: [id number] 2010 [employer]- All Rights Reserved Reading location - IP/workstation name: [email or web address]
[2020-06-15] MEDS ORDERED: FLUCONAZOLE 400 MG/NS RTU 400 MG/200 ML RTUPB IV SCH (10:00)
[2020-06-15] MEDS: FLUCONAZOLE 200 MG/NS RTU 200 MG/100 ML RTUPB IV SCH (10:52)
[2020-06-15] MEDS: DEXAMETHASONE SOD PHOSPHATE INJ 4 MG/1 ML VIAL IV SCH (10:53)
[2020-06-15] MEDS: VANCOMYCIN HCL 750 MG in DEXTROSE 5%-WATER 250 ML IV SCH (10:53)
[2020-06-15] MEDS: ENOXAPARIN SODIUM INJ 30 MG/0.3 ML DISP.SYRIN SUBCUT SCH (10:53)
[2020-06-15] MEDS: NYSTATIN TOPICAL POWDER 15 GM TP SCH ×2 (10:54→18:20)
--- NOTE | 2020-06-15 11:21 | PDOC PROGRESS REPORT ---
Subjective Date:: 06/15/20 Reason For Visit: PERFORATED CECUM Patient remains in the ICU, extubated; following simple commands; no pressor support Physical Exam Vital Signs: Temp Pulse Resp BP Pulse Ox 98.1 F 63 23 H 168/62 H 99 06/15/20 10:00 06/15/20 09:15 06/15/20 11:14 06/15/20 10:01 06/15/20 11:14 Intake & Output 06/14/20 06/15/20 06/16/20 06:59 06:59 06:59 Intake Total 2294 400 Output Total 950 1205 300 Balance 1344 -805 -300 Weight 86.1 kg 87.3 kg General appearance: PRESENT: other - Arouses and follows simple commands intermittently GI/Abdominal exam: PRESENT: other - Abdomen examined. Seropurulent discharge from midline wound; all chelsea removed, wound irrigated thoroughly. PDS fascial sutures intact. No granulation tissue. Results Laboratory Results: 06/14/20 09:41 06/15/20 05:35 06/14/20 06/15/20 09:41 05:35 WBC 31.5 H* RBC 3.75 Hgb 8.7 L Hct 29.8 L MCV 79 L MCH 23.1 L MCHC 29.2 L RDW 18.8 H Plt Count 294 Sodium 145.0 Potassium 3.6 Chloride 117 H Carbon Dioxide 21 L Anion Gap 7 BUN 64 H Creatinine 1.70 H Est GFR ( Amer) 35 L Glucose 311 H Calcium 7.7 L Phosphorus 3.5 Total Bilirubin 1.4 H AST 21 Alkaline Phosphatase 63 Total Protein 3.9 L Albumin 1.9 L Prealbumin 7.7 L 06/07/20 06/07/20 06/07/20 06:15 10:52 17:07 CK-MB (CK-2) 1.44 Troponin I 1.110 1.080 0.929 Impressions: Abdomen CT 06/04/20 11:42 IMPRESSION: See below IMPRESSION: 1. Large hiatal hernia containing the majority of the stomach which is within the RIGHT hemithorax, chronicity uncertain. There is evidence of a perforated viscus was large volume pneumoperitoneum. The point of perforation is not readily identifiable. Findings may be related to gastric volvulus secondary to large hiatal hernia although delineation of stomach anatomy is limited secondary to lack contrast and motion artifact. Additionally there is a questionable soft tissue mass in the region of the cecum with right pericolonic extraluminal gas. Small volume pelvic ascites, likely reactive. Recommend emergent surgical consultation. 2. Significant right lower lobe consolidation with small bilateral pleural effusion, possibly atelectasis or infection. 3. Multiple additional incidental findings as above. Findings discussed with Dr. Sheehan at 1333 hours on 06/04/2020. Chest CT 06/04/20 11:42 IMPRESSION: See below IMPRESSION: 1. Large hiatal hernia containing the majority of the stomach which is within the RIGHT hemithorax, chronicity uncertain. There is evidence of a perforated viscus was large volume pneumoperitoneum. The point of perforation is not readily identifiable. Findings may be related to gastric volvulus secondary to large hiatal hernia although delineation of stomach anatomy is limited secondary to lack contrast and motion artifact. Additionally there is a questionable soft tissue mass in the region of the cecum with right pericolonic extraluminal gas. Small volume pelvic ascites, likely reactive. Recommend emergent surgical consultation. 2. Significant right lower lobe consolidation with small bilateral pleural effusion, possibly atelectasis or infection. 3. Multiple additional incidental findings as above. Findings discussed with Dr. Sheehan at 1333 hours on 06/04/2020. KUB X-Ray 06/04/20 18:25 IMPRESSION: Nasogastric tube in the stomach. Head CT 06/14/20 00:00 IMPRESSION: No acute findings identified. Motion artifact. EVIDENCE OF ACUTE STROKE: NO. Chest X-Ray 06/15/20 00:00 IMPRESSION: NO SIGNIFICANT CHANGE IN APPEARANCE OF THE CHEST. Assessment & Plan - Diagnosis (1) Cecal perforation with cancer Is this a current diagnosis for this admission?: Yes Plan: Impression: No significant change in 79-year-old with perforated high-grade malignancy, peritonitis, status post ex lap, right colectomy 11 days ago; persisting leukocytosis, mild metabolic acidosis, malnutrition; patient remains a full code. Recommendations: 1. Continue TPN 2. Dressing changes as demonstrated at bedside today 3. We will continue to follow patient with you. (2) Metabolic acidosis Is this a current diagnosis for this admission?: Yes (3) Dehydration Is this a current diagnosis for this admission?: Yes (4) Oliguria Is this a current diagnosis for this admission?: Yes - Time Anticipated Discharge Disposition: Home, Self Care Anticipated Discharge Timeframe: within 24 hours
[2020-06-15] MEDS: ALBUMIN HUMAN 12.5 GM/50 ML RTUINJ IV SCH ×4 (12:36→14:25)
--- NOTE | 2020-06-15 15:55 | PDOC CRITICAL CARE PROG REPORT ---
General Date:: 06/15/20 ICU Day:: 11 Hospital Day:: 11 Resuscitation Status: Full Code Events in the past 12 to 24 Hours:: This morbidly obese 79-year-old female presented to [facility] emergency department on 06/04/2020 with complaints of pain all over for a week. She was evaluated by Dr. Morales, and the decision was made to go to the operating theater. She underwent exploratory laparotomy with subsequent identification of perforated viscus. 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 06/08: Extubated this AM. 06/09: Remains extubated. Off norepinephrine. WBC 25.9 this AM. On Unasyn (per surgery) and Rocephin. E. coli (pansensitive) isolated from urine (06/04). 06/10: Had a run of SVT, heart rate 180s to 190s. This was effectively treated with adenosine 6 mg IV single dose. However, the patient apparently had additional episodes during manager hris. This was addressed with Lopressor 2.5 mg IV. Today, on BiPAP, FiO2 45%. Awake, alert. Mildly disoriented. Family has suspicion of underlying baseline dementia. Continues to have copious clear serous drainage from incisional wound. WBC 25.9>19.2. Creatinine 2.8. She is on Unasyn for perioperative antibiotic prophylaxis (possible abdominal sepsis) and treatment of E. coli UTI. 06/11: No events reported overnight. Got 25 g albumin followed by furosemide 80 mg IV single dose yesterday, in an attempt to mobilize third spaced fluids. She is tolerating chest percussion therapy. Creatinine 2.7, slightly better today. WBC 19.218.7. Continues on Unasyn. 06/12: No repeat events reported overnight. WBC 18.7>26.8. Serosanguineous drainage from abdominal incision has turned yellow and cloudy, almost creamy. She is tolerating chest percussion therapy. Able to spend time off BiPAP, on nasal cannula. Creatinine 2.6 today. 06/13: No events reported overnight. WBC continues to climb, 32.5. Now having turbid, cloudy yellow drainage from abdominal incision. Otherwise, continuing to do well postoperatively. Tolerating nasal cannula (4 LPM) during the day. BiPAP at night. Creatinine 2.5. Case discussed with Dr. Last, who agrees she should start on tube feeds. 06/14: No events reported overnight. Hemodynamically, continues to do well; however, WBC continues to climb, 35.3. Also, she is noted to be much slower with her speech than previously. Follows commands. On empiric Rocephin/Flagyl/vancomycin/fluconazole after serous drainage from abdominal incision wound became cloudy/turbid. Wound culture isolated Sharee albicans. Urine culture isolated E. coli (pansensitive). Blood cultures (06/04) showed no growth to date. Will start on TPN today. 06/15: Had bradycardic episodes overnight, particularly with NT suctioning. Started on TPN in the interim. WBC 35.331.5. On Rocephin/Flagy l/vancomycin/fluconazole. Chest x-ray this morning shows bilateral veiling opacities. Albumin 1.9. Review of systems relevant to events:: Pulmonary, GI. Reason for ICU Addmission:: Perforated abdominal viscus, SIRS/Sepsis. Now intubated and on levophed post op. - Medications: Medications reviewed and adjusted accordingly: Yes Vasopressors:: None Physical Exam Vital Signs: Temp Pulse Resp BP Pulse Ox 98.1 F 63 27 H 168/62 H 89 L 06/15/20 10:00 06/15/20 09:15 06/15/20 10:01 06/15/20 10:01 06/15/20 10:01 Intake & Output 06/14/20 06/15/20 06/16/20 06:59 06:59 06:59 Intake Total 2294 400 Output Total 950 1205 300 Balance 1344 -805 -300 Weight 86.1 kg 87.3 kg Weight/Height Weight 87.3 kg Height 1.6 m General appearance: PRESENT: no acute distress, morbidly obese, well-developed, well-nourished Head exam: PRESENT: atraumatic, normocephalic Eye exam: PRESENT: conjunctiva pink, EOMI, PERRLA. ABSENT: scleral icterus Mouth exam: PRESENT: moist, tongue midline Respiratory exam: PRESENT: crackles, decreased breath sounds. ABSENT: rales, rhonchi, wheezes Cardiovascular exam: PRESENT: RRR. ABSENT: diastolic murmur, rubs, systolic murmur Pulses: PRESENT: normal dorsalis pedis pul GI/Abdominal exam: PRESENT: hypoactive bowel sounds, soft, other - Surgical incision site draining copious amounts of creamy yellow fluid. ABSENT: distended, guarding, mass, organolmegaly, rebound, tenderness Gentrourinary exam: PRESENT: indwelling catheter Extremities exam: PRESENT: full ROM, pedal edema. ABSENT: calf tenderness, clubbing Neurological exam: PRESENT: alert, awake Psychiatric exam: ABSENT: agitated, anxious Skin exam: PRESENT: dry, intact, warm. ABSENT: cyanosis, rash Tubes/Lines: PRESENT: Central Line Laboratory/Radiographs Laboratory Results: 06/14/20 09:41 06/15/20 05:35 06/14/20 06/15/20 09:41 05:35 WBC 31.5 H* RBC 3.75 Hgb 8.7 L Hct 29.8 L MCV 79 L MCH 23.1 L MCHC 29.2 L RDW 18.8 H Plt Count 294 Sodium 145.0 Potassium 3.6 Chloride 117 H Carbon Dioxide 21 L Anion Gap 7 BUN 64 H Creatinine 1.70 H Est GFR ( Amer) 35 L Glucose 311 H Calcium 7.7 L Phosphorus 3.5 Total Bilirubin 1.4 H AST 21 Alkaline Phosphatase 63 Total Protein 3.9 L Albumin 1.9 L Prealbumin 7.7 L 06/07/20 06/07/20 06/07/20 06:15 10:52 17:07 CK-MB (CK-2) 1.44 Troponin I 1.110 1.080 0.929 Impressions: Abdomen CT 06/04/20 11:42 IMPRESSION: See below IMPRESSION: 1. Large hiatal hernia containing the majority of the stomach which is within the RIGHT hemithorax, chronicity uncertain. There is evidence of a perforated viscus was large volume pneumoperitoneum. The point of perfo ration is not readily identifiable. Findings may be related to gastric volvulus secondary to large hiatal hernia although delineation of stomach anatomy is limited secondary to lack contrast and motion artifact. Additionally there is a questionable soft tissue mass in the region of the cecum with right pericolonic extraluminal gas. Small volume pelvic ascites, likely reactive. Recommend emergent surgical consultation. 2. Significant right lower lobe consolidation with small bilateral pleural effusion, possibly atelectasis or infection. 3. Multiple additional incidental findings as above. Findings discussed with Dr. Sheehan at 1333 hours on 06/04/2020. Chest CT 06/04/20 11:42 IMPRESSION: See below IMPRESSION: 1. Large hiatal hernia containing the majority of the stomach which is within the RIGHT hemithorax, chronicity uncertain. There is evidence of a perforated viscus was large volume pneumoperitoneum. The point of perforation is not readily identifiable. Findings may be related to gastric volvulus secondary to large hiatal hernia although delineation of stomach anatomy is limited secondary to lack contrast and motion artifact. Additionally there is a questionable soft tissue mass in the region of the cecum with right pericolonic extraluminal gas. Small volume pelvic ascites, likely reactive. Recommend emergent surgical consultation. 2. Significant right lower lobe consolidation with small bilateral pleural effusion, possibly atelectasis or infection. 3. Multiple additional incidental findings as above. Findings discussed with Dr. Sheehan at 1333 hours on 06/04/2020. KUB X-Ray 06/04/20 18:25 IMPRESSION: Nasogastric tube in the stomach. Head CT 06/14/20 00:00 IMPRESSION: No acute findings identified. Motion artifact. EVIDENCE OF ACUTE STROKE: NO. Chest X-Ray 06/15/20 00:00 IMPRESSION: NO SIGNIFICANT CHANGE IN APPEARANCE OF THE CHEST. All labs, radiographs, diagnostic studies and EKGs were personally reviewed: Yes In addition, reports of radiographic and diagnostic studies were read: Yes Assessment and Plan - Diagnosis (1) Acute respiratory failure Qualifiers: Respiratory failure complication: hypoxia Qualified Code(s): J96.01 - Acute respiratory failure with hypoxia Is this a current diagnosis for this admission?: Yes Plan: * CPAP/BiPAP as needed. * Albumin 50 g IV followed by furosemide 40 mg IV single dose. * Follow CVP. May need to continue to diurese. (2) Bilateral pleural effusion Is this a current diagnosis for this admission?: Yes Plan: * Likely, primarily related to her hypoalbuminemic state, her postoperative stat e and volume overload. * Albumin 50 mg IV followed by furosemide 40 mg IV single dose today. (3) Renal function impairment Is this a current diagnosis for this admission?: Yes Plan: * We have no previous history on this patient to establish her baseline renal function; however, with ongoing treatment, her renal function appears to be improving. * Probably acute on chronic kidney disease. (4) Atelectasis pulmonary Is this a current diagnosis for this admission?: Yes (5) Cecal perforation with cancer Is this a current diagnosis for this admission?: Yes (6) Wound infection Is this a current diagnosis for this admission?: Yes Plan: * Wound culture (06/12) isolated Sharee albicans. * On Rocephin/Flagyl/vancomycin/fluconazole. (7) E. coli UTI Is this a current diagnosis for this admission?: Yes (8) Dehydration Is this a current diagnosis for this admission?: Yes (9) Oliguria Is this a current diagnosis for this admission?: Yes (10) Dysarthria Is this a current diagnosis for this admission?: Yes (11) Shock Is this a current diagnosis for this admission?: Yes Critical Time Critical Time (minutes): 45 Level of Care: ICU -: 1. The care of a critical patient is a dynamic process. This note is a account executive sales representative synopsis but static in nature. The timeframe for treatments given in order is not necessarily the actual time these treatments may have been done. 2. This patient requires critical care secondary to ongoing requirements for therapy not offered or safe outside the critical care environment. Transfer to a lower level of care will result in altered life or limb morbidity and mortality. 3. Multidisciplinary rounds completed. 4. ABCDE bundle addressed.
[2020-06-15] MEDS ORDERED: FUROSEMIDE INJ/PF 40 MG/4 ML SDV IV ONE (17:00)
[2020-06-15] MEDS ORDERED: DEXTROSE 40% GEL 15 GM TUBE PO PRN ×2 (17:42)
[2020-06-15] MEDS ORDERED: GLUCAGON,HUMAN RECOMB 1 MG INJ IM PRN (17:42)
[2020-06-15] MEDS ORDERED: DEXTROSE 50%-WATER 25 GM/50 ML DISP.SYRIN IV PRN ×2 (17:42)
[2020-06-15] MEDS: CEFTRIAXONE 1 GM/D5W RTU 1 GM/50 ML RTUPB IV SCH (18:20)
[2020-06-15] MEDS: AMINO ACIDS 5 %/DEXTROSE 20 % 1,000 ML IV PRN (21:15)
[2020-06-15] MEDS ORDERED: INSULIN GLARGINE,HUM.REC.ANLOG 1,000 UNIT/10 ML VIAL SUBCUT SCH (22:00)
[2020-06-15] MEDS ORDERED: INSULIN GLARGINE,HUM.REC.ANLOG 1,000 UNIT/10 ML VIAL (PYX) SUBCUT ONE (22:03)
[2020-06-15 22:46] LABS: VANCOMYCIN,TROUGH 13.1 ug/mL (5.0-20.0)
[2020-06-16] MEDS: INSULIN REG, HUMAN 100 UNIT/ML 3 ML VIAL (PYX) SUBCUT SCH ×6 (00:31→23:14)
[2020-06-16] MEDS: MORPHINE SULFATE 10 MG/ML INJ IV PRN ×2 (00:52→05:30)
[2020-06-16] MEDS: METRONIDAZOLE 500 MG/NS RTU 500 MG/100 ML RTUPB IV SCH ×4 (03:12→22:05)
[2020-06-16 06:14] LABS: ALBUMIN 2.3 g/dL (3.5-5.0); ALKALINE PHOSPHATASE 55 U/L (38-126); ANION GAP 8 (5-19); ASPARTATE AMINO TRANSFERASE 19 U/L (14-36); BILIRUBIN,DIRECT 1.1 mg/dL (0.0-0.4); BILIRUBIN,TOTAL 1.5 mg/dL (0.2-1.3); BLOOD UREA NITROGEN 62 mg/dL (7-20); CALCIUM 8.4 mg/dL (8.4-10.2); CARBON DIOXIDE 23 mmol/L (22-30); CHLORIDE 118 mmol/L (98-107); PHOSPHORUS 2.4 mg/dL (2.5-4.5); TOTAL PROTEIN 4.3 g/dL (6.3-8.2)
[2020-06-16 06:16] LABS: POTASSIUM 3.5 mmol/L (3.6-5.0)
[2020-06-16 06:21] LABS: PREALBUMIN 8.5 mg/dL (17.6-36.0)
[2020-06-16 06:23] LABS: GLUCOSE 475 mg/dL (75-110)
[2020-06-16 06:40] LABS: INTERNATIONAL RATION (INR) 1.41; PROTHROMBIN TIME 17.4 SEC (11.4-15.4)
[2020-06-16] MEDS: DEXAMETHASONE SOD PHOSPHATE INJ 4 MG/1 ML VIAL IV SCH (09:57)
[2020-06-16] MEDS ORDERED: FAT EMULSIONS 250 ML IV SCH (10:00)
[2020-06-16] MEDS: NYSTATIN TOPICAL POWDER 15 GM TP SCH ×2 (10:04→17:48)
[2020-06-16] MEDS: ENOXAPARIN SODIUM INJ 30 MG/0.3 ML DISP.SYRIN SUBCUT SCH (10:04)
--- NOTE | 2020-06-16 10:16 | PDOC PROGRESS REPORT ---
Subjective Date:: 06/16/20 Reason For Visit: PERFORATED CECUM Patient examined under BiPAP; follows simple commands. Limited focus Physical Exam Vital Signs: Temp Pulse Resp BP Pulse Ox 98.1 F 62 18 147/72 H 100 06/16/20 08:03 06/16/20 07:00 06/16/20 08:30 06/16/20 08:00 06/16/20 08:30 Intake & Output 06/15/20 06/16/20 06/17/20 06:59 06:59 06:59 Intake Total 450 598 Output Total 1205 2685 250 Balance -755 -2087 -250 Weight 87.3 kg 85.4 kg General appearance: PRESENT: other - Under BiPAP; saturations in the mid 90s. Still in the ICU GI/Abdominal exam: PRESENT: other - Abdominal dressing removed. Significant volume of purulent drainage from the superior aspect of the wound. PDS suture loosening; fascia becoming necrotic Results Laboratory Results: 06/14/20 09:41 06/16/20 05:48 06/16/20 05:48 Sodium 149.0 H Potassium 3.5 L Chloride 118 H Carbon Dioxide 23 Anion Gap 8 BUN 62 H Creatinine 1.28 H Est GFR ( Amer) 49 L Glucose 475 H* Calcium 8.4 Phosphorus 2.4 L Magnesium 2.2 Total Bilirubin 1.5 H AST 19 Alkaline Phosphatase 55 Total Protein 4.3 L Albumin 2.3 L Prealbumin 8.5 L 06/12/20 12:01 Abdomen - Midline Gram Stain - Final 06/12/20 12:01 Abdomen - Midline Wound Culture - Final C.albicans/C.dubliniensis 06/07/20 06/07/20 06/07/20 06:15 10:52 17:07 CK-MB (CK-2) 1.44 Troponin I 1.110 1.080 0.929 Impressions: Abdomen CT 06/04/20 11:42 IMPRESSION: See below IMPRESSION: 1. Large hiatal hernia containing the majority of the stomach which is within the RIGHT hemithorax, chronicity uncertain. There is evidence of a perforated viscus was large volume pneumoperitoneum. The point of perforation is not readily identifiable. Findings may be related to gastric volvulus secondary to large hiatal hernia although delineation of stomach anatomy is limited secondary to lack contrast and motion artifact. Additionally there is a questionable soft tissue mass in the region of the cecum with right pericolonic extraluminal gas. Small volume pelvic ascites, likely reactive. Recommend emergent surgical consultation. 2. Significant right lower lobe consolidation with small bilateral pleural effusion, possibly atelectasis or infection. 3. Multiple additional incidental findings as above. Findings discussed with Dr. Sheehan at 1333 hours on 06/04/2020. Chest CT 06/04/20 11:42 IMPRESSION: See below IMPRESSION: 1. Large hiatal hernia containing the majority of the stomach which is within the RIGHT hemithorax, chronicity uncertain. There is evidence of a perforated viscus was large volume pneumoperitoneum. The point of perforation is not readily identifiable. Findings may be related to gastric volvulus secondary to large hiatal hernia although delineation of stomach glory gage is limited secondary to lack contrast and motion artifact. Additionally there is a questionable soft tissue mass in the region of the cecum with right pericolonic extraluminal gas. Small volume pelvic ascites, likely reactive. Recommend emergent surgical consultation. 2. Significant right lower lobe consolidation with small bilateral pleural effusion, possibly atelectasis or infection. 3. Multiple additional incidental findings as above. Findings discussed with Dr. Sheehan at 1333 hours on 06/04/2020. KUB X-Ray 06/04/20 18:25 IMPRESSION: Nasogastric tube in the stomach. Head CT 06/14/20 00:00 IMPRESSION: No acute findings identified. Motion artifact. EVIDENCE OF ACUTE STROKE: NO. Chest X-Ray 06/15/20 00:00 IMPRESSION: NO SIGNIFICANT CHANGE IN APPEARANCE OF THE CHEST. Assessment & Plan - Diagnosis (1) Cecal perforation with cancer Is this a current diagnosis for this admission?: Yes Plan: Impression: Postoperative day 12 ex lap, right colectomy, for perforated cecal high-grade neuroendocrine tumor with metastatic disease, with unstable midline wound, now draining pus, they have intra-abdominal septic source. Acidosis improved. Recommendations: 1. I discussed the above with nursing staff, and Dr. Gill. Patient has multiple comorbidities with and extremely grim prognosis; acutely she is sick with an unstable midline wound with drainage suspicious for intra-abdominal source. She remains malnourished despite TPN. If patient were to undergo reexploration, she would be ventilatory dependent with her chances of extubation and meaningful survival. 2. I spoke to the patient's daughter, DOLORES, at [id number] for approximately 13 minutes. I brought her up-to-date on the patient's condition, and the immediate issues including marginal respiratory status, unstable wound, uncontrolled sepsis and metastatic high-grade neuroendocrine cancer. Patient's daughter states that her mother has been neglecting her health and denied medical care for over 6 months. I suggested she serve as the healthcare power of sports attorney, and to discuss her mother's situation with her 2 out of town sisters, and seriously consider shifting from therapeutic to palliative care. This would involve making her a DO NOT RESUSCITATE, and not re-exploring her. The patient's daughter states she understands what I am saying, for the most part, and will get back with us later today. 3. I discussed the above conversation highlights with nursing staff. (2) Metabolic acidosis Is this a current diagnosis for this admission?: Yes (3) Dehydration Is this a current diagnosis for this admission?: Yes (4) Oliguria Is this a current diagnosis for this admission?: Yes - Time Anticipated Discharge Disposition: [facility] Facility Anticipated Discharge Timeframe: within 36 hours Time Spent: 30 to 50 Minutes
[2020-06-16 10:53] LABS: PATH REVIEW PATHOLOGIST REVIEWED
[2020-06-16] MEDS: INSULIN GLARGINE,HUM.REC.ANLOG 1,000 UNIT/10 ML VIAL SUBCUT SCH ×2 (11:04→23:14)
[2020-06-16] MEDS: FLUCONAZOLE 200 MG/NS RTU 200 MG/100 ML RTUPB IV SCH (11:05)
[2020-06-16] MEDS: VANCOMYCIN HCL 750 MG in DEXTROSE 5%-WATER 250 ML IV SCH (12:36)
--- NOTE | 2020-06-16 14:34 | PDOC CRITICAL CARE PROG REPORT ---
General Date:: 06/16/20 ICU Day:: 12 Hospital Day:: 12 Resuscitation Status: Full Code Events in the past 12 to 24 Hours:: This morbidly obese 79-year-old female presented to [facility] emergency department on 06/04/2020 with complaints of pain all over for a week. She was evaluated by Dr. Morales, and the decision was made to go to the operating theater. She underwent exploratory laparotomy with subsequent identification of perforated viscus. 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 06/08: Extubated this AM. 06/09: Remains extubated. Off norepinephrine. WBC 25.9 this AM. On Unasyn (per surgery) and Rocephin. E. coli (pansensitive) isolated from urine (06/04). 06/10: Had a run of SVT, heart rate 180s to 190s. This was effectively treated with adenosine 6 mg IV single dose. 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 This was addressed with Lopressor 2.5 mg IV. Today, on BiPAP, FiO2 45%. Awake, alert. Mildly disoriented. Family has suspicion of underlying baseline dementia. Continues to have copious clear serous drainage from incisional wound. WBC 25.9>19.2. Creatinine 2.8. She is on Unasyn for perioperative antibiotic prophylaxis (possible abdominal sepsis) and treatment of E. coli UTI. 06/11: No events reported overnight. Got 25 g albumin followed by furosemide 80 mg IV single dose yesterday, in an attempt to mobilize third spaced fluids. She is tolerating chest percussion therapy. Creatinine 2.7, slightly better today. WBC 19.218.7. Continues on Unasyn. 06/12: No repeat events reported overnight. WBC 18.7>26.8. Serosanguineous drainage from abdominal incision has turned yellow and cloudy, almost creamy. She is tolerating chest percussion therapy. Able to spend time off BiPAP, on nasal cannula. Creatinine 2.6 today. 06/13: No events reported overnight. WBC continues to climb, 32.5. Now having turbid, cloudy yellow drainage from abdominal incision. Otherwise, continuing to do well postoperatively. Tolerating nasal cannula (4 LPM) during the day. BiPAP at night. Creatinine 2.5. Case discussed with Dr. Last, who agrees she should start on tube feeds. 06/14: No events reported overnight. Hemodynamically, continues to do well; however, WBC continues to climb, 35.3. Also, she is noted to be much slower with her speech than previously. Follows commands. On empiric Rocephin/Flagyl/vancomycin/fluconazole after serous drainage from abdominal incision wound became cloudy/turbid. Wound culture isolated Sharee albicans. Urine culture isolated E. coli (pansensitive). Blood cultures (06/04) showed no growth to date. Will start on TPN today. 06/15: Had bradycardic episodes overnight, particularly with NT suctioning. Started on TPN in the interim. WBC 35.331.5. On Rocephin/Flagy l/vancomycin/fluconazole. Chest x-ray this morning shows bilateral veiling opacities. Albumin 1.9. 06/16: Pt is not rallying. Wound is producing murky brown liquid seemingly from a dehiscence. Wound not explored. This, with a high grade neuroendocrine tumor diagnosis makes her recovery seem unlikely. Review of systems relevant to events:: GI Reason for ICU Addmission:: Perforated abdominal viscus from high grade cecal neuroendocrine tumor. Not doing well. - Medications: Medications reviewed and adjusted accordingly: Yes Vasopressors:: None Sedation:: None Physical Exam Vital Signs: Temp Pulse Resp BP Pulse Ox 98.1 F 77 24 H 143/89 H 100 06/16/20 08:03 06/16/20 13:37 06/16/20 12:51 06/16/20 12:00 06/16/20 12:51 Intake & Output 06/15/20 06/16/20 06/17/20 06:59 06:59 06:59 Intake Total 450 948 200 Output Total 1205 2685 550 Balance -250 -3197 -392 Weight 87.3 kg 85.4 kg 85.4 kg Weight/Height Weight 85.4 kg Height 5 ft 3 in General appearance: PRESENT: no acute distress Head exam: PRESENT: atraumatic, normocephalic Eye exam: PRESENT: conjunctiva pink, EOMI, PERRLA. ABSENT: scleral icterus Ear exam: PRESENT: normal external ear exam Mouth exam: ABSENT: dry mucosa, laceration, moist, neck supple, tongue midline, other Neck exam: ABSENT: carotid bruit, JVD, lymphadenopathy, thyromegaly Respiratory exam: PRESENT: clear to auscultation juan carlos, decreased breath sounds. ABSENT: rales, rhonchi, wheezes Cardiovascular exam: PRESENT: RRR. ABSENT: diastolic murmur, rubs, systolic murmur GI/Abdominal exam: PRESENT: soft, tenderness - At incision, other - Wound is open and draining murky brown liquid likely from a dehiscence. ABSENT: distended, guarding, mass, organolmegaly, rebound Rectal exam: PRESENT: deferred Gentrourinary exam: PRESENT: indwelling catheter Extremities exam: PRESENT: full ROM. ABSENT: calf tenderness, clubbing, pedal edema Musculoskeletal exam: PRESENT: normal inspection Neurological exam: PRESENT: alert, altered, awake, CN II-XII grossly intact Skin exam: PRESENT: dry, intact, warm. ABSENT: cyanosis, rash Laboratory/Radiographs Laboratory Results: 06/14/20 09:41 06/16/20 05:48 06/16/20 05:48 Sodium 149.0 H Potassium 3.5 L Chloride 118 H Carbon Dioxide 23 Anion Gap 8 BUN 62 H Creatinine 1.28 H Est GFR ( Amer) 49 L Glucose 475 H* Calcium 8.4 Phosphorus 2.4 L Magnesium 2.2 Total Bilirubin 1.5 H AST 19 Alkaline Phosphatase 55 Total Protein 4.3 L Albumin 2.3 L Prealbumin 8.5 L 06/12/20 12:01 Abdomen - Midline Gram Stain - Final 06/12/20 12:01 Abdomen - Midline Wound Culture - Final C.albicans/C.dubliniensis 06/07/20 06/07/20 06/07/20 06:15 10:52 17:07 CK-MB (CK-2) 1.44 Troponin I 1.110 1.080 0.929 Impressions: Abdomen CT 06/04/20 11:42 IMPRESSION: See below IMPRESSION: 1. Large hiatal hernia containing the majority of the stomach which is within the RIGHT hemithorax, chronicity uncertain. There is evidence of a perforated viscus was large volume pneumoperitoneum. The point of perforation is not readily identifiable. Findings may be related to gastric volvulus secondary to large hiatal hernia although delineation of stomach anatomy is limited secondary to lack contrast and motion artifact. Additionally there is a questionable soft tissue mass in the region of the cecum with right pericolonic extraluminal gas. Small volume pelvic ascites, likely reactive. Re commend emergent surgical consultation. 2. Significant right lower lobe consolidation with small bilateral pleural effusion, possibly atelectasis or infection. 3. Multiple additional incidental findings as above. Findings discussed with Dr. Sheehan at 1333 hours on 06/04/2020. Chest CT 06/04/20 11:42 IMPRESSION: See below IMPRESSION: 1. Large hiatal hernia containing the majority of the stomach which is within the RIGHT hemithorax, chronicity uncertain. There is evidence of a perforated viscus was large volume pneumoperitoneum. The point of perforation is not readily identifiable. Findings may be related to gastric volvulus secondary to large hiatal hernia although delineation of stomach anatomy is limited secondary to lack contrast and motion artifact. Additionally there is a questionable soft tissue mass in the region of the cecum with right pericolonic extraluminal gas. Small volume pelvic ascites, likely reactive. Recommend emergent surgical consultation. 2. Significant right lower lobe consolidation with small bilateral pleural effusion, possibly atelectasis or infection. 3. Multiple additional incidental findings as above. Findings discussed with Dr. Sheehan at 1333 hours on 06/04/2020. KUB X-Ray 06/04/20 18:25 IMPRESSION: Nasogastric tube in the stomach. Head CT 06/14/20 00:00 IMPRESSION: No acute findings identified. Motion artifact. EVIDENCE OF ACUTE STROKE: NO. Chest X-Ray 06/15/20 00:00 IMPRESSION: NO SIGNIFICANT CHANGE IN APPEARANCE OF THE CHEST. All labs, radiographs, diagnostic studies and EKGs were personally reviewed: Yes In addition, reports of radiographic and diagnostic studies were read: Yes Assessment and Plan - Diagnosis (1) Cecal perforation with cancer Is this a current diagnosis for this admission?: Yes Plan: From a neuroendocrine tumor. High grade. The prognosis for a good functional recovery is slim. Dr. Winters has explained this to the daughter this AM. I did witness his portion of the conversation. (2) Dehydration Is this a current diagnosis for this admission?: Yes Plan: Resolved (3) Oliguria Is this a current diagnosis for this admission?: Yes Plan: Resolved. (4) Physical deconditioning Is this a current diagnosis for this admission?: Yes Plan: This too makes a good recovery unlikely. (5) Leukocytosis Qualifiers: Leukocytosis type: other Qualified Code(s): D72.828 - Other elevated white blood cell count Is this a current diagnosis for this admission?: Yes Plan: Her WBC has been about 30K the last few days indicative of the chronic septic like picture. A reoperation and wash out would be required but she will likely not survive. Plan Summary: The family will discuss this among themselves. A DNR and comfort care is an option. Critical Time Critical Time (minutes): 35 Level of Care: ICU Anticipated discharge: Hospice Anticipated DC Timeframe: Other -: 1. The care of a critical patient is a dynamic process. This note is a entry level marketing representative synopsis but static in nature. The timeframe for treatments given in order is not necessarily the actual time these treatments may have been done. 2. This patient requires critical care secondary to ongoing requirements for therapy not offered or safe outside the critical care environment. Transfer to a lower level of care will result in altered life or limb morbidity and mortality. 3. Multidisciplinary rounds completed. 4. ABCDE bundle addressed.
[2020-06-16 17:10] LABS: HEMATOCRIT 30.7 % (36.0-47.0); HEMOGLOBIN 9.6 g/dL (12.0-15.5); MEAN CORPUSCULAR HEMOGLOBIN 24.9 pg (27.0-33.4); MEAN CORPUSCULAR HGB CONC 31.4 g/dL (32.0-36.0); MEAN CORPUSCULAR VOLUME 79 fl (80-97); PLATELET COUNT 284 10^3/uL (150-450); RED BLOOD COUNT 3.87 10^6/uL (3.72-5.28); RED CELL DISTRIBUTION WIDTH 19.6 % (11.5-14.0); WHITE BLOOD COUNT 22.9 10^3/uL (4.0-10.5)
[2020-06-16] MEDS: CEFTRIAXONE 1 GM/D5W RTU 1 GM/50 ML RTUPB IV SCH (17:47)
[2020-06-16] MEDS: AMINO ACIDS 5 %/DEXTROSE 20 % 1,000 ML IV PRN (20:05)
[2020-06-17] MEDS: METRONIDAZOLE 500 MG/NS RTU 500 MG/100 ML RTUPB IV SCH ×4 (03:46→20:38)
[2020-06-17] MEDS ORDERED: INSULIN REG, HUMAN 100 UNIT/ML 3 ML VIAL (PYX) ONE (05:47)
[2020-06-17] MEDS: INSULIN REG, HUMAN 100 UNIT/ML 3 ML VIAL (PYX) SUBCUT SCH ×2 (05:50→12:08)
[2020-06-17 06:30] LABS: BLOOD UREA NITROGEN 57 mg/dL (7-20); CALCIUM 8.5 mg/dL (8.4-10.2); CARBON DIOXIDE 26 mmol/L (22-30); GLUCOSE 368 mg/dL (75-110); HEMATOCRIT 31.7 % (36.0-47.0); HEMOGLOBIN 9.5 g/dL (12.0-15.5); MEAN CORPUSCULAR HEMOGLOBIN 23.7 pg (27.0-33.4); MEAN CORPUSCULAR VOLUME 79 fl (80-97); PLATELET COUNT 200 10^3/uL (150-450); POTASSIUM 3.4 mmol/L (3.6-5.0); RED BLOOD COUNT 4.02 10^6/uL (3.72-5.28); RED CELL DISTRIBUTION WIDTH 19.5 % (11.5-14.0); WHITE BLOOD COUNT 20.7 10^3/uL (4.0-10.5)
[2020-06-17 06:35] LABS: ANION GAP 6 (5-19); CHLORIDE 119 mmol/L (98-107)
[2020-06-17 07:08] LABS: ABSOLUTE LYMPHOCYTES# (MANUAL) 0.2 10^3/uL (0.5-4.7); ABSOLUTE MONOCYTES # (MANUAL) 0.6 10^3/uL (0.1-1.4); ANISOCYTOSIS 2+; BAND NEUTROPHILS % (MANUAL) 2 % (3-5); BASOPHILS % (MANUAL) 0 % (0-2); EOSINOPHILS % (MANUAL) 0 % (0-6); LYMPHOCYTES % (MANUAL) 1 % (13-45); MONOCYTES % (MANUAL) 3 % (3-13); NUCLEATED RED BLOOD CELLS 2 /100 WBC (0); PLATELET COMMENT ADEQUATE; SEGMENTED NEUTROPHILS % (MAN) 94 % (42-78); TOTAL CELLS COUNTED 100
[2020-06-17 07:09] LABS: POIKILOCYTOSIS 2+; TARGET CELLS 2+
[2020-06-17 07:10] LABS: TEAR DROP CELLS 1+
[2020-06-17] MEDS ORDERED: METRONIDAZOLE 500 MG/NS RTU 500 MG/100 ML RTUPB IV ONE (08:56)
[2020-06-17] MEDS ORDERED: DEXAMETHASONE SOD PHOSPHATE INJ 4 MG/1 ML VIAL ONE (09:30)
[2020-06-17] MEDS ORDERED: ENOXAPARIN SODIUM INJ 40 MG/0.4 ML DISP.SYRIN SUBCUT ONE (09:30)
[2020-06-17] MEDS: DEXAMETHASONE SOD PHOSPHATE INJ 4 MG/1 ML VIAL IV SCH (09:34)
[2020-06-17] MEDS: NYSTATIN TOPICAL POWDER 15 GM TP SCH ×2 (09:35→17:51)
[2020-06-17] MEDS: INSULIN GLARGINE,HUM.REC.ANLOG 1,000 UNIT/10 ML VIAL SUBCUT SCH (09:35)
[2020-06-17] MEDS: VANCOMYCIN HCL 750 MG in DEXTROSE 5%-WATER 250 ML IV SCH (09:36)
[2020-06-17] MEDS: ENOXAPARIN SODIUM INJ 30 MG/0.3 ML DISP.SYRIN SUBCUT SCH (10:09)
[2020-06-17] MEDS: FLUCONAZOLE 200 MG/NS RTU 200 MG/100 ML RTUPB IV SCH (10:09)
--- NOTE | 2020-06-17 13:48 | Progress Note ---
Provider Note Provider Note: spoke with pts daughter she and her sisters have decided to change her status to dnr and palliative care. will discuss with Dr. Molina.
--- NOTE | 2020-06-17 14:03 | Progress Note ---
Provider Note Provider Note: Dr. Morales called patient's daughter and obtained a DNR, comfort care designation. I witnessed his side of the conversation.
--- NOTE | 2020-06-17 17:01 | PDOC DISCHARGE SUMMARY ---
Impression - Admit/DC Date/PCP Admission Date/Primary Care Provider: 06/04/20 14:43 Discharge Date: 06/18/20 - Discharge Diagnosis (1) Cecal perforation with cancer Is this a current diagnosis for this admission?: Yes (2) Dehydration Is this a current diagnosis for this admission?: Yes (3) Oliguria Is this a current diagnosis for this admission?: Yes (4) Physical deconditioning Is this a current diagnosis for this admission?: Yes (5) Leukocytosis Is this a current diagnosis for this admission?: Yes - Assessment Summary: This patient is a 79 yo wo0man who presented to the ED on 06/04 with confusion and evidence of an abdominal perforated viscus. She was taken to the OR by Dr. Morales where a R hemicolectomy was done for a perforated cecal cancer. Pathology showed a high grade neuroendocrine tumor with positive margins. She remained intubated for 2 days post-op, was extubated but never rallied. She remained weak, somewhat confused at required bipap most of the time for increased work of breathing and generalized weakness. Her wound broke down and eventually dehisced. There was a fair amount of old blood material which continued to come from the superior portion of the wound. She needed a re- exploration and repair and probably a wash out. She refused further surgery. Given her mental state Dr. Morales contacted her daughter who wanted to make her comfortable but talked to her other sisters. On 06/17/20 she was made comfort care and a DNR and her daughter very much wants to have home hospice to be arranged for 12/23 AM. - Additional Information Resuscitation Status: Full Code Referrals: AVRIL BENOIT MD [ACTIVE STAFF] - (2 weeks after discharge in my office. Please arrange ) Home Medications: No Home Medications 06/04/20 History of Present Illiness History of Present Illness: YENNY FOOTE is a 79 year old [id number] female presented to ED for pain all over for week. She states she has not had any fevers. She states in her abdomen or chest back she hurts everywhere. We did attempt to get her feet temperature and we could not get a temperature to read. The pulse ox that there a pulse was 150 but her apical pulse was 100 O2 sats are very low she does look very anemic. We will take her back to her room promptly pt has not had any significant medical care for last 20yrs. has denied pain to her family for over the last wk. As above. She is still in pain, mostly abdominal and chest. Appears very pale. Hgb 8. To go emergently to OR. Hospital Course Hospital Course: As explained previously she is to go to home hospice 06/18. Physical Exam Vital Signs: Temp Pulse Resp BP Pulse Ox 97.7 F 105 H 35 H 156/75 H 97 06/17/20 16:00 06/17/20 16:00 06/17/20 16:00 06/17/20 16:00 06/17/20 16:00 Intake & Output 06/16/20 06/17/20 06/18/20 06:59 06:59 06:59 Intake Total 998 1050 450 Output Total 2685 1575 285 Balance -1687 -525 165 Weight 85.4 kg 84 kg General appearance: PRESENT: no acute distress, cooperative Head exam: PRESENT: atraumatic, normocephalic Eye exam: PRESENT: conjunctiva pink, EOMI, PERRLA. ABSENT: scleral icterus Ear exam: PRESENT: normal external ear exam Mouth exam: PRESENT: moist, tongue midline Neck exam: ABSENT: carotid bruit, JVD, lymphadenopathy, thyromegaly Respiratory exam: PRESENT: clear to auscultation juan carlos. ABSENT: rales, rhonchi, wheezes Cardiovascular exam: PRESENT: RRR, tachycardia. ABSENT: diastolic murmur, rubs, systolic murmur GI/Abdominal exam: PRESENT: normal bowel sounds, soft, other - Wound still putting out murky fluid C/W old blood from superior portion of wound. Not foul smelling.. ABSENT: distended, guarding, mass, organolmegaly, rebound, tenderness Rectal exam: PRESENT: deferred Gentrourinary exam: PRESENT: indwelling catheter Extremities exam: PRESENT: full ROM. ABSENT: calf tenderness, clubbing, pedal edema Musculoskeletal exam: PRESENT: normal inspection Neurological exam: PRESENT: altered, CN II-XII grossly intact, other - Confused. Skin exam: PRESENT: dry, intact, warm. ABSENT: cyanosis, rash Results Laboratory Results: WBC 20.7 10^3/uL (4.0-10.5) H 06/17/20 05:45 RBC 4.02 10^6/uL (3.72-5.28) 06/17/20 05:45 Hgb 9.5 g/dL (12.0-15.5) L 06/17/20 05:45 Hct 31.7 % (36.0-47.0) L 06/17/20 05:45 MCV 79 fl (80-97) L 06/17/20 05:45 MCH 23.7 pg (27.0-33.4) L 06/17/20 05:45 MCHC 30.0 g/dL (32.0-36.0) L 06/17/20 05:45 RDW 19.5 % (11.5-14.0) H 06/17/20 05:45 Plt Count 200 10^3/uL (150-450) 06/17/20 05:45 Lymph % (Auto) Not Reportable 06/17/20 05:45 [place] % (Auto) Not Reportable 06/17/20 05:45 Eos % (Auto) Not Reportable 06/17/20 05:45 Baso % (Auto) Not Reportable 06/17/20 05:45 Absolute Neuts (auto) Not Reportable 06/17/20 05:45 Absolute Lymphs (auto) Not Reportable 06/17/20 05:45 Absolute Monos (auto) Not Reportable 06/17/20 05:45 Absolute Eos (auto) Not Reportable 06/17/20 05:45 Absolute Basos (auto) Not Reportable 06/17/20 05:45 Total Counted 100 06/17/20 05:45 Seg Neutrophils % Not Reportable 06/17/20 05:45 Seg Neuts % (Manual) 94 % (42-78) H 06/17/20 05:45 Band Neutrophils % 2 % (3-5) L 06/17/20 05:45 Lymphocytes % (Manual) 1 % (13-45) L 06/17/20 05:45 Monocytes % (Manual) 3 % (3-13) 06/17/20 05:45 Eosinophils % (Manual) 0 % (0-6) 06/17/20 05:45 Basophils % (Manual) 0 % (0-2) 06/17/20 05:45 Abs Neuts (Manual) 19.9 10^3/uL (1.7-8.2) H 06/17/20 05:45 Abs Lymphs (Manual) 0.2 10^3/uL (0.5-4.7) L 06/17/20 05:45 Abs Monocytes (Manual) 0.6 10^3/uL (0.1-1.4) 06/17/20 05:45 Absolute Eos (Manual) 0.0 10^3/uL (0.0-0.6) 06/17/20 05:45 Abs Basophils (Manual) 0.0 10^3/uL (0.0-0.2) 06/17/20 05:45 Nucleated RBCs 2 /100 WBC (0) 06/17/20 05:45 Toxic Granulation SLIGHT 06/09/20 04:40 Clumped Platelets PRESENT 06/11/20 04:10 Platelet Comment ADEQUATE 06/17/20 05:45 Polychromasia SLIGHT 06/12/20 04:40 Hypochromasia 1+ 06/12/20 04:40 Poikilocytosis 2+ 06/17/20 05:45 Anisocytosis 2+ 06/17/20 05:45 Microcytosis SLIGHT 06/12/20 04:40 Target Cells 2+ 06/17/20 05:45 Tear Drop Cells 1+ 06/17/20 05:45 Ovalocytes 1+ 06/09/20 04:40 Helmet Cells SLIGHT 06/09/20 04:40 Maurisio Cells 1+ 06/12/20 04:40 Acanthocytes (Spur) 2+ 06/17/20 05:45 Schistocytes SLIGHT 06/12/20 04:40 PT 17.4 SEC (11.4-15.4) H 06/16/20 05:48 INR 1.41 06/16/20 05:48 Carbonic Acid 1.02 mmol/L (1.05-1.35) L 06/11/20 12:35 HCO3/H2CO3 Ratio 17:1 06/11/20 12:35 ABG pH 7.34 (7.35-7.45) L 06/11/20 12:35 ABG pCO2 33.9 mmHg (35-45) L 06/11/20 12:35 ABG pO2 63.6 mmHg (80-100) L 06/11/20 12:35 ABG HCO3 17.8 mmol/L (20-24) L 06/11/20 12:35 ABG Total CO2 18.9 mmol/L (21-25) L 06/11/20 12:35 ABG O2 Saturation 91.3 % (94-98) L 06/11/20 12:35 ABG Base Excess -7.1 mmol/L 06/11/20 12:35 FiO2 28% 06/11/20 12:35 Sodium 150.6 mmol/L (137-145) H 06/17/20 05:45 Potassium 3.4 mmol/L (3.6-5.0) L 06/17/20 05:45 Chloride 119 mmol/L (98-107) H 06/17/20 05:45 Carbon Dioxide 26 mmol/L (22-30) 06/17/20 05:45 Anion Gap 6 (5-19) 06/17/20 05:45 BUN 57 mg/dL (7-20) H 06/17/20 05:45 Creatinine 0.99 mg/dL (0.52-1.25) 06/17/20 05:45 Est GFR ( Amer) > 60 (>60) 06/17/20 05:45 Est GFR (MDRD) Non-Af 54 (>60) L 06/17/20 05:45 Glucose 368 mg/dL (75-110) H 06/17/20 05:45 POC Glucose 377 mg/dL (70-110) H 06/17/20 11:38 Lactic Acid 1.4 mmol/L (0.7-2.1) 06/07/20 07:50 Calcium 8.5 mg/dL (8.4-10.2) 06/17/20 05:45 Phosphorus 2.4 mg/dL (2.5-4.5) L 06/16/20 05:48 Magnesium 2.2 mg/dL (1.6-2.3) 06/16/20 05:48 Total Bilirubin 1.5 mg/dL (0.2-1.3) H 06/16/20 05:48 Direct Bilirubin 1.1 mg/dL (0.0-0.4) H 06/16/20 05:48 Neonat Total Bilirubin Not Reportable 06/16/20 05:48 Neonat Direct Bilirubin Not Reportable 06/16/20 05:48 Neonat Indirect Bili Not Reportable 06/16/20 05:48 AST 19 U/L (14-36) 06/16/20 05:48 ALT 19 U/L (<35) 06/16/20 05:48 Alkaline Phosphatase 55 U/L (38-126) 06/16/20 05:48 CK-MB (CK-2) 1.44 ng/mL (<4.55) 06/07/20 06:15 Troponin I 0.929 ng/mL 06/07/20 17:07 Total Protein 4.3 g/dL (6.3-8.2) L 06/16/20 05:48 Albumin 2.3 g/dL (3.5-5.0) L 06/16/20 05:48 Prealbumin 8.5 mg/dL (17.6-36.0) L 06/16/20 05:48 Triglycerides 334 mg/dL (<150) H 06/16/20 16:37 Random Cortisol 17.80 ug/dL (None Established) 06/06/20 07:50 Urine Color YELLOW 06/09/20 12:43 Urine Appearance SLIGHTLY-CLOUDY 06/09/20 12:43 Urine pH 8.0 (5.0-9.0) 06/09/20 12:43 Ur Specific [place] 1.010 06/09/20 12:43 Urine Protein >=500 mg/dL (NEGATIVE) H 06/09/20 12:43 Urine Glucose (UA) 150 mg/dL (NEGATIVE) H 06/09/20 12:43 Urine Ketones TRACE mg/dL (NEGATIVE) H 06/09/20 12:43 Urine Blood LARGE (NEGATIVE) H 06/09/20 12:43 Urine Nitrite NEGATIVE (NEGATIVE) 06/09/20 12:43 Urine Nitrite (Reflex) NEGATIVE (NEGATIVE) 06/04/20 14:15 Urine Bilirubin NEGATIVE (NEGATIVE) 06/09/20 12:43 Urine Urobilinogen NEGATIVE mg/dL (<2.0) 06/09/20 12:43 Ur Leukocyte Esterase MODERATE (NEGATIVE) H 06/09/20 12:43 Leukocyte Esterase Rfl TRACE (NEGATIVE) H 06/04/20 14:15 Urine WBC (Auto) 116 /HPF 06/09/20 12:43 Urine RBC (Auto) >182 /HPF 06/09/20 12:43 U Hyaline Cast (Auto) 8 /LPF 06/09/20 12:00 Urine RBC NONE SEEN /HPF 06/04/20 14:15 Urine WBC 20-30 /HPF 06/04/20 14:15 Squamous Epi Cells Auto <1 /HPF 06/09/20 12:00 Urine Bacteria 4+ /HPF 06/04/20 14:15 Urine Mucus (Auto) RARE /LPF 06/09/20 12:00 Urine Yeast (Budding) PRESENT /HPF 06/09/20 12:00 Urine Creatinine 64.5 mg/dL (15-278) 06/13/20 10:16 Urine Ascorbic Acid NEGATIVE (NEGATIVE) 06/09/20 12:43 Ivan Human Metapneumo PCR NOT DETECTED (NOT DETECT) 06/14/20 17:50 Time Trough Drawn 2205 06/15/20 22:05 Vancomycin Trough 13.1 ug/mL (5.0-20.0) 06/15/20 22:05 Adenovirus (PCR) NOT DETECTED (NOT DETECT) 06/14/20 17:50 B. pertussis DNA (PCR) NOT DETECTED (NOT DETECT) 06/14/20 17:50 B.parapertussis DNA PCR NOT DETECTED (NOT DETECT) 06/14/20 17:50 C. pneumoniae DNA (PCR) NOT DETECTED (NOT DETECT) 06/14/20 17:50 Coronavirus OC43 (PCR) NOT DETECTED (NOT DETECT) 06/14/20 17:50 Coronavirus HKU1 (PCR) NOT DETECTED (NOT DETECT) 06/14/20 17:50 Coronavirus 229E (PCR) NOT DETECTED (NOT DETECT) 06/14/20 17:50 COVID-19 Source Cancelled 06/04/20 14:39 COVID-19 (MAURICIO) Cancelled 06/04/20 14:39 Coronavirus NL63 (PCR) NOT DETECTED (NOT DETECT) 06/14/20 17:50 Influenza A (RT-PCR) NEGATIVE (NEGATIVE) 06/04/20 14:39 Influenza A (H1) PCR NOT DETECTED (NOT DETECT) 06/14/20 17:50 Influ A (H1N1/09) PCR NOT DETECTED (NOT DETECT) 06/14/20 17:50 Influenza A (H3) PCR NOT DETECTED (NOT DETECT) 06/14/20 17:50 Influenza Type A (PCR) NOT DETECTED (NOT DETECT) 06/14/20 17:50 Influenza B (RT-PCR) NEGATIVE (NEGATIVE) 06/04/20 14:39 Influenza Type B (PCR) NOT DETECTED (NOT DETECT) 06/14/20 17:50 M. pneumoniae (PCR) NOT DETECTED (NOT DETECT) 06/14/20 17:50 Parainfluenza 1 (PCR) NOT DETECTED (NOT DETECT) 06/14/20 17:50 Parainfluenza 2 (PCR) NOT DETECTED (NOT DETECT) 06/14/20 17:50 Parainfluenza 3 (PCR) NOT DETECTED (NOT DETECT) 06/14/20 17:50 Parainfluenza 4 (PCR) NOT DETECTED (NOT DETECT) 06/14/20 17:50 RSV (RT-PCR) NEGATIVE (NEGATIVE) 06/04/20 14:39 RSV (PCR) NOT DETECTED (NOT DETECT) 06/14/20 17:50 Entero/Rhino (PCR) NOT DETECTED (NOT DETECT) 06/14/20 17:50 SARS-CoV-2 (PCR) NOT DETECTED (NOT DETECT) 06/14/20 17:50 SARS-CoV-2 Rap RNA(RT-PCR) NEGATIVE (NEGATIVE) 06/04/20 14:39 Slides for Path Review PATHOLOGIST REVIEWED 06/13/20 09:23 Blood Type B POSITIVE 06/04/20 12:14 Antibody Screen NEGATIVE 06/04/20 12:14 Crossmatch See Detail 06/04/20 12:14 06/07/20 06/07/20 06/07/20 06:15 10:52 17:07 CK-MB (CK-2) 1.44 Troponin I 1.110 1.080 0.929 Impressions: Abdomen CT 06/04/20 11:42 IMPRESSION: See below IMPRESSION: 1. Large hiatal hernia containing the majority of the stomach which is within the RIGHT hemithorax, chronicity uncertain. There is evidence of a perforated viscus was large volume pneumoperitoneum. The point of perforation is not readily identifiable. Findings may be related to gastric volvulus secondary to large hiatal hernia although delineation of stomach anatomy is limited secondary to lack contrast and motion artifact. Additionally there is a questionable soft tissue mass in the region of the cecum with right pericolonic extraluminal gas. Small volume pelvic ascites, likely reactive. Recommend emergent surgical consultation. 2. Significant right lower lobe consolidation with small bilateral pleural effusion, possibly atelectasis or infection. 3. Multiple additional incidental findings as above. Findings discussed with Dr. Sheehan at 1333 hours on 06/04/2020. Chest CT 06/04/20 11:42 IMPRESSION: See below IMPRESSION: 1. Large hiatal hernia containing the majority of the stomach which is within the RIGHT hemithorax, chronicity uncertain. There is evidence of a perforated viscus was large volume pneumoperitoneum. The point of perforation is not readily identifiable. Findings may be related to gastric volvulus secondary to large hiatal hernia although delineation of stomach anatomy is limited secondary to lack contrast and motion artifact. Additionally there is a questionable soft tissue mass in the region of the cecum with right pericolonic extraluminal gas. Small volume pelvic ascites, likely reactive. Recommend emergent surgical consultation. 2. Significant right lower lobe consolidation with small bilateral pleural effusion, possibly atelectasis or infection. 3. Multiple additional incidental findings as above. Findings discussed with Dr. Sheehan at 1333 hours on 06/04/2020. KUB X-Ray 06/04/20 18:25 IMPRESSION: Nasogastric tube in the stomach. Chest X-Ray 06/05/20 00:00 IMPRESSION: No pneumothorax following right IJ central line placement. Chest X-Ray 06/10/20 04:00 IMPRESSION: Small bilateral pleural effusions Left lower lobe collapse/ consolidation Free intraperitoneal air Head CT 06/14/20 00:00 IMPRESSION: No acute findings identified. Motion artifact. EVIDENCE OF ACUTE STROKE: NO. Chest X-Ray 06/15/20 00:00 IMPRESSION: NO SIGNIFICANT CHANGE IN APPEARANCE OF THE CHEST. Plan Health Concerns: Pain at end of life. Plan of Treatment: To have a peaceful, painless end of life. Critical Time: 45 Level of Care: MEDICAL Stroke Is this a Stroke Patient?: No Acute Heart Failure Is this a Heart Failure Patient?: No
[2020-06-17] MEDS: CEFTRIAXONE 1 GM/D5W RTU 1 GM/50 ML RTUPB IV SCH (17:52)
[2020-06-17] MEDS: MORPHINE SULFATE 10 MG/ML INJ IV PRN ×2 (18:00→23:24)
[2020-06-18] MEDS: METRONIDAZOLE 500 MG/NS RTU 500 MG/100 ML RTUPB IV SCH ×2 (02:27→08:50)
--- NOTE | 2020-06-18 08:34 | PDOC PROGRESS REPORT ---
Subjective Date:: 06/18/20 Reason For Visit: PERFORATED CECUM Physical Exam Vital Signs: Temp Pulse Resp BP Pulse Ox 97.6 F 96 18 128/89 H 85 L 06/17/20 22:00 06/17/20 19:45 06/17/20 19:45 06/17/20 19:45 06/17/20 19:45 Intake & Output 06/17/20 06/18/20 06/19/20 06:59 06:59 06:59 Intake Total 1050 700 Output Total 1575 755 Balance -525 -55 Weight 84 kg 84 kg Results Laboratory Results: 06/17/20 05:45 06/17/20 05:45 06/15/20 18:27 Abdomen - Post Surgical Site Gram Stain - Final 06/15/20 18:27 Abdomen - Post Surgical Site Wound Culture - Final C.albicans/C.dubliniensis No Anaerobic Organisms 06/07/20 06/07/20 06/07/20 06:15 10:52 17:07 CK-MB (CK-2) 1.44 Troponin I 1.110 1.080 0.929 Impressions: Abdomen CT 06/04/20 11:42 IMPRESSION: See below IMPRESSION: 1. Large hiatal hernia containing the majority of the stomach which is within the RIGHT hemithorax, chronicity uncertain. There is evidence of a perforated viscus was large volume pneumoperitoneum. The point of perforation is not readily identifiable. Findings may be related to gastric volvulus secondary to large hiatal hernia although delineation of stomach anatomy is limited secondary to lack contrast and motion artifact. Additionally there is a questionable soft tissue mass in the region of the cecum with right pericolonic extraluminal gas. Small volume pelvic ascites, likely reactive. Recommend emergent surgical consultation. 2. Significant right lower lobe consolidation with small bilateral pleural effusion, possibly atelectasis or infection. 3. Multiple additional incidental findings as above. Findings discussed with Dr. Sheehan at 1333 hours on 06/04/2020. Chest CT 06/04/20 11:42 IMPRESSION: See below IMPRESSION: 1. Large hiatal hernia containing the majority of the stomach which is within the RIGHT hemithorax, chronicity uncertain. There is evidence of a perforated viscus was large volume pneumoperitoneum. The point of perforation is not readily identifiable. Findings may be related to gastric volvulus secondary to large hiatal hernia although delineation of stomach anatomy is limited secondary to lack contrast and motion artifact. Additionally there is a questionable soft tissue mass in the region of the cecum with right pericolonic extraluminal gas. Small volume pelvic ascites, likely reactive. Recommend emergent surgical consultation. 2. Significant right lower lobe consolidation with small bilateral pleural effusion, possibly atelectasis or infection. 3. Multiple additional incidental findings as above. Findings discussed with Dr. Sheehan at 1333 hours on 06/04/2020. KUB X-Ray 06/04/20 18:25 IMPRESSION: Nasogastric tube in the stomach. Head CT 06/14/20 00:00 IMPRESSION: No acute findings identified. Motion artifact. EVIDENCE OF ACUTE STROKE: NO. Chest X-Ray 06/15/20 00:00 IMPRESSION: NO SIGNIFICANT CHANGE IN APPEARANCE OF THE CHEST. 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 The patient was made comfort measures yesterday. Home hospice is being arranged. Today the patient is somnolent, but appears comfortable. She does not have any obvious evidence of discomfort. Continue with comfort measures. Continue with supportive care, as needed. Home with home hospice, once arranged.
--- NOTE | 2020-06-18 09:32 | PDOC DISCHARGE SUMMARY ---
General - Admit/Disc Date/PCP Admission Date/Primary Care Provider: 06/04/20 14:43 Discharge Date: 06/18/20 - Discharge Diagnosis Final Diagnosis: Perforated neuroendocrine cancer of the cecum, severe sepsis. - Assessment Summary: This patient is a 79 yo female who presented to the ED on 06/04 with confusion and evidence of an abdominal perforated viscus. She was taken to the OR by Dr. Morales where a R hemicolectomy was done for a perforated cecal cancer. Pathology showed a high grade neuroendocrine tumor with positive margins. She remained intubated for 2 days post-op, was extubated but never rallied. She remained weak, somewhat confused, and required bipap most of the time for increased work of breathing and generalized weakness. Her wound broke down and eventually dehisced. There was a fair amount of old blood material which continued to come from the superior portion of the wound. She continued to exhibit symptoms consistent with sepsis. At that point she would have required reexploration and intubation. Unfortunately the patient's medical status was so severe, that she would likely not survive such invasive measures. A discussion was held with the family. In light of her dire situation, she was made comfort measures. Home hospice was consulted. By 06/18/2020, home hospice was arranged. The patient at this time will be discharged to home with home hospice. - Additional Information Resuscitation Status: Comfort Measures Only Discharge Diet: As Tolerated Discharge Activity: Activity As Tolerated Referrals: [facility] [Provider Group] AVRIL BENOIT MD [ACTIVE STAFF] - (2 weeks after discharge in my office. Please arrange ) Home Medications: No Home Medications 06/04/20 History of Present Illiness History of Present Illness: DOLORES COATS is a 79 year old female Hospital Course Hospital Course: As explained previously she is to go to home hospice 06/18. Physical Exam Vital Signs: Temp Pulse Resp BP Pulse Ox 97.6 F 96 18 128/89 H 85 L 06/17/20 22:00 06/17/20 19:45 06/17/20 19:45 06/17/20 19:45 06/17/20 19:45 Intake & Output 06/17/20 06/18/20 06/19/20 06:59 06:59 06:59 Intake Total 1050 700 Output Total 1575 755 Balance -525 -55 Weight 84 kg 84 kg Results Laboratory Results: WBC 20.7 10^3/uL (4.0-10.5) H 06/17/20 05:45 RBC 4.02 10^6/uL (3.72-5.28) 06/17/20 05:45 Hgb 9.5 g/dL (12.0-15.5) L 06/17/20 05:45 Hct 31.7 % (36.0-47.0) L 06/17/20 05:45 MCV 79 fl (80-97) L 06/17/20 05:45 MCH 23.7 pg (27.0-33.4) L 06/17/20 05:45 MCHC 30.0 g/dL (32.0-36.0) L 06/17/20 05:45 RDW 19.5 % (11.5-14.0) H 06/17/20 05:45 Plt Count 200 10^3/uL (150-450) 06/17/20 05:45 Lymph % (Auto) Not Reportable 06/17/20 05:45 [place] % (Auto) Not Reportable 06/17/20 05:45 Eos % (Auto) Not Reportable 06/17/20 05:45 Baso % (Auto) Not Reportable 06/17/20 05:45 Absolute Neuts (auto) Not Reportable 06/17/20 05:45 Absolute Lymphs (auto) Not Reportable 06/17/20 05:45 Absolute Monos (auto) Not Reportable 06/17/20 05:45 Absolute Eos (auto) Not Reportable 06/17/20 05:45 Absolute Basos (auto) Not Reportable 06/17/20 05:45 Total Counted 100 06/17/20 05:45 Seg Neutrophils % Not Reportable 06/17/20 05:45 Seg Neuts % (Manual) 94 % (42-78) H 06/17/20 05:45 Band Neutrophils % 2 % (3-5) L 06/17/20 05:45 Lymphocytes % (Manual) 1 % (13-45) L 06/17/20 05:45 Monocytes % (Manual) 3 % (3-13) 06/17/20 05:45 Eosinophils % (Manual) 0 % (0-6) 06/17/20 05:45 Basophils % (Manual) 0 % (0-2) 06/17/20 05:45 Abs Neuts (Manual) 19.9 10^3/uL (1.7-8.2) H 06/17/20 05:45 Abs Lymphs (Manual) 0.2 10^3/uL (0.5-4.7) L 06/17/20 05:45 Abs Monocytes (Manual) 0.6 10^3/uL (0.1-1.4) 06/17/20 05:45 Absolute Eos (Manual) 0.0 10^3/uL (0.0-0.6) 06/17/20 05:45 Abs Basophils (Manual) 0.0 10^3/uL (0.0-0.2) 06/17/20 05:45 Nucleated RBCs 2 /100 WBC (0) 06/17/20 05:45 Toxic Granulation SLIGHT 06/09/20 04:40 Clumped Platelets PRESENT 06/11/20 04:10 Platelet Comment ADEQUATE 06/17/20 05:45 Polychromasia SLIGHT 06/12/20 04:40 Hypochromasia 1+ 06/12/20 04:40 Poikilocytosis 2+ 06/17/20 05:45 Anisocytosis 2+ 06/17/20 05:45 Microcytosis SLIGHT 06/12/20 04:40 Target Cells 2+ 06/17/20 05:45 Tear Drop Cells 1+ 06/17/20 05:45 Ovalocytes 1+ 06/09/20 04:40 Helmet Cells SLIGHT 06/09/20 04:40 Maurisio Cells 1+ 06/12/20 04:40 Acanthocytes (Spur) 2+ 06/17/20 05:45 Schistocytes SLIGHT 06/12/20 04:40 PT 17.4 SEC (11.4-15.4) H 06/16/20 05:48 INR 1.41 06/16/20 05:48 Carbonic Acid 1.02 mmol/L (1.05-1.35) L 06/11/20 12:35 HCO3/H2CO3 Ratio 17:1 06/11/20 12:35 ABG pH 7.34 (7.35-7.45) L 06/11/20 12:35 ABG pCO2 33.9 mmHg (35-45) L 06/11/20 12:35 ABG pO2 63.6 mmHg (80-100) L 06/11/20 12:35 ABG HCO3 17.8 mmol/L (20-24) L 06/11/20 12:35 ABG Total CO2 18.9 mmol/L (21-25) L 06/11/20 12:35 ABG O2 Saturation 91.3 % (94-98) L 06/11/20 12:35 ABG Base Excess -7.1 mmol/L 06/11/20 12:35 FiO2 28% 06/11/20 12:35 Sodium 150.6 mmol/L (137-145) H 06/17/20 05:45 Potassium 3.4 mmol/L (3.6-5.0) L 06/17/20 05:45 Chloride 119 mmol/L (98-107) H 06/17/20 05:45 Carbon Dioxide 26 mmol/L (22-30) 06/17/20 05:45 Anion Gap 6 (5-19) 06/17/20 05:45 BUN 57 mg/dL (7-20) H 06/17/20 05:45 Creatinine 0.99 mg/dL (0.52-1.25) 06/17/20 05:45 Est GFR ( Amer) > 60 (>60) 06/17/20 05:45 Est GFR (MDRD) Non-Af 54 (>60) L 06/17/20 05:45 Glucose 368 mg/dL (75-110) H 06/17/20 05:45 POC Glucose 377 mg/dL (70-110) H 06/17/20 11:38 Lactic Acid 1.4 mmol/L (0.7-2.1) 06/07/20 07:50 Calcium 8.5 mg/dL (8.4-10.2) 06/17/20 05:45 Phosphorus 2.4 mg/dL (2.5-4.5) L 06/16/20 05:48 Magnesium 2.2 mg/dL (1.6-2.3) 06/16/20 05:48 Total Bilirubin 1.5 mg/dL (0.2-1.3) H 06/16/20 05:48 Direct Bilirubin 1.1 mg/dL (0.0-0.4) H 06/16/20 05:48 Neonat Total Bilirubin Not Reportable 06/16/20 05:48 Neonat Direct Bilirubin Not Reportable 06/16/20 05:48 Neonat Indirect Bili Not Reportable 06/16/20 05:48 AST 19 U/L (14-36) 06/16/20 05:48 ALT 19 U/L (<35) 06/16/20 05:48 Alkaline Phosphatase 55 U/L (38-126) 06/16/20 05:48 CK-MB (CK-2) 1.44 ng/mL (<4.55) 06/07/20 06:15 Troponin I 0.929 ng/mL 06/07/20 17:07 Total Protein 4.3 g/dL (6.3-8.2) L 06/16/20 05:48 Albumin 2.3 g/dL (3.5-5.0) L 06/16/20 05:48 Prealbumin 8.5 mg/dL (17.6-36.0) L 06/16/20 05:48 Triglycerides 334 mg/dL (<150) H 06/16/20 16:37 Random Cortisol 17.80 ug/dL (None Established) 06/06/20 07:50 Urine Color YELLOW 06/09/20 12:43 Urine Appearance SLIGHTLY-CLOUDY 06/09/20 12:43 Urine pH 8.0 (5.0-9.0) 06/09/20 12:43 Ur Specific [place] 1.010 06/09/20 12:43 Urine Protein >=500 mg/dL (NEGATIVE) H 06/09/20 12:43 Urine Glucose (UA) 150 mg/dL (NEGATIVE) H 06/09/20 12:43 Urine Ketones TRACE mg/dL (NEGATIVE) H 06/09/20 12:43 Urine Blood LARGE (NEGATIVE) H 06/09/20 12:43 Urine Nitrite NEGATIVE (NEGATIVE) 06/09/20 12:43 Urine Nitrite (Reflex) NEGATIVE (NEGATIVE) 06/04/20 14:15 Urine Bilirubin NEGATIVE (NEGATIVE) 06/09/20 12:43 Urine Urobilinogen NEGATIVE mg/dL (<2.0) 06/09/20 12:43 Ur Leukocyte Esterase MODERATE (NEGATIVE) H 06/09/20 12:43 Leukocyte Esterase Rfl TRACE (NEGATIVE) H 06/04/20 14:15 Urine WBC (Auto) 116 /HPF 06/09/20 12:43 Urine RBC (Auto) >182 /HPF 06/09/20 12:43 U Hyaline Cast (Auto) 8 /LPF 06/09/20 12:00 Urine RBC NONE SEEN /HPF 06/04/20 14:15 Urine WBC 20-30 /HPF 06/04/20 14:15 Squamous Epi Cells Auto <1 /HPF 06/09/20 12:00 Urine Bacteria 4+ /HPF 06/04/20 14:15 Urine Mucus (Auto) RARE /LPF 06/09/20 12:00 Urine Yeast (Budding) PRESENT /HPF 06/09/20 12:00 Urine Creatinine 64.5 mg/dL (15-278) 06/13/20 10:16 Urine Ascorbic Acid NEGATIVE (NEGATIVE) 06/09/20 12:43 Ivan Human Metapneumo PCR NOT DETECTED (NOT DETECT) 06/14/20 17:50 Time Trough Drawn 2205 06/15/20 22:05 Vancomycin Trough 13.1 ug/mL (5.0-20.0) 06/15/20 22:05 Adenovirus (PCR) NOT DETECTED (NOT DETECT) 06/14/20 17:50 B. pertussis DNA (PCR) NOT DETECTED (NOT DETECT) 06/14/20 17:50 B.parapertussis DNA PCR NOT DETECTED (NOT DETECT) 06/14/20 17:50 C. pneumoniae DNA (PCR) NOT DETECTED (NOT DETECT) 06/14/20 17:50 Coronavirus OC43 (PCR) NOT DETECTED (NOT DETECT) 06/14/20 17:50 Coronavirus HKU1 (PCR) NOT DETECTED (NOT DETECT) 06/14/20 17:50 Coronavirus 229E (PCR) NOT DETECTED (NOT DETECT) 06/14/20 17:50 COVID-19 Source Cancelled 06/04/20 14:39 COVID-19 (MAURICIO) Cancelled 06/04/20 14:39 Coronavirus NL63 (PCR) NOT DETECTED (NOT DETECT) 06/14/20 17:50 Influenza A (RT-PCR) NEGATIVE (NEGATIVE) 06/04/20 14:39 Influenza A (H1) PCR NOT DETECTED (NOT DETECT) 06/14/20 17:50 Influ A (H1N1/09) PCR NOT DETECTED (NOT DETECT) 06/14/20 17:50 Influenza A (H3) PCR NOT DETECTED (NOT DETECT) 06/14/20 17:50 Influenza Type A (PCR) NOT DETECTED (NOT DETECT) 06/14/20 17:50 Influenza B (RT-PCR) NEGATIVE (NEGATIVE) 06/04/20 14:39 Influenza Type B (PCR) NOT DETECTED (NOT DETECT) 06/14/20 17:50 M. pneumoniae (PCR) NOT DETECTED (NOT DETECT) 06/14/20 17:50 Parainfluenza 1 (PCR) NOT DETECTED (NOT DETECT) 06/14/20 17:50 Parainfluenza 2 (PCR) NOT DETECTED (NOT DETECT) 06/14/20 17:50 Parainfluenza 3 (PCR) NOT DETECTED (NOT DETECT) 06/14/20 17:50 Parainfluenza 4 (PCR) NOT DETECTED (NOT DETECT) 06/14/20 17:50 RSV (RT-PCR) NEGATIVE (NEGATIVE) 06/04/20 14:39 RSV (PCR) NOT DETECTED (NOT DETECT) 06/14/20 17:50 Entero/Rhino (PCR) NOT DETECTED (NOT DETECT) 06/14/20 17:50 SARS-CoV-2 (PCR) NOT DETECTED (NOT DETECT) 06/14/20 17:50 SARS-CoV-2 Rap RNA(RT-PCR) NEGATIVE (NEGATIVE) 06/04/20 14:39 Slides for Path Review PATHOLOGIST REVIEWED 06/13/20 09:23 Blood Type B POSITIVE 06/04/20 12:14 Antibody Screen NEGATIVE 06/04/20 12:14 Crossmatch See Detail 06/04/20 12:14 06/07/20 06/07/20 06/07/20 06:15 10:52 17:07 CK-MB (CK-2) 1.44 Troponin I 1.110 1.080 0.929 Impressions: Abdomen CT 06/04/20 11:42 IMPRESSION: See below IMPRESSION: 1. Large hiatal hernia containing the majority of the stomach which is within the RIGHT hemithorax, chronicity uncertain. There is evidence of a perforated viscus was large volume pneumoperitoneum. The point of perforation is not readily identifiable. Findings may be related to gastric volvulus secondary to large hiatal hernia although delineation of stomach anatomy is limited secondary to lack contrast and motion artifact. Additionally there is a questionable soft tissue mass in the region of the cecum with right pericolonic extraluminal gas. Small volume pelvic ascites, likely reactive. Recommend emergent surgical consultation. 2. Significant right lower lobe consolidation with small bilateral pleural effusion, possibly atelectasis or infection. 3. Multiple additional incidental findings as above. Findings discussed with Dr. Sheehan at 1333 hours on 06/04/2020. Chest CT 06/04/20 11:42 IMPRESSION: See below IMPRESSION: 1. Large hiatal hernia containing the majority of the stomach which is within the RIGHT hemithorax, chronicity uncertain. There is evidence of a perforated viscus was large volume pneumoperitoneum. The point of perforation is not readily identifiable. Findings may be related to gastric volvulus secondary to large hiatal hernia although delineation of stomach anatomy is limited secondary to lack contrast and motion artifact. Additionally there is a questionable soft tissue mass in the region of the cecum with right pericolonic extraluminal gas. Small volume pelvic ascites, likely reactive. Recommend emergent surgical consultation. 2. Significant right lower lobe consolidation with small bilateral pleural effusion, possibly atelectasis or infection. 3. Multiple additional incidental findings as above. Findings discussed with Dr. Sheehan at 1333 hours on 06/04/2020. KUB X-Ray 06/04/20 18:25 IMPRESSION: Nasogastric tube in the stomach. Chest X-Ray 06/05/20 00:00 IMPRESSION: No pneumothorax following right IJ central line placement. Chest X-Ray 06/10/20 04:00 IMPRESSION: Small bilateral pleural effusions Left lower lobe collapse/ consolidation Free intraperitoneal air Head CT 06/14/20 00:00 IMPRESSION: No acute findings identified. Motion artifact. EVIDENCE OF ACUTE STROKE: NO. Chest X-Ray 06/15/20 00:00 IMPRESSION: NO SIGNIFICANT CHANGE IN APPEARANCE OF THE CHEST. Plan Health Concerns: Pain at end of life. Plan of Treatment: To have a peaceful, painless end of life.
[2020-06-18] MEDS: FLUCONAZOLE 200 MG/NS RTU 200 MG/100 ML RTUPB IV SCH (11:31)
[2020-06-18] MEDS: NYSTATIN TOPICAL POWDER 15 GM TP SCH (11:35)
[2020-06-18 13:20] VITALS: BP 131/66
[2020-06-18] MEDS: VANCOMYCIN HCL 750 MG in DEXTROSE 5%-WATER 250 ML IV SCH (13:22)
== END 2020-06-18 13:24 | disposition hospice, home (50) | DRG 853 ==
LOC: ER 11:18 → EH 14:43 → ICU 18:19 → 4N 06-17 17:21
PROVIDERS: ADMIT Surgery; ATTEND Surgery
PROC: 5A1945Z Respiratory Ventilation, 24-96 Consecutive Hours (ICD-10-PCS; 2020-06-04)
PROC: 0BH17EZ Insertion of Endotracheal Airway into Trachea, Via Natural or Artificial Opening (ICD-10-PCS; 2020-06-04)
PROC: 30233N1 Transfusion of Nonautologous Red Blood Cells into Peripheral Vein, Percutaneous Approach (ICD-10-PCS; 2020-06-04)
PROC: 0DTF0ZZ Resection of Right Large Intestine, Open Approach (ICD-10-PCS; principal; 2020-06-04 16:00)
PROC: 02HV33Z Insertion of Infusion Device into Superior Vena Cava, Percutaneous Approach (ICD-10-PCS; 2020-06-05)
PROC: 5A09557 Assistance with Respiratory Ventilation, Greater than 96 Consecutive Hours, Continuous Positive Airway Pressure (ICD-10-PCS; 2020-06-08)
PROC: 3E0436Z Introduction of Nutritional Substance into Central Vein, Percutaneous Approach (ICD-10-PCS; 2020-06-13)
DX: A41.9 Sepsis, unspecified organism (principal); K63.1 Perforation of intestine (nontraumatic); R65.21 Severe sepsis with septic shock; J96.01 Acute respiratory failure with hypoxia; C7A.8 Other malignant neuroendocrine tumors; N39.0 Urinary tract infection, site not specified; I47.1 Supraventricular tachycardia; T81.32XA Disruption of internal operation (surgical) wound, not elsewhere classified, initial encounter; J95.89 Other postprocedural complications and disorders of respiratory system, not elsewhere classified; J98.11 Atelectasis; C77.2 Secondary and unspecified malignant neoplasm of intra-abdominal lymph nodes; R34 Anuria and oliguria; K44.9 Diaphragmatic hernia without obstruction or gangrene; Z78.1 Physical restraint status; Z20.828 Contact with and (suspected) exposure to other viral communicable diseases; Z51.5 Encounter for palliative care; E86.0 Dehydration; B96.20 Unspecified Escherichia coli [E. coli] as the cause of diseases classified elsewhere; E66.01 Morbid (severe) obesity due to excess calories; Z68.35 Body mass index [BMI] 35.0-35.9, adult; Y83.6 Removal of other organ (partial) (total) as the cause of abnormal reaction of the patient, or of later complication, without mention of misadventure at the time of the procedure
CPT/HCPCS: 00790; 0202U; 36415; 36430; 36556; 70450; 71045; 71250; 74018; 74150; 80048; 80053; 80202; 81001; 82040; 82533; 82553; 82570; 82803; 82962; 83605; 83735; 84100; 84134; 84478; 84484; 85025; 85027; 85610; 86850; 86900; 86901; 86920; 87040; 87070; 87086; 87088; 87186; 87205; 88307; 88341; 88342; 93005; 93010; 94002; 94003; 94640; 94660; 96361; 96365; 96375; 99140; 99238; 99239; 99285; 99291; 0241U; C1758; C9290; C9803; J0153; J0282; J0295; J0696; J1100; J1160; J1170; J1450; J1650; J1815; J1940; J2270; J2370; J2405; J2543; J3010; J3370; J3475; J3490; J7030; J7050; J7060; J7120; J7121; P9016; P9047; S0028